=== PATIENT | female | born 1945 | race Caucasian/White ===

== ENCOUNTER 2022-07-09 16:43 | Outpatient (CLI) | payer MEDICARE, OTHER, SELFPAY ==
--- NOTE | ~2022-07-09 | MM_ITS ---
EXAMINATION: MM screening macarena BI w ernesto HISTORY: Screening mammogram TECHNIQUE: Craniocaudal and mediolateral oblique 3-D tomosynthesis images were obtained and synthetic 2-D images were generated. CAD analysis was submitted and interpreted. COMPARISON: No prior mammogram is available for comparison at this institution. BREAST PARENCHYMAL COMPOSITION: There are scattered areas of fibroglandular density. FINDINGS: RIGHT BREAST: There is a 2.8 cm mass in the posterior third of the upper outer quadrant of the breast 11 cm from the nipple with associated retraction of the overlying skin. LEFT BREAST: There is no suspicious mass, calcification, or architectural distortion to suggest malig jil. IMPRESSION: 1. Right breast mass. 2. Additional mammographic views and possible breast ultrasound are recommended. BI-RADS Category 0: Incomplete: Needs additional imaging evaluation. Reviewed, dictated and finalized at location A. IMPRESSION: 1. Right breast mass. 2. Additional mammographic views and possible breast ultrasound are recommended . BI-RADS Category 0: Incomplete: Needs additional imaging evaluation.
== END 2022-07-09 16:44 | disposition home or self-care (01) ==
PROVIDERS: PCP Emergency Medicine; Visit Provider Emergency Medicine
DX: Z12.31 Encounter for screening mammogram for malignant neoplasm of breast (principal); R92.8 Other abnormal and inconclusive findings on diagnostic imaging of breast
CPT/HCPCS: 77063; 77067

== ENCOUNTER 2022-07-31 13:12 | Outpatient (CLI) | payer MEDICARE, OTHER, SELFPAY ==
--- NOTE | ~2022-07-31 | MMUS_ITS ---
EXAMINATION: MM diagnostic macarena RT w ernesto, US breast RT limited HISTORY: Breast mass seen on prior examination. TECHNIQUE: Additional 3-D tomosynthesis images of the right breast were performed and synthetic 2-D i mages were generated. CAD analysis was submitted and interpreted. High resolution Limited right breas t ultrasound was performed. COMPARISON: 07/09/2022 BREAST PARENCHYMAL COMPOSITION: Breast composed of scattered areas of fibroglandular density FINDINGS: MAMMOGRAPHIC FINDINGS: There is a spiculated mass in the upper outer quadrant of the right breast with overlying skin thicke shin. This mass measures approximately 2.9 cm greatest dimension by mammography. ULTRASOUND: Limited right breast ultrasound: At 10:00, 7 cm from the nipple, there is an irregular shaped hypoech oic mass with antiparallel configuration and internal vascularity. This mass measures 2.5 x 2.2 x 2.2 cm. No significant posterior shadowing. IMPRESSION: 1. Complex right breast mass at 10:00, 7 cm from the nipple with spiculated margins. 2. Recommend ultrasound-guided right breast biopsy. BI-RADS category 5, highly suggestive of malignancy. Reviewed, dictated and finalized at location A. IMPRESSION: 1. Complex right breast mass at 10:00, 7 cm from the nipple with spiculated mar gins. 2. Recommend ultrasound-guided right breast biopsy. BI-RADS category 5, highly suggestive of malignancy.
== END 2022-07-31 13:13 | disposition home or self-care (01) ==
LOC: ANHIMG 13:13
PROVIDERS: PCP Emergency Medicine; Visit Provider Emergency Medicine
DX: R92.8 Other abnormal and inconclusive findings on diagnostic imaging of breast (principal)
CPT/HCPCS: 76642; 77061; 77065; G0279

== ENCOUNTER 2022-08-21 08:38 | Outpatient (CLI) | payer MEDICARE, OTHER, SELFPAY ==
--- NOTE | ~2022-08-21 | MMUS_ITS ---
US breast biopsy RT w image, MM post biopsy invasive RT EXAMINATION: US GUIDED NEEDLE BIOPSY WITH VACUUM ASSISTANCE DATE: 08/21/2022 10:06 CDT INDICATION: Palpable right breast mass. Recent ultrasound demonstrated a 14 mm hypoechoic solid lesi on. Ultrasound-guided core biopsy is requested to evaluate for malignancy. TECHNIQUE AND FINDINGS: The risks and potential benefits of the procedure were discussed with the patient, and written inform ed consent was obtained. After sterile preparation of the right breast, 1% lidocaine was utilized fo r local anesthesia. 1% lidocaine with epinephrine was used for deep anesthesia. A 10G vacuum-assisted biopsy gun needle was advanced through to the outer edge of the region of inter est from a lateral approach utilizing sonographic guidance. A total of 5 tissue core samples were ob tained through the lesion. An Inrad tissue marker clip was then placed at the biopsy site. Hemostasi s was achieved. The patient tolerated procedure well and there was no evidence of immediate complication. The patien t was given verbal instructions partly is from the department. Right breast mammograms to document t issue marker clip placement. The tissue samples were submitted to surgical pathology for histologic a nalysis. IMPRESSION: 1. Successful ultrasound-guided vacuum-assisted biopsy of right breast mass with tissue marker place ment. Please refer to pathology report for histologic analysis. Reviewed, dictated and finalized at location A. IMPRESSION: 1. Successful ultrasound-guided vacuum-assisted biopsy of right breast mass wi th tissue marker placement. Please refer to pathology report for histologic vito lysis.
== END 2022-08-21 08:39 | disposition home or self-care (01) ==
PROVIDERS: PCP Emergency Medicine; Visit Provider Surgery
DX: N63.11 Unspecified lump in the right breast, upper outer quadrant (principal); D05.11 Intraductal carcinoma in situ of right breast
CPT/HCPCS: 19083; 88305; 88342; 88365; A4648

== ENCOUNTER 2022-10-14 10:21 | Outpatient (CLI) | payer MEDICARE, OTHER, SELFPAY ==
--- NOTE | 2022-10-14 10:46 | ECG_ITS ---
Measurements Intervals [place] Rate: 62 P: -75 LA: 150 QRS: -25 QRSD: 117 T: 128 QT: 417 QTc: 426 Interpretive Statements SINUS RHYTHM BASELINE ARTIFACT NONSPECIFIC INTRAVENTRICULAR CONDUCTION DELAY BORDERLINE ECG NO PREVIOUS ECG AVAILABLE FOR COMPARISON Electronically Signed On 10-14-2022 17:56:11 BAND RIPSAW OPERATOR by Jeffery Muir M.D.
[2022-10-14 11:28] LABS: Anion Gap 6 mmol/L (8-16); Blood Urea Nitrogen 21 mg/dL (7-17); Carbon Dioxide 32 mmol/L (22-30); Chloride 94 mmol/L (98-107); Estimated Glomerular Filt Rate 54; Glucose 154 mg/dL (65-110); Potassium 3.4 mmol/L (3.4-5.0); Sodium 132 mmol/L (137-145)
== END 2022-10-14 10:22 | disposition home or self-care (01) ==
PROVIDERS: Anesthesiology; PCP Emergency Medicine; Visit Provider Surgery
DX: E11.9 Type 2 diabetes mellitus without complications (principal); I45.9 Conduction disorder, unspecified
CPT/HCPCS: 36415; 80048; 93005

== ENCOUNTER 2022-10-15 01:17 | Day surgery (SDC) | payer MEDICARE, OTHER, SELFPAY ==
[2022-10-02 10:21] VITALS: BMI 27.9
--- NOTE | 2022-10-02 10:37 | PC.NURSE ---
PRE-OP INSTRUCTIONS, PLEASE READ CAREFULLY Report to the Outpatient Waiting Room, entrance under the green pavilion located off [facility], at time _0830_ on date _10/15/22_. Planned Procedure Time: _1200_. NEEDLE LOCALIZATION SCHEDULED FOR 0930 Time changes happen often and if your time is changed the preop area will call you the afternoon before. - You and your visitor will be asked to self-screen and do not enter if you have any COVID symptoms. - Only one visitor is requested with a max of two and NO children visitors are allowed at this time. - The patient visitor may be requested to leave or wait in car when not with patient due to distancing restrictions. - A mask is required within the hospital. Patients may have clear liquids (water, carbonated beverages, clear teas, apple juice) until 3 hours prior to surgery (0900 AM) with a maximum of 20 ounces. - No food from midnight until time of surgery Take the following medications with a SIP of water the morning of surgery: _ASPIRIN PER DR. BEAUCHAMP, ISOSORBIDE, METOPROLOL_ Medications to discontinue _MELOXICAM PER DR. BEAUCHAMP_ Please no make-up, nail [place], hairspray, perfume, deodorant, or body powder the day of surgery. No jewelry (including any body piercings) or valuables the day of surgery, leave them at home. Please take a shower or bath the night before, or the morning of, surgery with an antibacterial soap. Wear comfortable, loose fitting clothing. - Jewelry must be removed prior to entering the operating room. Rings and piercings that are not removed may be cut off. - The hospital will not accept responsibility for valuables. - Please leave all valuables, including medications, at home the day of surgery. If you are going home after surgery, a licensed regional truck driver must drive you home. - NO public transportation without another adult if you receive anesthesia. - We recommend that an adult stay with you for 24 hours following discharge. - We also recommend that you do not drive, make important decision, drink alcoholic beverages, or take any drugs that were not prescribed by your health care provider for at least 24 hours after your discharge time. Follow any additional instructions given to you from your surgeon. HIBICLENS SHOWER DIRECTED If you or anyone in your household have experienced Covid symptoms in the past week, please notify your surgeon or the nurse liaison at the phone number below for possible testing. Telephone instructions given to _PATIENT_and asked if any additional questions and then verbalized understanding. Patient advised to call surgeon office or pre surgery nurse liaison [phone] if any additional questions.
[2022-10-15] VITALS (7 sets, daily range): BP systolic 101–129; BP diastolic 62–87; PULSE 52–63; RESP 16–22; TEMP 36.4–37.1; O2SAT 95–99
--- NOTE | ~2022-10-15 | NM_ITS ---
NM sentinel node inject only DATE: 10/15/2022 11:05 INDICATION: Preoperative radiopharmaceutical injection for sentinel node detection and axillary lymph node dissection for breast cancer TECHNIQUE: 4 equally divided doses totaling cumulative 1.311 mCi 99m technetium Lymphoseek were injec oralia subdermally at 12:00, 3:00, 6:00 and 9:00 periareolar locations. The patient was very cooperative and tolerated procedure without complaint. IMPRESSION: Preoperative periareolar subdermal 1.311 mCi 99m technetium Lymphoseek injections Reviewed, dictated and finalized at Location A. Reviewed, dictated and finalized at location A. HER OF THE HEARING IMPAIRED IMPRESSION: Preoperative periareolar subdermal 1.311 mCi 99m technetium Lympho seek injections
--- NOTE | ~2022-10-15 | MM_ITS ---
MM surgical specimen RT DATE: 10/15/2022 13:02 INDICATION: Surgical specimen TECHNIQUE: Single noncompression digital mammographic exposure of surgical soft tissue specimen COMPARISON: 10/15/2022 right renal localization mammographic images 08/21/2022 post biopsy mammogram 07/31/2022 diagnostic right mammogram FINDINGS: The approximately 3 cm mass with biopsy marker and guidewire are present within the surgica l specimen. IMPRESSION: Successful surgical excision of posterior upper outer quadrant right breast mass with mar ker Reviewed, dictated and finalized at Location A. Reviewed, dictated and finalized at location A. K AND CASE MAKER IMPRESSION: Successful surgical excision of posterior upper outer quadrant righ t breast mass with marker
--- NOTE | ~2022-10-15 | MM_ITS ---
MM needle loc RT DATE: 10/15/2022 11:33 INDICATION: Preoperative sonographically guided wire localization of right breast mass/mass marker TECHNIQUE: The purpose of the procedure, technique and potential locations were discussed with the geraldine cristobal. The patient indicated understanding and gave consent. The breast was placed in biopsy apparatus in lateral medial position with biopsy grid over the occupational therapist per diem ior upper outer right breast. The skin was prepared with sterile Betadine solution. 1% lidocaine loca l anesthetic was administered to the skin and underlying subcutaneous tissues. A 5 cm [place] Mammalok needle was introduced into the mass from a lateral approach. Mediolateral and craniocaudal mammograph ic exposures confirmed appropriate position of the needle within the mass. The wire was engaged throu gh the tip of the needle and the needle was withdrawn. Final lateral medial and craniocaudal views confirm the wire within the posterior upper outer quadran t approximately 3 cm mass. IMPRESSION: Successful preoperative mammographically guided wire localization of 3 cm posterior upper outer quadrant right breast mass Reviewed, dictated and finalized at Location A. Reviewed, dictated and finalized at location A. [employer] IMPRESSION: Successful preoperative mammographically guided wire localization o f 3 cm posterior upper outer quadrant right breast mass
[2022-10-15] MEDS: ACETAMINOPHEN 500 MG TABLET 1000 MG PO (08:38)
[2022-10-15] MEDS: KETOROLAC 15 MG/ML VIAL (*BKC) IV PUSH (10:26)
--- NOTE | 2022-10-15 11:03 | WPDANESEPPF ---
Anes - Initial Pre Proc Eval Procedure: Operation Date: 10/15/22 12:00 Proposed Procedures p Right Breast Lumpectomy with [place] Lymph Node Biopsy, - Tatianna Lala MD s Right Breast Ultrasound and/or Mammogram Guided Needle Localization with Lymphoscintography - Tatianna Lala MD Date/Time: 10/15/22 11:03 Surgeon: Tatianna Lala MD Pre Op Diagnosis: right breast CA Patient Data Age: 77 Gender: F Height: 1.64 m Weight: 72.3 kg Last Vital Signs Temp 98.7 F 10/15/22 08:46 Pulse 54 L 10/15/22 08:46 Resp 16 10/15/22 08:46 BP 120/70 10/15/22 08:46 Pulse Ox 98 10/15/22 08:46 O2 Del Method Room Air 10/15/22 08:46 Allergies Allergy/AdvReac Type Severity Reaction Status Date / Time No Known Allergies Allergy Verified 10/15/22 08:31 Home Medications Medication Instructions Recorded Confirmed Type atorvastatin 80 mg tablet 80 mg PO DAILY 11/19/20 10/15/22 History furosemide 40 mg tablet See Rx Instructions PO QAM 11/19/20 10/15/22 History isosorbide mononitrate 30 mg 30 mg PO DAILY 11/19/20 10/15/22 History tablet,extended release 24 hr losartan 25 mg tablet 25 mg PO DAILY 11/19/20 10/15/22 History metoprolol tartrate 100 mg tablet 100 mg PO DAILY 11/19/20 10/15/22 History potassium chloride 20 mEq 40 meq PO BID 11/19/20 10/15/22 History tablet,extended release(part/cryst) (Klor-Con M) spironolactone 25 mg tablet 25 mg PO DAILY 11/19/20 10/15/22 History glipizide 10 mg tablet See Rx Instructions .Route 10/14/21 10/15/22 Rx .COMPLEX #180 tabs aspirin 81 mg tablet,delayed 81 mg PO DAILY 12/30/21 10/15/22 History release (Adult Low Dose Aspirin) meloxicam 7.5 mg tablet 7.5 mg PO DAILY #90 tabs 07/07/22 10/15/22 Rx sitagliptin phosphate 50 mg tablet 50 mg PO DAILY #90 tabs 07/11/22 10/15/22 Rx (Januvia) chlorhexidine gluconate 4 % 1 applic topical .COMPLEX #118 mL 09/22/22 10/15/22 Rx topical liquid (Hibicletori) metolazone 2.5 mg tablet 2.5 mg QAM 10/02/22 10/15/22 History Patient hx anesthesia problems: none Family hx anesthesia problems: none Results Review: All pre-operative results and documents have been reviewed as part of the pre-operative evaluation. [facility] Past Medical History Medical History AAA (abdominal aortic aneurysm) (~2018) Arthritis Blurred vision Bronchitis CAD (coronary artery disease) Cataracts, both eyes CHF (congestive heart failure) Chicken pox Chronic pain Diabetes mellitus Flatulence High cholesterol HLD (hyperlipidemia) HTN (hypertension) Knee effusion, right Mumps Other screening mammogram Post-menopausal Right knee DJD Right knee DJD Surgical History Surgical History History of endovascular stent graft for abdominal aortic aneurysm (AAA) History of heart artery stent (~2017) S/P hysterectomy Family History Family History Father , 47 Heart attack due to cobalt treatment Heart attack Mother , 89 No problems noted. Social History Social History Social History: Patient drinks 3 cups of caffeine daily Smoking packs per day: 1 Smoking cigarettes per day: 20.0 Years smoked: 40 Smoking pack-years: 40.00 Smoking status: Former smoker Tobacco type: cigarettes Second hand tobacco smoke exposure: No Smoking end date: 10/19/16 Alcohol intake: current Drinks per week: 3 Alcohol use details: Patient drinks beer once weekly Substance use: never Substance use type: does not use Living arrangements: alone Gender identity (if verbalized by the patient): Female Sexual Orientation (if Verbalized by the Patient): Straight or Heterosexual Spiritual care concerns: No Anes - Eval Final PreProcedure Day of Procedure 10/15/22 11:03 Patient [place]
--- NOTE | 2022-10-15 11:16 | WPDHPUPDATE1 ---
History and Physical Update Update Date/Time: 10/15/22 11:16 History and Physical has been reviewed, including an updated exam of the patient. There are NO changes in the patient's condition. Risks, benefits, and alternatives have been discussed and questions answered. Patient agrees to proceed with procedure.
--- NOTE | 2022-10-15 11:44 | SUR.PREOP ---
Discussed delay with patient and family. Disappointed but understands.
[2022-10-15] MEDS: ceFAZolin 2 GM/D5W 50 ML 2 GM/50 ML BAG IVPB (12:21)
[2022-10-15] MEDS: ISOSULFAN BLUE 1% INJ 5 ML VIAL 2 ML SUB-Q (12:30)
--- NOTE | 2022-10-15 13:24 | W.PM.PROC2 ---
Procedure Note - Detailed Date of Procedure 10/15/22 Pre-op Diagnosis right breast CA Post-op Diagnosis Same Procedure Performed excisional biopsy/lumpectomy right breast invasive ductal carcinoma with preoperative needle localization, right axillary sentinel lymph node biopsy with preoperative lymphoscintigraphy Surgeon Tatianna Lala MD Anesthesia General and Local Indications 77-year-old female with biopsy-proven right invasive ductal carcinoma Findings palpable mass in RUO quadrant, at least 2 SLN Description of Procedure The patient was taken to the operating room and placed in the supine position. After adequate induction of general anesthesia, the patient was prepped and draped in the normal sterile fashion. A time-out was then done to verify the patient's identity, as well as the procedure being performed. I began by injecting 50% Lymphazurin blue mixed with saline in each of the 4 quadrants of the nipple-areolar complex. This was then massaged into the right axilla. I then localized the area around the previously placed wire. I then made a oval incision just around the guidewire. This was done because the overlying skin seemed to be slightly indurated and puckered. Once to the level of the breast tissue, I raised flaps around the incision to separate the breast tissue off the overlying dermis. I then carefully dissected around the wire making sure to get adequate tissue especially around the tip of the wire. Once I was circumferentially around the wire, I dissected posteriorly and excised the specimen. I then marked the specimen with a short stitch superiorly and a long stitch laterally. It was noted that there was not much margin near the inferior portion of the wire as I was already to the chest wall. The tissue was then sent to imaging, and the marker was confirmed within the specimen. Once achieved, it was again marked with a long stitch lateral and short stitch superior. I then gained hemostasis with the Bovie cautery. Using the yasmin counter, I was able to enter the axilla through the previous incision. A lymph node was immediately encountered, this was noted to be both hot and blue. I carefully excised this lymph node using both blunt and sharp dissection. The Yasmin counter was used to confirm this sentinel lymph node. After removal, I used the [place] counter again and another hot lymph node was encountered. This was excised as well. This will be sent as sentinel lymph node 2. I then used the Yasmin counter again and did not encounter any other hot areas. The right axilla was copiously irrigated. The subcutaneous tissue was closed with 3-0 Vicryl suture. Skin was closed with 4-0 Monocryl subcuticular suture. The patient tolerated the procedure well and was extubated in the operating room postoperatively. She will be sent to the recovery room in stable condition. Estimated Blood Loss 20 Drains No Packing No Pathology Yes Complications No immediate complications Condition Stable Disposition PACU [facility] Billing Surgery - Charge Forward: Surgery Billing
[2022-10-15] MEDS: BUPIVACAINE/EPINEPHRINE 0.5% 10 ML VIAL INFILTRATE (13:28)
[2022-10-15] MEDS: LACTATED RINGERS 1,000 ML 30 ML IV CONT (13:39)
--- NOTE | 2022-10-17 09:44 | PM.IMHP ---
H&P: HPI History of Present Illness Date/Time: 10/17/22 09:44 Chief Complaint: R breast cancer Narrative: The pt is a 77 y/o F seen in the office c R breast mass. Pt had U/S guided bx that came back c invasive ductal cancer. The pt was brought back to the office and all treatment options were discussed in full detail. The pt wants to proceed c lumpectomy and SLNB. Review of Systems Review of Systems: All systems reviewed & are unremarkable except as noted in HPI and below PMFSH Past Medical History Medical History AAA (abdominal aortic aneurysm) (~2018) Arthritis Blurred vision Bronchitis CAD (coronary artery disease) Cataracts, both eyes CHF (congestive heart failure) Chicken pox Chronic pain Diabetes mellitus Flatulence High cholesterol HLD (hyperlipidemia) HTN (hypertension) Knee effusion, right Mumps Other screening mammogram Post-menopausal Right knee DJD Right knee DJD Surgical History Surgical History History of endovascular stent graft for abdominal aortic aneurysm (AAA) History of heart artery stent (~2018) S/P hysterectomy Family History Family History Father , 47 Heart attack due to cobalt treatment Heart attack Mother , 89 No problems noted. Social History Social History Social History: Patient drinks 3 cups of caffeine daily Smoking packs per day: 1 Smoking cigarettes per day: 20.0 Years smoked: 40 Smoking pack-years: 40.00 Smoking status: Former smoker Tobacco type: cigarettes Second hand tobacco smoke exposure: No Smoking end date: 10/19/16 Alcohol intake: current Drinks per week: 3 Alcohol use details: Patient drinks beer once weekly Substance use: never Substance use type: does not use Gender identity (if verbalized by the patient): Female Sexual Orientation (if Verbalized by the Patient): Straight or Heterosexual Spiritual care concerns: No Meds Home Medications and Allergies Home Medications Medication Instructions Recorded Confirmed Type atorvastatin 80 mg tablet 80 mg PO DAILY 11/19/20 10/15/22 History furosemide 40 mg tablet See Rx Instructions PO QAM 11/19/20 10/15/22 History isosorbide mononitrate 30 mg 30 mg PO DAILY 11/19/20 10/15/22 History tablet,extended release 24 hr losartan 25 mg tablet 25 mg PO DAILY 11/19/20 10/15/22 History metoprolol tartrate 100 mg tablet 100 mg PO DAILY 11/19/20 10/15/22 History potassium chloride 20 mEq 40 meq PO BID 11/19/20 10/15/22 History tablet,extended release(part/cryst) (Klor-Con M) spironolactone 25 mg tablet 25 mg PO DAILY 11/19/20 10/15/22 History glipizide 10 mg tablet See Rx Instructions .Route 10/14/21 10/15/22 Rx .COMPLEX #180 tabs aspirin 81 mg tablet,delayed 81 mg PO DAILY 12/30/21 10/15/22 History release (Adult Low Dose Aspirin) meloxicam 7.5 mg tablet 7.5 mg PO DAILY #90 tabs 07/07/22 10/15/22 Rx sitagliptin phosphate 50 mg tablet 50 mg PO DAILY #90 tabs 07/11/22 10/15/22 Rx (Januvia) chlorhexidine gluconate 4 % 1 applic topical .COMPLEX #118 mL 09/22/22 10/15/22 Rx topical liquid (Hibiclens) metolazone 2.5 mg tablet 2.5 mg QAM 10/02/22 10/15/22 History docusate sodium 100 mg capsule 100 mg PO BID #30 caps 10/15/22 Rx (Colace) hydrocodone 5 mg-acetaminophen 325 1 tablet PO Q6H PRN pain #30 tabs 10/15/22 Rx mg tablet Allergies Allergy/AdvReac Type Severity Reaction Status Date / Time No Known Allergies Allergy Verified 10/15/22 08:31 Exam Const: General: cooperative, comfortable, no acute distress and ill appearing Chest: Other: R breast - wire present for need loc in RUO breast Resp: Auscultation: diminished lung sounds Cardio: Rate: regular rate Rhythm: regular rhythm GI: Inspection
== END 2022-10-15 15:10 | disposition home or self-care (01) ==
PROVIDERS: PCP Emergency Medicine; Visit Provider Surgery
PROC: (CPT 19301; principal; 2022-10-15 12:00)
PROC: (CPT 19301; 2022-10-15 12:00)
DX: C50.911 Malignant neoplasm of unspecified site of right female breast (principal); C77.3 Secondary and unspecified malignant neoplasm of axilla and upper limb lymph nodes; I25.10 Atherosclerotic heart disease of native coronary artery without angina pectoris; I11.0 Hypertensive heart disease with heart failure; I50.9 Heart failure, unspecified; E78.5 Hyperlipidemia, unspecified; E11.9 Type 2 diabetes mellitus without complications; Z79.84 Long term (current) use of oral hypoglycemic drugs; Z79.82 Long term (current) use of aspirin; Z95.5 Presence of coronary angioplasty implant and graft; Z87.891 Personal history of nicotine dependence
CPT/HCPCS: 19301; 38525; 19281; 38792; 76098; 88307; A9270; A9520; C1769; J0690; J1100; J1885; J2370; J2405; J2704; J3010; J7120

== ENCOUNTER 2023-03-10 12:46 | Outpatient (CLI) | payer MEDICARE, OTHER, SELFPAY ==
--- NOTE | ~2023-03-10 | DEXA_ITS ---
Bone Density Report Name: LOLIS THOMPSON Age: 77 Sex: Female Ethnicity: White Date of : 1945 Indication: postmenopausal; screening for osteoporosis; height loss; cancer; hysterectomy; Referring Provider: PITO MART Study: Bone densitometry was performed. Exam Date: March 10, 2023 Accession number: [id number] Bone Density: Region BMD T-score Z-score Classification AP Spine(L1-L4) 1.255 1.9 4.3 Normal Femoral Neck (Left) 0.647 -1.8 0.3 Osteopenia Total Hip (Left) 0.826 -1.0 0.9 Normal Femoral Neck (Right) 0.656 -1.7 0.4 Osteopenia Total Hip (Right) 0.802 -1.1 0.7 Osteopenia Total Hip Mean 0.814 -1.1 0.8 Osteopenia World Health Organization criteria for BMD impression classify patients as: Normal (T-score at or above -1.0), Osteopenia (T-score between -1.0 and -2.5), or Osteoporosis (T-score at or below -2.5). 10-year Fracture Risk(1): Major Osteoporotic Fracture 13% Hip Fracture 4.9% Reported Risk Factors: [place] (), Neck BMD=0.647, BMI=28.9, smoking (1) FRAX(R) Version 3.08. Fracture probability calculated for an untreated patient. Fracture probability may be lower if the patient has received treatment. Clinical Information Provided by Patient: Smokes Has the following medical conditions: Cancer, Hysterectomy Patient maximum height was 64 Menopause Age: 44 No regular weight bearing exercise Drinks caffeinated beverages Onset of menses at age 14 Number of children 0 Impression: The patient has low bone mass, based on the Left Femoral Neck T-score. The patient has an estimated ten-year risk of hip fracture of 4.9% and an estimated ten-year risk of major fracture of 13%, based on the WHO FRAX algorithm. The patient has risk factors, including: smoking. Discussion: BONE DENSITY IS LOW AT ONE OR MORE SKELETAL SITES. THE PATIENT'S BMD AND CLINICAL RISK FACTORS CONTRIBUTE TO THIS PATIENT'S INCREASED RISK OF FRACTURE. This patient's lowest T-score is low at one or more skeletal sites. It meets the World Health Organization's (WHO) criteria for ?low bone mass? (T-score between -1.0 and -2.5). The patient's 10-year risk of hip fracture as calculated by FRAX exceeds the threshold where pharmacological therapy is recommended by the National Osteoporosis Foundation (NOF). However, all treatment decisions require clinical judgment and consideration of individual patient factors, including patient preferences, comorbidities, previous drug use, risk factors not captured in the FRAX model (e.g., frailty, falls, vitamin D deficiency, increased bone turnover, interval significant decline in bone density) and possible under or overestimation of fracture risk by FRAX. The patient should follow a healthful lifestyle (good nutrition with adequate calcium and vitamin D, a
== END 2023-03-10 12:47 | disposition home or self-care (01) ==
PROVIDERS: PCP Emergency Medicine; Visit Provider Internal Medicine Hematology & Oncology
DX: M85.852 Other specified disorders of bone density and structure, left thigh (principal); M85.851 Other specified disorders of bone density and structure, right thigh
CPT/HCPCS: 36415; 77080; 80053; 85025; 86300

== ENCOUNTER 2023-03-10 13:15 | Outpatient (CLI) | payer MEDICARE, OTHER, SELFPAY ==
[2023-03-10 13:34] LABS: Basophils Absolute Auto 0.1 K/mm3 (0.0-0.1); Basophils Percent Auto 0.5 % (0.2-1.2); Eosinophils Absolute Auto 0.2 K/mm3 (0-0.3); Eosinophils Percent Auto 2.1 % (0-4.4); Hematocrit 43.8 % (37.0-47.0); Hemoglobin 15.4 g/dL (12.0-15.0); Immature Granulocyte Absolute 0.06 K/mm3 (0.00-0.031); Immature Granulocyte Percent A 0.6 % (0-0.5); Lymphocytes Absolute Auto 1.77 K/mm3 (0.9-3.2); Lymphocytes Percent Auto 18.4 % (18.3-44.2); Mean Corpuscular HGB Conc 35.2 g/dl (32-36); Mean Corpuscular Hemoglobin 32.1 pg (26-34); Mean Corpuscular Volume 91.3 fl (80-100); Mean Platelet Volume 9.8 fl (7.4-10.4); Monocytes Absolute Auto 0.9 K/mm3 (0.1-0.6); Monocytes Percent Auto 9.1 % (2.6-8.5); Neutrophils Absolute Auto 6.7 K/mm3 (1.3-6.7); Neutrophils Percent Auto 69.3 % (45.5-73.1); Platelet Count Result 190 k/mm3 (150-375); White Blood Count 9.6 K/mm3 (4.5-10.0)
[2023-03-10 16:44] LABS: Alanine Aminotransferase 27 U/L (6-35); Albumin Level 4.6 g/dL (3.5-5.1); Alkaline Phosphatase 88 U/L (38-126); Anion Gap 7 mmol/L (8-16); Aspartate Amino Transferase 28 U/L (14-36); Bilirubin,Total 0.9 mg/dL (0.2-1.3); Blood Urea Nitrogen 24 mg/dL (7-17); Calcium 9.1 mg/dL (8.4-10.2); Carbon Dioxide 33 mmol/L (22-30); Chloride 90 mmol/L (98-107); Estimated Glomerular Filt Rate > 60; Glucose 127 mg/dL (65-110); Potassium 3.8 mmol/L (3.4-5.0); Sodium 130 mmol/L (137-145)
[2023-03-15 21:34] LABS: CA 15-3 19 U/mL (<32)
== END 2023-03-10 13:16 | disposition home or self-care (01) ==
LOC: ANHLAB 13:17
PROVIDERS: PCP Emergency Medicine; Visit Provider Internal Medicine Hematology & Oncology
DX: C50.911 Malignant neoplasm of unspecified site of right female breast (principal); Z17.0 Estrogen receptor positive status [ER+]
CPT/HCPCS: 36415; 80053; 85025; 86300

== ENCOUNTER 2023-06-15 09:39 | Outpatient (CLI) | payer MEDICARE, OTHER, SELFPAY ==
[2023-06-15 09:54] LABS: Basophils Absolute Auto 0.1 K/mm3 (0.0-0.1); Basophils Percent Auto 0.7 % (0.2-1.2); Eosinophils Absolute Auto 0.2 K/mm3 (0-0.3); Eosinophils Percent Auto 2.1 % (0-4.4); Hematocrit 43.6 % (37.0-47.0); Immature Granulocyte Absolute 0.04 K/mm3 (0.00-0.031); Immature Granulocyte Percent A 0.5 % (0-0.5); Lymphocytes Absolute Auto 1.12 K/mm3 (0.9-3.2); Lymphocytes Percent Auto 13.8 % (18.3-44.2); Mean Corpuscular HGB Conc 34.4 g/dl (32-36); Mean Corpuscular Hemoglobin 32.3 pg (26-34); Mean Platelet Volume 10.1 fl (7.4-10.4); Monocytes Absolute Auto 0.6 K/mm3 (0.1-0.6); Monocytes Percent Auto 7.7 % (2.6-8.5); Neutrophils Absolute Auto 6.1 K/mm3 (1.3-6.7); Neutrophils Percent Auto 75.2 % (45.5-73.1); Platelet Count Result 187 k/mm3 (150-375); Red Blood Count 4.64 M/mm3 (4.2-5.4); Red Cell Distribution Width 12.7 % (11.5-14.5); White Blood Count 8.1 K/mm3 (4.5-10.0)
[2023-06-15 11:19] LABS: Alanine Aminotransferase 17 U/L (6-35); Albumin Level 4.3 g/dL (3.5-5.1); Alkaline Phosphatase 68 U/L (38-126); Anion Gap 5 mmol/L (8-16); Aspartate Amino Transferase 22 U/L (14-36); Blood Urea Nitrogen 18 mg/dL (7-17); Calcium 8.9 mg/dL (8.4-10.2); Carbon Dioxide 32 mmol/L (22-30); Chloride 94 mmol/L (98-107); Estimated Glomerular Filt Rate 54; Glucose 142 mg/dL (65-110); Potassium 3.6 mmol/L (3.4-5.0); Sodium 131 mmol/L (137-145)
[2023-06-18 13:05] LABS: CA 15-3 17 U/mL (<32)
== END 2023-06-15 09:40 | disposition home or self-care (01) ==
LOC: ANHLAB 09:42
PROVIDERS: PCP Emergency Medicine; Visit Provider Internal Medicine Hematology & Oncology
DX: C50.911 Malignant neoplasm of unspecified site of right female breast (principal); Z17.0 Estrogen receptor positive status [ER+]
CPT/HCPCS: 36415; 80053; 85025; 86300

== ENCOUNTER 2023-06-25 09:49 | Outpatient (CLI) | payer MEDICARE, OTHER, SELFPAY ==
--- NOTE | ~2023-06-25 | MM_ITS ---
EXAMINATION: MM diagnostic macarena BI w ernesto HISTORY: Status post right partial mastectomy and radiotherapy for breast malignancy TECHNIQUE: ML, MLO and CC 3-D tomosynthesis images of both breasts were performed and synthetic 2-D i mages were generated. CAD analysis was submitted and interpreted. COMPARISON: 07/31/2022iagnosticright mammogram and limited right breast ultrasound 07/09/2022 bilateral screening mammogram BREAST PARENCHYMAL COMPOSITION: The breasts are heterogeneously dense, which may obscure small masses . FINDINGS: There is diffuse skin thickening of the right breast and diffuse accentuation of the fibrog landular stroma of the right breast since 07/31/2022. There is interval resolution of the 2.5 cm irre gular high density mass in the posterior upper outer right breast near the axillary tail. Scattered bilateral benign calcifications are noted. No suspicious mass either breast is evident. No significant new or developing density or architectura l distortion or other significant finding or significant change is noted on the left. IMPRESSION: 1. Diffuse skin thickening and accentuated fibroglandular stroma of the right breast; interval resolu tion of previously reported 2.5 cm mass in the right axillary tail since 07/31/2022 2. Differential diagnosis for the right skin thickening and diffusely accentuated stroma would includ e postradiation change, inflammatory carcinoma, malignant obstruction of lymphatic channels. 3. MR breast examination is recommended BI-RADS Category 0: Incomplete: Needs additional imaging evaluation. Reviewed, dictated and finalized at location A. IMPRESSION: 1. Diffuse skin thickening and accentuated fibroglandular stroma of the right b reast; interval resolution of previously reported 2.5 cm mass in the right axil quiana tail since 07/31/2022 2. Differential diagnosis for the right skin thickening and diffusely accentuat ed stroma would include postradiation change, inflammatory carcinoma, malignant obstruction of lymphatic channels. 3. MR breast examination is recommended BI-RADS Category 0: Incomplete: Needs additional imaging evaluation.
== END 2023-06-25 09:50 | disposition home or self-care (01) ==
PROVIDERS: PCP Emergency Medicine; Visit Provider Internal Medicine Hematology & Oncology
DX: C50.911 Malignant neoplasm of unspecified site of right female breast (principal); Z17.0 Estrogen receptor positive status [ER+]; R92.8 Other abnormal and inconclusive findings on diagnostic imaging of breast
CPT/HCPCS: 77062; 77066; G0279

== ENCOUNTER 2023-10-14 12:31 | Outpatient (CLI) | payer MEDICARE, OTHER, SELFPAY ==
--- NOTE | ~2023-10-14 | MR_ITS ---
MR breast BI wo/w con 10/16/2023 10:52 PERFORATOR LOADER INDICATION: Abnormal skin thickening and fibroglandular stroma of the right breast. MRI recommended. History of right breast cancer status post treatment. TECHNIQUE: MRI of the breasts perform using standard protocol pre-and post IV contrast with the follo wing sequences: Axial T2 STIR, axial T1, axial vibrant T1 with fat suppression precontrast and multip hasic postcontrast. COMPARISON: Diagnostic mammogram dated 06/25/2023 and ultrasound dated 08/21/2022 FINDINGS: There is diffuse skin thickening of the right breast with increased breast parenchymal stro ma, likely sequela of previous radiation therapy following treatment for breast cancer. There is mild background parenchymal enhancement. No enhancing lesions following contrast administration. No are as of enhancement meeting threshold criteria on CAD analysis. No evidence of signal abnormalities in the axillary or internal mammary node distributions. LEFT BREAST: No signal abnormalities on precontrast sequences. There is mild background parenchymal enhancement. There is segmental nonmass-like enhancement of the upper inner quadrant of the left lauren st with the area measuring 3.6 x 1.4 x 1.4 cm with rapid washout kinetics. No discrete associated mas s identified. No evidence of signal abnormalities in the axillary or internal mammary node distributi ons.] IMPRESSION: 1: Right breast: Negative. No evidence of malignancy. BI-RADS category 2. Recommend annual mammo graphy follow-up. 2: Left breast: Segmental nonmass-like enhancement upper inner quadrant of the left breast posterior ly at 9:00 measuring 3.6 x 1.4 x 1.4 cm. Findings are nonspecific. Follow-up diagnostic left mammogra m and left breast ultrasound recommended. BI-RADS Category 0. Reviewed, dictated and finalized at location A. ORATOR LOADER IMPRESSION: 1: Right breast: Negative. No evidence of malignancy. BI-RADS category 2. Recommend annual mammography follow-up. 2: Left breast: Segmental nonmass-like enhancement upper inner quadrant of the left breast posteriorly at 9:00 measuring 3.6 x 1.4 x 1.4 cm. Findings are non specific. Follow-up diagnostic left mammogram and left breast ultrasound recomm ended. BI-RADS Category 0.
== END 2023-10-14 12:32 | disposition home or self-care (01) ==
PROVIDERS: PCP Emergency Medicine; Visit Provider Internal Medicine Hematology & Oncology
DX: R92.8 Other abnormal and inconclusive findings on diagnostic imaging of breast (principal)
CPT/HCPCS: 77049; A9577; C8908

== ENCOUNTER 2023-10-21 14:20 | Outpatient (CLI) | payer MEDICARE, OTHER, SELFPAY ==
[2023-10-21 14:36] LABS: Basophils Absolute Auto 0.1 K/mm3 (0.0-0.1); Basophils Percent Auto 0.6 % (0.2-1.2); Eosinophils Absolute Auto 0.2 K/mm3 (0-0.3); Eosinophils Percent Auto 2.3 % (0-4.4); Hematocrit 39.9 % (37.0-47.0); Immature Granulocyte Absolute 0.06 K/mm3 (0.00-0.031); Immature Granulocyte Percent A 0.6 % (0-0.5); Lymphocytes Absolute Auto 2.12 K/mm3 (0.9-3.2); Lymphocytes Percent Auto 21.1 % (18.3-44.2); Mean Corpuscular HGB Conc 35.1 g/dl (32-36); Mean Corpuscular Hemoglobin 32.6 pg (26-34); Mean Corpuscular Volume 92.8 fl (80-100); Mean Platelet Volume 9.3 fl (7.4-10.4); Monocytes Absolute Auto 0.9 K/mm3 (0.1-0.6); Neutrophils Absolute Auto 6.7 K/mm3 (1.3-6.7); Neutrophils Percent Auto 66.4 % (45.5-73.1); Platelet Count Result 178 k/mm3 (150-375); Red Cell Distribution Width 13.2 % (11.5-14.5)
[2023-10-21 14:41] LABS: Blood Urea Nitrogen 29 mg/dL (8-26); Carbon Dioxide 28 mmol/L (22-30); Chloride 93 mmol/L (98-109); Estimated Glomerular Filt Rate 40; Glucose 135 mg/dL (70-105); Ionized Calcium (POC) 1.11 mmol/L (1.11-1.31); Potassium 4.1 mmol/L (3.5-4.9); Sodium 132 mmol/L (138-146)
[2023-10-21 15:20] LABS: Alanine Aminotransferase 15 U/L (6-35); Albumin Level 4.2 g/dL (3.5-5.1); Alkaline Phosphatase 55 U/L (38-126); Anion Gap 10 mmol/L (8-16); Aspartate Amino Transferase 20 U/L (14-36); Bilirubin,Total 0.8 mg/dL (0.2-1.3); Blood Urea Nitrogen 29 mg/dL (7-17); Calcium 9.1 mg/dL (8.4-10.2); Carbon Dioxide 27 mmol/L (22-30); Chloride 93 mmol/L (98-107); Estimated Glomerular Filt Rate 44; Glucose 139 mg/dL (65-110); Potassium 4.2 mmol/L (3.4-5.0); Sodium 130 mmol/L (137-145)
[2023-10-24 04:34] LABS: CA 15-3 22 U/mL (<32)
== END 2023-10-21 14:21 | disposition home or self-care (01) ==
LOC: ANHLAB 14:22
PROVIDERS: PCP Emergency Medicine; Visit Provider Internal Medicine Hematology & Oncology
DX: C50.911 Malignant neoplasm of unspecified site of right female breast (principal); Z17.0 Estrogen receptor positive status [ER+]
CPT/HCPCS: 36415; 80047; 80053; 85025; 86300

== ENCOUNTER 2023-12-03 11:14 | Outpatient (CLI) | payer MEDICARE, OTHER, SELFPAY ==
--- NOTE | ~2023-12-03 | MM_ITS ---
EXAMINATION: MM diagnostic macarena LT w ernesto HISTORY: Nonmass enhancement on MRI. TECHNIQUE: Craniocaudal, mediolateral, and mediolateral oblique 3-D tomosynthesis images of the left breast were performed and synthetic 2-D images were generated. CAD analysis was submitted and interpr eted. COMPARISON: 10/14/2023, 06/25/2023, 07/09/2022 BREAST PARENCHYMAL COMPOSITION: There are scattered areas of fibroglandular density. FINDINGS: No suspicious mass, calcification, or architectural distortion are identified to suggest ma lignancy. There has been no suspicious interval change. No mammographic correlate is identified for the area of nonmass enhancement described on the comparison MRI. MRI finding is most consistent with artifact related to failed fat suppression. IMPRESSION: 1. No mammographic evidence of malignancy. 2. Recommend routine screening mammography. BI-RADS Category 1: Negative Reviewed, dictated and finalized at location A. RIVETING MACHINE OPERATOR
== END 2023-12-03 11:15 | disposition home or self-care (01) ==
PROVIDERS: PCP Emergency Medicine; Visit Provider Internal Medicine Hematology & Oncology
DX: C50.911 Malignant neoplasm of unspecified site of right female breast (principal); Z17.0 Estrogen receptor positive status [ER+]; R92.8 Other abnormal and inconclusive findings on diagnostic imaging of breast
CPT/HCPCS: 77061; 77065; G0279

== ENCOUNTER 2024-01-13 10:01 | Outpatient (CLI) | payer MEDICARE, OTHER, SELFPAY ==
[2024-01-13 10:21] LABS: Basophils Absolute Auto 0.1 K/mm3 (0.0-0.1); Eosinophils Absolute Auto 0.2 K/mm3 (0-0.3); Eosinophils Percent Auto 2.6 % (0-4.4); Hematocrit 40.5 % (37.0-47.0); Hemoglobin 13.8 g/dL (12.0-15.0); Immature Granulocyte Absolute 0.05 K/mm3 (0.00-0.031); Immature Granulocyte Percent A 0.7 % (0-0.5); Lymphocytes Percent Auto 20.6 % (18.3-44.2); Mean Corpuscular HGB Conc 34.1 g/dl (32-36); Mean Corpuscular Hemoglobin 32.9 pg (26-34); Mean Corpuscular Volume 96.4 fl (80-100); Mean Platelet Volume 9.9 fl (7.4-10.4); Monocytes Absolute Auto 0.5 K/mm3 (0.1-0.6); Neutrophils Percent Auto 68.1 % (45.5-73.1); Platelet Count Result 149 k/mm3 (150-375); Red Cell Distribution Width 13.1 % (11.5-14.5); White Blood Count 7.3 K/mm3 (4.5-10.0)
[2024-01-13 13:56] LABS: Alanine Aminotransferase 18 U/L (6-35); Albumin Level 3.9 g/dL (3.5-5.1); Alkaline Phosphatase 56 U/L (38-126); Anion Gap 4 mmol/L (4-12); Aspartate Amino Transferase 33 U/L (14-36); Bilirubin,Total 0.7 mg/dL (0.2-1.3); Blood Urea Nitrogen 31 mg/dL (7-17); Calcium 8.9 mg/dL (8.4-10.2); Carbon Dioxide 29 mmol/L (22-30); Chloride 102 mmol/L (98-107); Estimated Glomerular Filt Rate 54; Glucose 245 mg/dL (65-110); Potassium 4.4 mmol/L (3.4-5.0); Sodium 135 mmol/L (137-145)
[2024-01-16 10:10] LABS: CA 15-3 18 U/mL (<32)
== END 2024-01-13 10:02 | disposition home or self-care (01) ==
PROVIDERS: PCP Emergency Medicine; Visit Provider Internal Medicine Hematology & Oncology
DX: C50.911 Malignant neoplasm of unspecified site of right female breast (principal); Z17.0 Estrogen receptor positive status [ER+]
CPT/HCPCS: 36415; 80053; 85025; 86300

== ENCOUNTER 2024-05-05 09:34 | Outpatient (CLI) | payer MEDICARE, OTHER, SELFPAY ==
[2024-05-05 09:53] LABS: Basophils Absolute Auto 0.1 K/mm3 (0.0-0.1); Basophils Percent Auto 0.7 % (0.2-1.2); Eosinophils Absolute Auto 0.3 K/mm3 (0-0.3); Eosinophils Percent Auto 2.7 % (0-4.4); Hemoglobin 15.1 g/dL (12.0-15.0); Immature Granulocyte Absolute 0.05 K/mm3 (0.00-0.031); Immature Granulocyte Percent A 0.5 % (0-0.5); Lymphocytes Absolute Auto 1.78 K/mm3 (0.9-3.2); Lymphocytes Percent Auto 17.8 % (18.3-44.2); Mean Corpuscular HGB Conc 35.1 g/dl (32-36); Mean Corpuscular Volume 94.1 fl (80-100); Mean Platelet Volume 10.2 fl (7.4-10.4); Monocytes Absolute Auto 0.8 K/mm3 (0.1-0.6); Monocytes Percent Auto 8.4 % (2.6-8.5); Neutrophils Percent Auto 69.9 % (45.5-73.1); Platelet Count Result 176 k/mm3 (150-375); Red Blood Count 4.57 M/mm3 (4.2-5.4); Red Cell Distribution Width 12.6 % (11.5-14.5)
[2024-05-05 10:25] LABS: Alanine Aminotransferase 14 U/L (6-35); Albumin Level 4.3 g/dL (3.5-5.1); Alkaline Phosphatase 61 U/L (38-126); Anion Gap 11 mmol/L (4-12); Aspartate Amino Transferase 21 U/L (14-36); Bilirubin,Total 0.8 mg/dL (0.2-1.3); Blood Urea Nitrogen 27 mg/dL (7-17); Calcium 9.1 mg/dL (8.4-10.2); Carbon Dioxide 29 mmol/L (22-30); Chloride 94 mmol/L (98-107); Estimated Glomerular Filt Rate 44; Glucose 158 mg/dL (65-110); Potassium 3.7 mmol/L (3.4-5.0); Sodium 134 mmol/L (137-145)
[2024-05-10 04:05] LABS: CA 15-3 20 U/mL (<32); CA 19-9 25 U/mL (<34)
== END 2024-05-05 09:35 | disposition home or self-care (01) ==
PROVIDERS: PCP Emergency Medicine; Visit Provider Internal Medicine Hematology & Oncology
DX: C50.911 Malignant neoplasm of unspecified site of right female breast (principal); Z17.0 Estrogen receptor positive status [ER+]
CPT/HCPCS: 36415; 80053; 85025; 86300; 86301

== ENCOUNTER 2024-08-29 09:50 | Outpatient (CLI) | payer MEDICARE, OTHER, SELFPAY ==
[2024-08-29 10:04] LABS: Basophils Absolute Auto 0.1 K/mm3 (0.0-0.1); Basophils Percent Auto 0.9 % (0.2-1.2); Eosinophils Absolute Auto 0.1 K/mm3 (0-0.3); Eosinophils Percent Auto 1.8 % (0-4.4); Hematocrit 38.3 % (37.0-47.0); Hemoglobin 13.3 g/dL (12.0-15.0); Immature Granulocyte Absolute 0.07 K/mm3 (0.00-0.031); Lymphocytes Absolute Auto 1.42 K/mm3 (0.9-3.2); Lymphocytes Percent Auto 20.2 % (18.3-44.2); Mean Corpuscular HGB Conc 34.7 g/dl (32-36); Mean Platelet Volume 9.9 fl (7.4-10.4); Monocytes Absolute Auto 0.5 K/mm3 (0.1-0.6); Monocytes Percent Auto 7.1 % (2.6-8.5); Neutrophils Absolute Auto 4.9 K/mm3 (1.3-6.7); Platelet Count Result 156 k/mm3 (150-375); Red Blood Count 4.03 M/mm3 (4.2-5.4)
[2024-08-29 11:54] LABS: Alanine Aminotransferase 13 U/L (6-35); Albumin Level 3.8 g/dL (3.5-5.1); Alkaline Phosphatase 43 U/L (38-126); Anion Gap 10 mmol/L (4-12); Aspartate Amino Transferase 19 U/L (14-36); Bilirubin,Total 0.7 mg/dL (0.2-1.3); Blood Urea Nitrogen 28 mg/dL (7-17); Calcium 8.6 mg/dL (8.4-10.2); Carbon Dioxide 29 mmol/L (22-30); Chloride 95 mmol/L (98-107); Estimated Glomerular Filt Rate 44; Glucose 273 mg/dL (65-110); Potassium 3.6 mmol/L (3.4-5.0); Sodium 134 mmol/L (137-145)
[2024-08-31 04:04] LABS: CA 15-3 17 U/mL (<32)
== END 2024-08-29 09:51 | disposition home or self-care (01) ==
LOC: ANHLAB 09:51
PROVIDERS: PCP Emergency Medicine; Visit Provider Internal Medicine Hematology & Oncology
DX: C50.911 Malignant neoplasm of unspecified site of right female breast (principal); Z17.0 Estrogen receptor positive status [ER+]
CPT/HCPCS: 36415; 80053; 85025; 86300

== ENCOUNTER 2024-12-28 09:56 | Outpatient (CLI) | payer MEDICARE, OTHER, SELFPAY ==
[2024-12-28 10:13] LABS: Basophils Absolute Auto 0.1 K/mm3 (0.0-0.1); Basophils Percent Auto 0.8 % (0.2-1.2); Eosinophils Absolute Auto 0.2 K/mm3 (0-0.3); Eosinophils Percent Auto 1.6 % (0-4.4); Hematocrit 39.4 % (37.0-47.0); Hemoglobin 13.5 g/dL (12.0-15.0); Immature Granulocyte Absolute 0.06 K/mm3 (0.00-0.031); Immature Granulocyte Percent A 0.6 % (0-0.5); Lymphocytes Absolute Auto 1.45 K/mm3 (0.9-3.2); Lymphocytes Percent Auto 15.6 % (18.3-44.2); Mean Corpuscular HGB Conc 34.3 g/dl (32-36); Mean Corpuscular Volume 96.3 fl (80-100); Mean Platelet Volume 9.5 fl (7.4-10.4); Monocytes Absolute Auto 0.6 K/mm3 (0.1-0.6); Monocytes Percent Auto 6.3 % (2.6-8.5); Neutrophils Percent Auto 75.1 % (45.5-73.1); Platelet Count Result 151 k/mm3 (150-375); Red Blood Count 4.09 M/mm3 (4.2-5.4); Red Cell Distribution Width 13.1 % (11.5-14.5); White Blood Count 9.3 K/mm3 (4.5-10.0)
--- OUTSIDE RECORDS SUMMARY | 2024-12-28 10:57 | XMS_ITS | Encounter Summary ---
Author Organization [facility] Facility Care Team Providers Care Armature Straightener Name Role Phone Solomon Ortiz MD Primary Care Provider [phone] Migue Arevalo MD Unavailable [phone] Tristan Crawford MD Primary Care Provide r Encounter Details Date Type Department Care Team (Latest Contact Info) Description 11/10/2017 Orders Only [facility] CLINCONV ProviderTiburcio MD [address] [place] [id number] Social History Tobacco Use Types Packs/Day Years Used Date Smoking Tobacco: Never Assessed Comments Unknown Sex and Gender Information Value Date Recorded Sex Assigned at Not on file Legal Sex Female 8:21 PM NIKE ATHLETE Gender Identity Not on file Sexual Orientation Not on file documented as of this encounter Plan of Treatment Not on file documented as of this encounter Procedures Procedure Name Priority Date/Time Associated Diagnosis Comments SCAN - LABS 11/12/2017 12:00 AM NIKE ATHLETE documented in this encounter Results * SCAN - LABS (11/12/2017 12:00 AM NIKE ATHLETE) Narrative 11/12/2017 12:00 AM NIKE ATHLETE Ordered by an unspecified provider. Historical Provider Final Res ult documented in this encounter Visit Diagnoses Not on filedocumented in this encounter Care Teams Armature Straightener Relationship Specialty Start Date End Date Solomon Ortiz MD [address] [place] [id number] PCP - General Family Medicine 05/23/19 02/06/21 Tristan Crawford MD [address] [place] [address] PCP - General Emergency Medicine 02/07/21 Migue Arevalo MD [address] [place] [address] Consulting Physician Cardiology 05/26/19 documented as of this encounter
--- OUTSIDE RECORDS SUMMARY | 2024-12-28 10:57 | XMS_ITS | Clinical Summary ---
Author Organization [facility] Address [address] [place] [address] Care Team Providers Care Juice Mixer Name Role Phone Tristan Crawford MD Primary Care Provider [phone] Allergies No known active allergies Medications atorvastatin (LIPITOR) 80 mg tablet 3 Active docusate sodium (COLACE) 100 mg capsule Take 100 mg by mouth 2 times daily. 2 Active furosemide (LASIX) 40 mg tablet 2 Active glipiZIDE (GLUCOTROL) 10 mg tablet TAKE 1 TABLET BY MOUTH TWICE DAILY BEFORE BREAKFAST AND SUPPER 3 Active HYDROcodone-acet aminophen (NORCO) 5-325 mg tablet Take 1 Tablet by mouth every 6 hours as needed. 2 Active isosorbide mononitrate (IMDUR) 30 mg Extended Release 24 hour tablet 2 Active losartan (COZAAR) 25 mg tablet 2 Active metOLazone (ZAROXOLYN) 2.5 mg tablet 2 Active metoprolol tartrate (LOPRESSOR) 100 mg tablet 3 Active potassium chloride (KLOR-CON) 20 mEq Extended Release tablet Take 40 mEq by mouth 2 times daily. 3 Active spironolactone (ALDACTONE) 25 mg tablet Take 25 mg by mouth daily. 2 Active Januvia 50 mg Tablet Take 50 mg by mouth daily. 3 Active aspirin (ECOTRIN EC) 81 mg Tablet, Delayed Release (E.C.) Take 81 mg by mouth daily. 1 Active meloxicam (MOBIC) 7.5 mg tablet Take 7.5 mg by mouth daily. Active chlorhexidine gluconate (HIBICLENS) 4 % Liquid Apply to affected area. Active tamoxifen (NOLVADEX) 20 mg tablet TAKE 1 TABLET(20 MG) BY MOUTH DAILY 90 Tablet 3 Active Active Problems No known active problems Encounters Date Type Department Care Team Description 12/07/2024 External Device Data ST[facility] ABSTRACTION Provider, Abstract 11/16/2024 External Device Data STL ABSTRACTION Provider, Abstract 11/10/2024 External Device Data STL ABSTRACTION Provider, Abstract from Last 3 Months Family History Medical History Relation Name Comments No Known Problems Father No Known Problems Mother Diabetes Sister Relation Name Status Comments Father Mother Sister Alive Social History Tobacco Use Types Packs/Day Years Used Date Smoking Tobacco: Some Days Cigarettes 0.5 20 Started: 10/19/1996; Last attempted to quit: 10/19/2016 Smokeless Tobacco: Never Tobacco Cessation:Ready to Q uit: Not Asked; Counseling Given: Not Answered Alcohol Use Standard Drinks/Week Comments Yes 0 (1 standard drink = 0.6 oz pur e alcohol) socially, beer onlly Comments Unknown Sex and Gender Information Value Date Recorded Sex Assigned at Not on file Legal Sex Female 9:20 AM NATIONAL OPELINT ANALYST Gender Identity Not on file Sexual Orientation Not on file Last Filed Vital Signs Vital Sign Reading Time Taken Comments Blood Pressure 135/63 09/05/2024 11:09 AM NATIONAL OPELINT ANALYST Pulse 55 09/05/2024 11:09 AM NATIONAL OPELINT ANALYST Temperature 36.4 C (97.5 F) 09/05/2024 11:09 AM NATIONAL OPELINT ANALYST Respiratory Rate 18 09/05/2024 11:09 AM NATIONAL OPELINT ANALYST Oxygen Saturation 95% 09/05/2024 11:09 AM NATIONAL OPELINT ANALYST Inhaled Oxygen Concentration - - Weight 72.1 kg (159 lb) 09/05/2024 11:09 AM NATIONAL OPELINT ANALYST Height 162.6 cm (5' 4 ) 11/04/2022 3:02 PM NATIONAL OPELINT ANALYST Body Mass Index 27.29 11/04/2022 3:02 PM NATIONAL OPELINT ANALYST Plan of Treatment Upcoming Encounters Date Type Department Care Team (Late st Contact Info) Description 01/04/2025 11:30 AM CDT Office Visit [facility] Oncology and Hematology - [place] [address] [place] [id number] Panda Busby MD [address] [address] [place] [address] Health Maintenance Due Date Last Done Comments DTAP/TDAP/TD VACCINES (1 - Tdap) 1964 PNEUMOCOCCAL VACCINE 50+ YEARS (1 of 2 - PCV) 04/25/19 68 Traditional Medicare (ACO) Annual Wellness Visit 04/25 ZOSTER VACCINE (1 of 2) 1997 RSV VACCINE (60+ or ) (1 - 1-dose 75+ series) 2022 INFLUENZA VACCINE (#1) 2024 OSTEOPOROSIS SCREENING Completed 03/10/2023 Insurance MEDICARE [employer] [facility] Care Teams Juice Mixer Relationship Specialty Start Date End Date Tristan Crawford MD [address] [facility] [address] [place] [address] PCP - General Internal Medicine 10/31/22
--- OUTSIDE RECORDS SUMMARY | 2024-12-28 10:57 | XMS_ITS | Encounter Summary ---
Author Organization [facility] Facility Care Team Providers Care Presales Consultant Name Role Phone Solomon Ortiz MD Primary Care Provider [phone] Migue Arevalo MD Unavailable [phone] Tristan Crawford MD Primary Care Provide r Encounter Details Date Type Department Care Team (Latest Contact Info) Description 11/22/2018 Orders Only [facility] CLINCONV ProviderTiburcio MD [address] [place] [address] Social History Tobacco Use Types Packs/Day Years Used Date Smoking Tobacco: Never Assessed Comments Unknown Sex and Gender Information Value Date Recorded Sex Assigned at Not on file Legal Sex Female 8:[address]INTER HELPER Gender Identity Not on file Sexual Orientation Not on file documented as of this encounter Plan of Treatment Not on file documented as of this encounter Procedures Procedure Name Priority Date/Time Associated Diagnosis Comments SCAN - LABS 11/23/2018 12:[address] HELPER documented in this encounter Results * SCAN - LABS (11/23/2018 12:[address] HELPER) Narrative 11/23/2018 12:[address] HELPER Ordered by an unspecified provider. Historical Provider Final Res ult documented in this encounter Visit Diagnoses Not on filedocumented in this encounter Care Teams Presales Consultant Relationship Specialty Start Date End Date Solomon Ortiz MD [address] [place] [phone] PCP - General Family Medicine 05/23/19 02/06/21 Tristan Crawford MD [address] [place] [address] PCP - General Emergency Medicine 02/07/21 Migue Arevalo MD [address] [facility] [address] Consulting Physician Cardiology 05/26/19 documented as of this encounter
--- OUTSIDE RECORDS SUMMARY | 2024-12-28 10:57 | XMS_ITS | Encounter Summary ---
Author Organization [facility] Facility Care Team Providers Care Drill Foreman Name Role Phone Solomon Ortiz MD Primary Care Provider [phone] Migue Arevalo MD Unavailable [phone] Tristan Crawford MD Primary Care Provide r Encounter Details Date Type Department Care Team (Latest Contact Info) Description 11/11/2017 Orders Only [facility] CLINCONV ProviderTiburcio MD [address] [place] [address] Social History Tobacco Use Types Packs/Day Years Used Date Smoking Tobacco: Never Assessed Comments Unknown Sex and Gender Information Value Date Recorded Sex Assigned at Not on file Legal Sex Female 8:21 PM REGISTERED PRIVATE DUTY NURSE Gender Identity Not on file Sexual Orientation Not on file documented as of this encounter Plan of Treatment Not on file documented as of this encounter Procedures Procedure Name Priority Date/Time Associated Diagnosis Comments SCAN - LABS 11/12/2017 12:00 AM REGISTERED PRIVATE DUTY NURSE documented in this encounter Results * SCAN - LABS (11/12/2017 12:00 AM REGISTERED PRIVATE DUTY NURSE) Narrative 11/12/2017 12:00 AM REGISTERED PRIVATE DUTY NURSE Ordered by an unspecified provider. Historical Provider Final Res ult documented in this encounter Visit Diagnoses Not on filedocumented in this encounter Care Teams Drill Foreman Relationship Specialty Start Date End Date Solomon Ortiz MD [address] [place] [address] PCP - General Family Medicine 05/23/19 02/06/21 Tristan Crawford MD [address] [place] [address] PCP - General Emergency Medicine 02/07/21 Migue Arevalo MD [address] [address] Consulting Physician Cardiology 05/26/19 documented as of this encounter
--- OUTSIDE RECORDS SUMMARY | 2024-12-28 10:57 | XMS_ITS | Referral Summary ---
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 (Primary Dx); Mixed hyperlipidemia; Primary hypertension; Paroxysmal atrial fibrillation (HCC) from Last 3 Months Allergies No known active allergies Medications glipiZIDE (GLUCOTROL) 10 mg tablet Take 1 tablet (10 mg total) by mouth 2 (two) times a day Active Januvia 50 mg tablet Take 1 tablet (50 mg total) by mouth daily 1 Active aspirin 81 mg enteric coated tablet Take 1 tablet (81 mg total) by mouth daily 30 tablet 1 Active meloxicam (MOBIC) 7.5 mg tablet Take 1 tablet (7.5 mg total) by mouth daily 2 Active anastrozole (ARIMIDEX) 1 mg tablet Take 1 tablet (1 mg total) by mouth daily 3 Active metOLazone (ZAROXOLYN) 2.5 mg tablet Take 1 tablet (2.5 mg total) by mouth 2 (two) times a day 180 tablet 1 4 Active losartan (COZAAR) 25 mg tablet TAKE 1 TABLET(25 MG) BY MOUTH DAILY 90 tablet 1 5 Active metoprolol (LOPRESSOR) 100 mg tablet TAKE 1 TABLET(100 MG) BY MOUTH DAILY 90 tablet 1 5 Active atorvastatin (LIPITOR) 80 mg tablet TAKE 1 TABLET(80 MG) BY MOUTH DAILY 90 tablet 1 5 Active isosorbide mononitrate ER (IMDUR) 30 mg 24 hr tablet TAKE 1 TABLET BY MOUTH DAILY 90 tablet 1 5 Active potassium chloride ER 20 mEq CR tablet TAKE 2 TABLETS BY MOUTH TWICE DAILY 360 tablet 1 5 Active spironolactone (ALDACTONE) 25 mg tablet TAKE 1 TABLET(25 MG) BY MOUTH DAILY 90 tablet 1 5 Active tamoxifen (NOLVADEX) 20 mg tablet Take 1 tablet (20 mg total) by mouth daily 4 Active furosemide (LASIX) 40 mg tablet Take 1 tablet (40 mg total) by mouth daily 90 tablet 3 5 12/23/19 26 Active furosemide (LASIX) 40 mg tablet TAKE 1 AND 1/2 TABLETS(60 MG) BY MOUTH DAILY 135 tablet 1 5 12/23/19 25 Discontinu ed(Other) Active Problems Problem Noted Date Diagnosed Date Preoperative clearance 09/17/2022 Mixed hyperlipidemia 09/17/2021 Hypokalemia 06/08/2020 HTN (hypertension) 10/15/2018 Assessment & Plan (11/23/2019 1:13 PM MOTION STUDY TECHNICIAN): Impression: Stable hypertension. Plan: Continue current antihypertensive regimen as directed by PCP. 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 IFR is abnormal. She had a 4.5 x 12 mm bare metal stent. Cardiac cath also showed a 10-15% irregularity involving the distal LAD. S/P right coronary artery (RCA) stent placement 02/26/2018 Abdominal aortic aneurysm without rupture 2017 Overview (05/27/2019): Followed by Dr. Johnson and underwent repair percutaneously in the mail of 2017 Assessment & Plan (11/23/2019 1:12 PM MOTION STUDY TECHNICIAN): Impression: Patient continues do well status post endovascular repair of her infrarenal AAA. Previous type 2 endoleak has since spontaneously resolved. CTA surveillance revealed interval decrease in wainwright aneurysm sac with no evidence of endoleaks. Plan: Continue ongoing risk factor modifications. Patient follow-up in 1 year for re-evaluation and aortic duplex surveillance of her endovascular AAA repair. Atrial fibrillation 10/30/2017 Overview (05/27/2019): Paroxysmal and maintaining sinus rhythm Diastolic dysfunction 10/30/2017 Resolved Problems Problem Noted Date Diagnosed Date Resolved Date Dyslipidemia 11/26/2018 09/17/2021 Social History Tobacco Use Types Packs/Day Years Used Date Smoking Tobacco: Former Smokeless Tobacco: Never Comments Unknown Sex and Gender Information Value Date Recorded Sex Assigned at Not on file Legal Sex Female 8:21 PM MOTION STUDY TECHNICIAN Gender Identity Not on file Sexual Orientation Not on file Last Filed Vital Signs Vital Sign Reading Time Taken Comments Blood Pressure 102/54 12/22/2024 10:51 AM MOTION STUDY TECHNICIAN Pulse 62 12/22/2024 10:51 AM MOTION STUDY TECHNICIAN Temperature 36.3 C (97.3 F) 03/18/2022 9:38 AM CDT Respiratory Rate - - Oxygen Saturation 94% 12/22/2024 10: 51 AM MOTION STUDY TECHNICIAN Inhaled Oxygen Concentration - - Weight 71.2 kg (156 lb 14.4 oz) 025 10:51 AM MOTION STUDY TECHNICIAN Height 162.6 cm (5' 4 ) 12/22/2024 10:5 1 AM MOTION STUDY TECHNICIAN Body Mass Index 26.93 12/22/2024 10:51 AM MOTION STUDY TECHNICIAN Plan of Treatment Not on file Procedures Procedure Name Priority Date/Time Associated Diagnosis Comments COMPREHENSIVE METABOLIC PANEL Routine 12/15/2024 10:31 AM MOTION STUDY TECHNICIAN Mixed hyperlipidemia LIPID PANEL Routine 12/15/2024 10:31 AM MOTION STUDY TECHNICIAN Mixed hyperlipidemia SCREENING MAMMOGRAM BILATERAL W DARRIN Routine 01/14/2016 9:36 AM CDT from Last 3 Months or Most Recently Relevant to Health Maintenance Results * (ABNORMAL) Lipid panel (12/15/2024 10:31 AM MOTION STUDY TECHNICIAN) Cholesterol 111 <200 mg/dL [facility] HDL 42(L) > OR = 50 mg/dL [facility] Triglycerides 155(H) <150 mg/dL [facility] LDL 46 mg/dL (calc) [facility] Comment: Reference range: <100 Desirable range <100 mg/dL for primary prevention; <70 mg/dL for patients with CHD or diabetic patients with > or = 2 CHD risk factors. LDL-C is now calculated using the Polo calculation, which is a validated novel method providing better accuracy than the Friedewald equation in the estimation of LDL-C. Emeterio SS et al. LAITH. 2013;310(19): 8558-3144 (http://education.sim4tec/faq/TKD190) Chol/HDL ratio 2.6 <5.0 (calc) [facility] Non-HDL, (LDL+VLDL) 69 <130 mg/dL (calc) [facility] Comment: For patients with diabetes plus 1 major ASCVD risk factor, treating to a non-HDL-C goal of <100 mg/dL (LDL-C of <70 mg/dL) is considered a therapeutic option. Blood 12/15/2024 10:3 1 AM MOTION STUDY TECHNICIAN 12/15/2024 10:31 AM MOTION STUDY TECHNICIAN Narrative [facility] - 12/16/2024 5:39 AM MOTION STUDY TECHNICIAN FASTING:YES FASTING: YES us Migue Arevalo MD LAB BLOOD ORDERABLES Final Result [facility] [address] [place] [address] * (ABNORMAL) Comprehensive metabolic panel (12/15/2024 10:31 AM MOTION STUDY TECHNICIAN) Glucose 156(H) 65 - 99 mg/dL Marie [facility] Whitney Comment: Fasting reference interval For someone without known diabetes, a glucose value >125 mg/dL indicates that they may have diabetes and this should be confirmed with a follow-up test. BUN 39(H) 7 - 25 mg/dL Marie FrancoisAlbino Whitney Creatinine 1.36(H) 0.60 - 1.00 mg/dL Marie Francois-Albino Whitney eGFR 40(L) > OR = 60 mL/min/1.7 3m2 Marie Whitney BUN/creat ratio 29(H) 6 - 22 (calc) Marie Whitney Sodium 135 135 - 146 mmol/L Marie FrancoisAlbino Whitney Potassium, pl 3.3(L) 3.5 - 5.3 mmol/L Marie FrancoisAlbino Whitney Chloride 94(L) 98 - 110 mmol/L Marie Whitney CO2 31 20 - 32 mmol/L Marie Francois-Albino Whitney Calcium 9.0 8.6 - 10.4 mg/dL Marie FrancoisAlbino Whitney Protein, sr 6.4 6.1 - 8.1 g/dL Marie FrancoisAlbino Whitney Albumin 4.2 3.6 - 5.1 g/dL Marie FrancoisAlbino Whitney GLOBULIN 2.2 1.9 - 3.7 g/dL (calc) Marie Whitney Alb/glob ratio 1.9 1.0 - 2.5 (calc) Marie FrancoisAlbino Whitney Bilirubin, total 0.9 0.2 - 1.2 mg/dL Marie FrancoisAlbino Wihtney Alk phos 37 37 - 153 U/L Marie FrancoisAlbino Whitney AST 15 10 - 35 U/L Marie FrancoisAlbino Whitney ALT (SGPT) 9 6 - 29 U/L Marie Whitney Blood 12/15/2024 10:3 1 AM MOTION STUDY TECHNICIAN 12/15/2024 10:31 AM MOTION STUDY TECHNICIAN Narrative [facility] - 12/16/2024 5:39 AM MOTION STUDY TECHNICIAN FASTING:YES FASTING: YES us Migue Arevaol MD LAB BLOOD ORDERABLES Final Result [facility] [address] [place] [address] * Screening Mammogram Bilateral W Darrin (01/14/2016 9:36 AM CDT) Anatomical Region Laterality Modality Breast Bilateral Mammography 01/14/2016 9:36 AM CDT Impressions 01/14/2016 11:05 AM CDT BI-RAD 1 NEGATIVE There is no mammographic evidence of malignancy. A 1 year screening mammogram is recommended. The patient has been or will be contacted. The patient will be entered into a reminder system with a target due date of 1 year for her next screening exam. Electronically signed by: Tashi Felix M.D. ab/penrad:01/14/2016 11:04:24 Polls Or Surveys Interviewer: Karly Hernández [facility] letter sent: Normal Exam Reading location: BI-RADS: 1 Negative [EOD] Narrative 01/14/2016 11:05 AM CDT - MG BILATERAL DIGITAL SCREENING MAMMOGRAM 3D/2D WITH CAD WITH MEDIOLATERAL OBLIQUE CRANIOCAUDAL: 01/14/2016 The study was acquired using full field digital technology and interpreted from soft copy. Current study was also evaluated with R2 CAD. 2D digital mammographic views, as well as 3D digital tomosynthesis were performed in the CC and MLO projections. CLINICAL: Routine mammogram. Patient denies any problems. Mother with breast cancer. No personal history of breast cancer. COMPARISONS: Comparison is made to exams dated: 07/20/2013 mammogram - [facility] and 07/02/2011 [facility]. BREAST TISSUE: There are scattered areas of fibroglandular density. FINDINGS: No significant masses, calcifications, or other findings are seen in either breast. There has been no significant interval change. Procedure Note Provider, MD Tiburcio - 03/06/2021 - MG BILATERAL DIGITAL SCREENING MAMMOGRAM 3D/2D WITH CAD WITH MEDIOLATERALOBLIQUE CRANIOCAUDAL: 01/14/2016 The study was acquired using full field digital technology and interpretedfrom soft copy. Current study was also evaluated with R2 CAD. 2D digital mammographic views, as well as 3D digital tomosynthesis were performed in the CC and MLO projections. CLINICAL: Routine mammogram. Patient denies any problems. Mother withbreast cancer. No personal history of breast cancer. COMPARISONS: Comparison is made to exams dated: 07/20/2013 mammogram -[facility] and 07/02/2011 [facility]. BREAST TISSUE: There are scattered areas of fibroglandular density. FINDINGS: No significant masses, calcifications, or other findings areseen in either breast. There has been no significant interval change. IMPRESSION: BI-RAD 1 NEGATIVE There is no mammographic evidence of malignancy. A 1 year screeningmammogram is recommended. The patient has been or will be contacted. The patient will be entered into a reminder system with a target due dateof 1 year for her next screening exam. Electronically signed by: Tashi Felix M.D. ab/penrad:01/14/2016 11:04:24 Polls Or Surveys Interviewer: [facility] letter sent: Normal Exam Reading location: BI-RADS: 1 Negative [EOD] Solomon Ortiz MD IMG MAMMO PROCEDURES Alisa l Result from Last 3 Months or Most Recently Relevant to Health Maintenance Insurance MEDICARE [employer] [facility] MEDICARE [employer] Care Teams Pastry Sous Chef Relationship Specialty Start Date End Date Tristan Crawford MD [address] [place] [address] PCP - General Emergency Medicine 02/07/21 Migue Arevalo MD [address] [place] [address] Consulting Physician Cardiology 05/26/19
--- OUTSIDE RECORDS SUMMARY | 2024-12-28 10:57 | XMS_ITS | Encounter Summary ---
Author Organization [facility] Care Team Providers Care Assistant Operations Manager Name Role Phone Solomon Ortiz MD Primary Care Provider [phone] Migue Arevalo MD Unavailable [phone] Tristan Crawford MD Primary Care Provide r Encounter Details Date Type Department Care Team (Latest Contact Info) Description 11/03/2017 Orders Only [facility] CLINCONV ProviderTiburcio MD [address] [place] [address] Social History Tobacco Use Types Packs/Day Years Used Date Smoking Tobacco: Never Assessed Comments Unknown Sex and Gender Information Value Date Recorded Sex Assigned at Not on file Legal Sex Female 8:21 PM GALLERY ASSISTANT Gender Identity Not on file Sexual Orientation Not on file documented as of this encounter Plan of Treatment Not on file documented as of this encounter Procedures Procedure Name Priority Date/Time Associated Diagnosis Comments SCAN - LABS 11/05/2017 12:00 AM GALLERY ASSISTANT documented in this encounter Results * SCAN - LABS (11/05/2017 12:00 AM GALLERY ASSISTANT) Narrative 11/05/2017 12:00 AM GALLERY ASSISTANT Ordered by an unspecified provider. Historical Provider Final Res ult documented in this encounter Visit Diagnoses Not on filedocumented in this encounter Care Teams Assistant Operations Manager Relationship Specialty Start Date End Date Solomon Ortiz MD [address] [place] [address] PCP - General Family Medicine 05/23/19 02/06/21 Tristan Crawford MD [address] [place] [address] PCP - General Emergency Medicine 02/07/21 Migue Arevalo MD [address] [place] [address] Consulting Physician Cardiology 05/26/19 documented as of this encounter
--- OUTSIDE RECORDS SUMMARY | 2024-12-28 10:57 | XMS_ITS | Encounter Summary ---
Author Organization [facility] Facility Care Team Providers Care Canvas Repairer Name Role Phone Solomon Ortiz MD Primary Care Provider [phone] Migue Arevalo MD Unavailable [phone] Tristan Crawford MD Primary Care Provide r Encounter Details Date Type Department Care Team (Latest Contact Info) Description 09/28/2017 Orders Only MMG CLINCONV ProviderTiburcio MD [address] [place] [address] Social History Tobacco Use Types Packs/Day Years Used Date Smoking Tobacco: Never Assessed Comments Unknown Sex and Gender Information Value Date Recorded Sex Assigned at Not on file Legal Sex Female 8:21 PM DENTURE PROCESSOR Gender Identity Not on file Sexual Orientation Not on file documented as of this encounter Plan of Treatment Not on file documented as of this encounter Procedures Procedure Name Priority Date/Time Associated Diagnosis Comments CARDIOLOGY REPORT 01/28/2018 12: 00 AM CDT documented in this encounter Results * CARDIOLOGY REPORT (01/28/2018 12:00 AM CDT) Anatomical Region Laterality Modality Other Narrative 01/28/2018 12:00 AM CDT Ordered by an unspecified provider. Historical Provider [facility] JD ESPINAL Final Result documented in this encounter Visit Diagnoses Not on filedocumented in this encounter Care Teams Canvas Repairer Relationship Specialty Start Date End Date Solomon Ortiz MD [address] [place] [phone] PCP - General Family Medicine 05/23/19 02/06/21 Tristan Crawford MD [address] [place] [address] PCP - General Emergency Medicine 02/07/21 Migue Arevalo MD [address] [place] [address] Consulting Physician Cardiology 05/26/19 documented as of this encounter
--- OUTSIDE RECORDS SUMMARY | 2024-12-28 10:57 | XMS_ITS | Encounter Summary ---
Author Organization [facility] Facility Care Team Providers Care Under Sheriff Name Role Phone Solomon Ortiz MD Primary Care Provider [phone] Migue Arevalo MD Unavailable [phone] Tristan Crawford MD Primary Care Provide r Encounter Details Date Type Department Care Team (Latest Contact Info) Description 10/07/2018 Orders Only MMG CLINCONV ProviderTiburcio MD [address] [place] [address] Social History Tobacco Use Types Packs/Day Years Used Date Smoking Tobacco: Never Assessed Comments Unknown Sex and Gender Information Value Date Recorded Sex Assigned at Not on file Legal Sex Female 8:21 PM CORING MACHINE OPERATOR Gender Identity Not on file Sexual Orientation Not on file documented as of this encounter Plan of Treatment Not on file documented as of this encounter Procedures Procedure Name Priority Date/Time Associated Diagnosis Comments SCAN - LABS 10/08/2018 12:00 AM CORING MACHINE OPERATOR documented in this encounter Results * SCAN - LABS (10/08/2018 12:00 AM CORING MACHINE OPERATOR) Narrative 10/08/2018 12:00 AM CORING MACHINE OPERATOR Ordered by an unspecified provider. Historical Provider Final Res ult documented in this encounter Visit Diagnoses Not on filedocumented in this encounter Care Teams Under Sheriff Relationship Specialty Start Date End Date Solomon Ortiz MD [address] [place] [phone] PCP - General Family Medicine 05/23/19 02/06/21 Tristan Crawford MD [address] [place] [address] PCP - General Emergency Medicine 02/07/21 Migue Arevalo MD [address] [place] [address] Consulting Physician Cardiology 05/26/19 documented as of this encounter
--- OUTSIDE RECORDS SUMMARY | 2024-12-28 10:57 | XMS_ITS | Encounter Summary ---
Author Organization [facility] Facility Care Team Providers Care Nurse Staff Name Role Phone Solomon Ortiz MD Primary Care Provider [phone] Migue Arevalo MD Unavailable [phone] Tristan Crawford MD Primary Care Provide r Encounter Details Date Type Department Care Team (Latest Contact Info) Description 11/19/2017 Orders Only MMG CLINCONV ProviderTiburcio MD [address] [place] [address] Social History Tobacco Use Types Packs/Day Years Used Date Smoking Tobacco: Never Assessed Comments Unknown Sex and Gender Information Value Date Recorded Sex Assigned at Not on file Legal Sex Female 8:21 PM CABLE WEAVER Gender Identity Not on file Sexual Orientation Not on file documented as of this encounter Plan of Treatment Not on file documented as of this encounter Procedures Procedure Name Priority Date/Time Associated Diagnosis Comments SCAN - LABS 11/27/2017 12:00 AM CABLE WEAVER documented in this encounter Results * SCAN - LABS (11/27/2017 12:00 AM CABLE WEAVER) Narrative 11/27/2017 12:00 AM CABLE WEAVER Ordered by an unspecified provider. Historical Provider Final Res ult documented in this encounter Visit Diagnoses Not on filedocumented in this encounter Care Teams Nurse Staff Relationship Specialty Start Date End Date Solomon Ortiz MD [address] [place] [phone] PCP - General Family Medicine 05/23/19 02/06/21 Tristan Crawford MD [address] [place] [address] PCP - General Emergency Medicine 02/07/21 Migue Arevalo MD [address] [place] [address] Consulting Physician Cardiology 05/26/19 documented as of this encounter
--- OUTSIDE RECORDS SUMMARY | 2024-12-28 10:58 | XMS_ITS | Encounter Summary ---
Author Organization [facility] Care Team Providers Care Customer Service Trainer Name Role Phone Solomon Ortiz MD Primary Care Provider [phone] Migue Arevalo MD Unavailable [phone] Tristan Crawford MD Primary Care Provide r Encounter Details Date Type Department Care Team (Latest Contact Info) Description 03/01/2018 Orders Only [facility]G CLINCONV ProviderTiburcio MD [address] [place] [address] Social History Tobacco Use Types Packs/Day Years Used Date Smoking Tobacco: Never Assessed Comments Unknown Sex and Gender Information Value Date Recorded Sex Assigned at Not on file Legal Sex Female 8:21 PM CYBER SECURITY ANALYST Gender Identity Not on file Sexual Orientation Not on file documented as of this encounter Plan of Treatment Not on file documented as of this encounter Procedures Procedure Name Priority Date/Time Associated Diagnosis Comments PROCEDURE - RESULT 02/22/2018 12 :00 AM CDT documented in this encounter Results * PROCEDURE - RESULT (02/22/2018 12:00 AM CDT) Narrative 02/22/2018 12:00 AM CDT Ordered by an unspecified provider. Historical Provider Final Res ult documented in this encounter Visit Diagnoses Not on filedocumented in this encounter Care Teams Customer Service Trainer Relationship Specialty Start Date End Date Solomon Ortiz MD [address] [place] [address] PCP - General Family Medicine 05/23/19 02/06/21 Tristan Crawford MD [address] [place] [address] PCP - General Emergency Medicine 02/07/21 Migue Arevalo MD [address] [place] [address] Consulting Physician Cardiology 05/26/19 documented as of this encounter
--- OUTSIDE RECORDS SUMMARY | 2024-12-28 10:58 | XMS_ITS | Clinical Summary ---
Author Organization [facility] Address [address] [place] [address] Care Team Providers Care Work Order Sorting Clerk Name Role Phone Migue Arevalo MD Unavailable [phone] Trisatn Crawford MD Primary Care Provide r Allergies No known active allergies Medications glipiZIDE [...] 10/15/2018 Assessment & Plan (11/23/2019 1:13 PM HOME SERVICE DEMONSTRATOR): Impression: Stable hypertension. Plan: Continue current antihypertensive regimen as directed by PCP. 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 Previous type 2 endoleak has since spontaneously resolved. CTA surveillance revealed interval decrease in kaibab aneurysm sac with no evidence of endoleaks. Plan: Continue ongoing risk factor modifications. Patient follow-up in 1 year for re-evaluation and aortic duplex surveillance of her endovascular AAA repair. Atrial fibrillation 10/30/2017 Overview (05/27/2019): Paroxysmal and maintaining sinus rhythm Diastolic dysfunction 10/30/2017 Resolved Problems Problem Noted Date Diagnosed Date Resolved Date Dyslipidemia 11/26/2018 09/17/2021 Encounters Date Type Department Care Team Description 12/22/2024 10:30 AM HOME SERVICE DEMONSTRATOR Office Visit [facility] Card[facility] [address] [facility] [address] [address] Migue Arevalo MD Atherosclerosis of kaibab coronary artery of kaibab heart without angina pectoris (Primary Dx); Mixed hyperlipidemia; Primary hypertension; Paroxysmal atrial fibrillation (HCC) from Last 3 Months Medical History Medical History Date Comments CHF (congestive heart failure) (HCC) CAD (coronary artery disease) A-fib (HCC) Edema Hyperlipidemia Hypertension Family History Relation Name Status Comments Father Mother Social History Tobacco Use Types Packs/Day Years Used Date Smoking Tobacco: Former Smokeless Tobacco: Never Comments Unknown Sex and Gender Information Value Date Recorded Sex Assigned at Not on file Legal Sex Female 8:21 PM HOME SERVICE DEMONSTRATOR Gender Identity Not on file Sexual Orientation Not on file Obstetrics History Last Filed Vital Signs Vital Sign Reading Time Taken Comments Blood Pressure 102/54 12/22/2024 10:51 AM HOME SERVICE DEMONSTRATOR Pulse 62 12/22/2024 10:51 AM HOME SERVICE DEMONSTRATOR Temperature 36.3 C (97.3 F) 03/18/2022 9:38 AM CDT Respiratory Rate - - Oxygen Saturation 94% 12/22/2024 10: 51 AM HOME SERVICE DEMONSTRATOR Inhaled Oxygen Concentration - - Weight 71.2 kg (156 lb 14.4 oz) 025 10:51 AM HOME SERVICE DEMONSTRATOR Height 162.6 cm (5' 4 ) 12/22/2024 10:5 1 AM HOME SERVICE DEMONSTRATOR Body Mass Index 26.93 12/22/2024 10:51 AM HOME SERVICE DEMONSTRATOR Plan of Treatment Health Maintenance Due Date Last Done Comments Depression Screening 1945 Fall Risk Assessment 1945 Hepatitis C Screening 1945 Osteoporosis Screening-Bone Density Scan 1945 DTaP/Tdap/Td Vaccine (1 - Tdap) 1958 Hepatitis B Screening 1965 Pneumococcal vaccine 65+ (1 of 2 - PCV) 1966 Zoster Vaccine (1 of 2) 1966 Well Visit 65+ 2012 Influenza Vaccine (#1) 2024 07/11/2020, 2016 Breast Cancer Screening-Mammogram Discontinued 016, 07/20/2013 Procedures Procedure Name Priority Date/Time Associated Diagnosis Comments COMPREHENSIVE METABOLIC PANEL Routine 12/15/2024 10:31 AM HOME SERVICE DEMONSTRATOR Mixed hyperlipidemia LIPID PANEL Routine 12/15/2024 10:31 AM HOME SERVICE DEMONSTRATOR Mixed hyperlipidemia SCREENING MAMMOGRAM BILATERAL W DARRIN Routine 01/14/2016 9:36 AM CDT from Last 3 Months or Most Recently Relevant to Health Maintenance Results * (ABNORMAL) Lipid panel (12/15/2024 10:31 AM HOME SERVICE DEMONSTRATOR) Cholesterol 111 <200 mg/dL [facility] HDL 42(L) > OR = 50 mg/dL [facility] Triglycerides 155(H) <150 mg/dL [facility] LDL 46 mg/dL (calc) [facility] Comment: Reference range: <100 Desirable range <100 mg/dL for primary prevention; <70 mg/dL for patients with CHD or diabetic patients with > or = 2 CHD risk factors. LDL-C is now calculated using the Emeterio-Devon calculation, which is a validated novel method providing better accuracy than the Friedewald equation in the estimation of LDL-C. Emeterio MCFARLANE et al. LAITH. 2013;310(19): 8722-0007 (http://education.Carnet de Mode.Same Day Serves/faq/WNR372) Chol/HDL ratio 2.6 <5.0 (calc) [facility] Non-HDL, (LDL+VLDL) 69 <130 mg/dL (calc) Marie [facility] Comment: For patients with diabetes plus 1 major ASCVD risk factor, treating to a non-HDL-C goal of <100 mg/dL (LDL-C of <70 mg/dL) is considered a therapeutic option. Blood 12/15/2024 10:3 1 AM HOME SERVICE DEMONSTRATOR 12/15/2024 10:31 AM HOME SERVICE DEMONSTRATOR Narrative [facility] - 12/16/2024 5:39 AM HOME SERVICE DEMONSTRATOR FASTING:YES FASTING: YES Migue Arevalo MD LAB BLOOD ORDERABLES Final Result [facility] [address] [place] [address] * (ABNORMAL) Comprehensive metabolic panel (12/15/2024 10:31 AM HOME SERVICE DEMONSTRATOR) Glucose 156(H) 65 - 99 mg/dL [facility] Comment: Fasting reference interval For someone without known diabetes, a glucose value >125 mg/dL indicates that they may have diabetes and this should be confirmed with a follow-up test. BUN 39(H) 7 - 25 mg/dL [facility] Creatinine 1.36(H) 0.60 - 1.00 mg/dL [facility] eGFR 40(L) > OR = 60 mL/min/1.7 3m2 [facility] BUN/creat ratio 29(H) 6 - 22 (calc) [facility] Sodium 135 135 - 146 mmol/L [facility] Potassium, pl 3.3(L) 3.5 - 5.3 mmol/L [facility] Chloride 94(L) 98 - 110 mmol/L [facility] CO2 31 20 - 32 mmol/L [facility] Calcium 9.0 8.6 - 10.4 mg/dL [facility] Protein, sr 6.4 6.1 - 8.1 g/dL [facility] Albumin 4.2 3.6 - 5.1 g/dL [facility] GLOBULIN 2.2 1.9 - 3.7 g/dL (calc) [facility] Alb/glob ratio 1.9 1.0 - 2.5 (calc) [facility] Bilirubin, total 0.9 0.2 - 1.2 mg/dL [facility] Alk phos 37 37 - 153 U/L [facility] AST 15 10 - 35 U/L [facility] ALT (SGPT) 9 6 - 29 U/L [facility] Blood 12/15/2024 10:3 1 AM HOME SERVICE DEMONSTRATOR 12/15/2024 10:31 AM HOME SERVICE DEMONSTRATOR Narrative [facility] - 12/16/2024 5:39 AM HOME SERVICE DEMONSTRATOR FASTING:YES FASTING: YES us Migue Arevalo MD LAB BLOOD ORDERABLES Final Result [facility] [address] [place] [address] * Screening Mammogram Bilateral W Darrin (01/14/2016 [...] next screening exam. Electronically signed by: Tashi aguirre/jeet:01/14/2016 11:04:24 Freezer Operator: Saturnino Celment Mammography letter sent: Normal Exam Reading location: [...] made to exams dated: 07/20/2013 mammogram - [facility] and 07/02/2011 [facility]. BREAST TISSUE: There are scattered areas of [...] is made to exams dated: 07/20/2013 mammogram -[facility] and 07/02/2011 [facility]. BREAST TISSUE: There are scattered areas of [...] next screening exam. Electronically signed by: Tashi aguirre/jeet:01/14/2016 11:04:24 Freezer Operator: Saturnino Clement Mammography letter sent: Normal Exam Reading location: BI-RADS: 1 Negative [EOD] Solomon Ortiz MD IM MAMMO PROCEDURES Alisa l Result from Last 3 Months or Most Recently Relevant to Health Maintenance Insurance MEDICARE [employer] Member Subscriber Plan / Payer (Ef fective 2012-Present) Name:Amarilys Garvin Relation to Subscriber:Self Name:Amarilys Garvin Payer ID:[id number] Group ID:Not on file Type:COMMERCIAL Address: [address] [place], [place] MEDICARE RAILROAD Member Subscriber Plan / Payer (Ef fective 2012-Present) Name:Amarilys Garvin Member ID:[id number] Relation to Subscriber:Self Name:Amarilys Garvin Subscriber ID:[id number] Payer ID:[id number] Group ID:Not on file Type:MEDICARE TRADITIONAL Address: [place] [id number] [employer] Member Subscriber Plan / Payer (Ef fective 2012-Present) Name:Amarilys Garvin Relation to Subscriber:Self Name:Amarilys Garvin Payer ID:[id number] Group ID:Not on file Type:COMMERCIAL Address: [address] [place], [place] Care Teams Work Order Sorting Clerk Relationship Specialty Start Date End Date Tristan Crawford MD [address] [place] [address] PCP - General Emergency Medicine 02/07/21 Migue Arevalo MD [address] [place] [address] Consulting Physician Cardiology 05/26/19
--- OUTSIDE RECORDS SUMMARY | 2024-12-28 10:58 | XMS_ITS | Encounter Summary ---
Author Organization [facility] Facility Care Team Providers Care Limb Driver Name Role Phone Solomon Ortiz MD Primary Care Provider [phone] Migue Arevalo MD Unavailable [phone] Tristan Crawford MD Primary Care Provide r Encounter Details Date Type Department Care Team (Latest Contact Info) Description 02/09/2018 Orders Only [facility] CLINCONV ProviderTiburcio MD [address] [place] [address] Social History Tobacco Use Types Packs/Day Years Used Date Smoking Tobacco: Never Assessed Comments Unknown Sex and Gender Information Value Date Recorded Sex Assigned at Not on file Legal Sex Female 8:21 PM QUALITY CONTROL MICROBIOLOGIST Gender Identity Not on file Sexual Orientation Not on file documented as of this encounter Plan of Treatment Not on file documented as of this encounter Procedures Procedure Name Priority Date/Time Associated Diagnosis Comments CARDIOLOGY REPORT 02/25/2018 12: 00 AM CDT CARDIOLOGY REPORT 02/25/2018 12: 00 AM CDT CARDIOLOGY REPORT 02/25/2018 12: 00 AM CDT documented in this encounter Results * CARDIOLOGY REPORT (02/25/2018 12:00 AM CDT) Anatomical Region Laterality Modality Other Narrative 02/25/2018 12:00 AM CDT Ordered by an unspecified provider. Historical Provider [facility] JD ESPINAL Final Result * CARDIOLOGY REPORT (02/25/2018 12:00 AM CDT) Anatomical Region Laterality Modality Other Narrative 02/25/2018 12:00 AM CDT Ordered by an unspecified provider. us Historical Provider [facility] CARDIAC SERVICES PROCE DURES Final Result * CARDIOLOGY REPORT (02/25/2018 12:00 AM CDT) Anatomical Region Laterality Modality Other Narrative 02/25/2018 12:00 AM CDT Ordered by an unspecified provider. Historical Provider [facility] CARDIAC SERVICES PROCE DURES Final Result documented in this encounter Visit Diagnoses Not on filedocumented in this encounter Care Teams Limb Driver Relationship Specialty Start Date End Date Solomon Ortiz MD [address] [place] [address] PCP - General Family Medicine 05/23/19 02/06/21 Tristan Crawford MD [address] [facility] [place] [address] PCP - General Emergency Medicine 02/07/21 Migue Arevalo MD [address] [facility] [place] [address] Consulting Physician Cardiology 05/26/19 documented as of this encounter
--- OUTSIDE RECORDS SUMMARY | 2024-12-28 10:58 | XMS_ITS | Encounter Summary ---
Author Organization [facility] Facility Care Team Providers Care Clin Tech Name Role Phone Solomon Ortiz MD Primary Care Provider [phone] Migue Arevalo MD Unavailable [phone] Tristan Crawford MD Primary Care Provide r Encounter Details Date Type Department Care Team (Latest Contact Info) Description 02/11/2018 Orders Only [facility] CLINCONV ProviderTiburcio MD [address] [place] [address] Social History Tobacco Use Types Packs/Day Years Used Date Smoking Tobacco: Never Assessed Comments Unknown Sex and Gender Information Value Date Recorded Sex Assigned at Not on file Legal Sex Female 8:21 PM LOTTERY OFFICE MANAGER Gender Identity Not on file Sexual Orientation Not on file documented as of this encounter Plan of Treatment Not on file documented as of this encounter Procedures Procedure Name Priority Date/Time Associated Diagnosis Comments PROCEDURE - RESULT 02/12/2018 12 :00 AM CDT documented in this encounter Results * PROCEDURE - RESULT (02/12/2018 12:00 AM CDT) Narrative 02/12/2018 12:00 AM CDT Ordered by an unspecified provider. Historical Provider Final Res ult documented in this encounter Visit Diagnoses Not on filedocumented in this encounter Care Teams Clin Tech Relationship Specialty Start Date End Date Solomon Ortiz MD [address] [place] [address] PCP - General Family Medicine 05/23/19 02/06/21 Tristan Crawford MD [address] [place] [address] PCP - General Emergency Medicine 02/07/21 Migue Arevalo MD [address] [facility] [place] [address] Consulting Physician Cardiology 05/26/19 documented as of this encounter
--- OUTSIDE RECORDS SUMMARY | 2024-12-28 10:58 | XMS_ITS | Encounter Summary ---
Author Organization [facility] Care Team Providers Care Hot Dip Galvanizer Name Role Phone Solomon Ortiz MD Primary Care Provider [phone] Migue Arevalo MD Unavailable [phone] Tristan Crawford MD Primary Care Provide r Encounter Details Date Type Department Care Team (Latest Contact Info) Description 09/16/2018 Orders Only [facility] CLINCONV ProviderTiburcio MD [address] [place] [address] Social History Tobacco Use Types Packs/Day Years Used Date Smoking Tobacco: Never Assessed Comments Unknown Sex and Gender Information Value Date Recorded Sex Assigned at Not on file Legal Sex Female 8:21 PM DOBBY LOOMS PEGGER Gender Identity Not on file Sexual Orientation Not on file documented as of this encounter Plan of Treatment Not on file documented as of this encounter Procedures Procedure Name Priority Date/Time Associated Diagnosis Comments SCAN - LABS 09/20/2018 12:00 AM DOBBY LOOMS PEGGER SCAN - LABS 09/17/2018 12:00 AM DOBBY LOOMS PEGGER documented in this encounter Results * SCAN - LABS (09/20/2018 12:00 AM DOBBY LOOMS PEGGER) Narrative 09/20/2018 12:00 AM DOBBY LOOMS PEGGER Ordered by an unspecified provider. Historical Provider Final Res ult * SCAN - LABS (09/17/2018 12:00 AM DOBBY LOOMS PEGGER) Narrative 09/17/2018 12:00 AM DOBBY LOOMS PEGGER Ordered by an unspecified provider. Historical Provider Final Res ult documented in this encounter Visit Diagnoses Not on filedocumented in this encounter Care Teams Hot Dip Galvanizer Relationship Specialty Start Date End Date Solomon Ortiz MD [address] [place] [address] PCP - General Family Medicine 05/23/19 02/06/21 Tristan Crawford MD [address] [facility] [place] [address] PCP - General Emergency Medicine 02/07/21 Migue Arevalo MD [address] [facility] [place] [address] Consulting Physician Cardiology 05/26/19 documented as of this encounter
[2024-12-28 11:11] LABS: Alanine Aminotransferase 15 U/L (6-35); Alkaline Phosphatase 44 U/L (38-126); Anion Gap 12 mmol/L (4-12); Aspartate Amino Transferase 18 U/L (14-36); Bilirubin,Total 0.8 mg/dL (0.2-1.3); Blood Urea Nitrogen 36 mg/dL (7-17); Calcium 8.6 mg/dL (8.4-10.2); Carbon Dioxide 26 mmol/L (22-30); Chloride 95 mmol/L (98-107); Estimated Glomerular Filt Rate 43; Glucose 234 mg/dL (65-110); Potassium 3.7 mmol/L (3.4-5.0); Sodium 133 mmol/L (137-145)
[2024-12-30 01:29] LABS: CA 15-3 17 U/mL (<32)
== END 2024-12-28 09:57 | disposition home or self-care (01) ==
LOC: ANHLAB 09:57
PROVIDERS: PCP Emergency Medicine; Visit Provider Internal Medicine Hematology & Oncology
DX: C50.911 Malignant neoplasm of unspecified site of right female breast (principal); Z17.0 Estrogen receptor positive status [ER+]
CPT/HCPCS: 36415; 80053; 85025; 86300

== ENCOUNTER 2025-02-15 14:22 | Outpatient (CLI) | payer MEDICARE, OTHER, SELFPAY ==
--- NOTE | ~2025-02-15 | MM_ITS ---
EXAMINATION: MM screening [facility] BI w ernesto HISTORY: Screening TECHNIQUE: Craniocaudal and mediolateral oblique 3-D tomosynthesis images were obtained and synthetic 2-D images were generated. CAD analysis was submitted and interpreted. COMPARISON: Comparison to multiple prior studies sequentially, with oldest reviewed study dated 07/19. BREAST PARENCHYMAL COMPOSITION: Not dense: There are scattered areas of fibroglandular density. FINDINGS: There is postsurgical distortion in the upper outer quadrant of the right breast. No new ma sses, calcifications or architectural distortion are identified in the right breast to suggest malign leonid. There is new focal asymmetry posterior to the nipple, middle third, on CC view. IMPRESSION: 1. New left breast asymmetry. 2. Additional mammographic views and possible breast ultrasound are recommended. BI-RADS Category 0: Incomplete: Needs additional imaging evaluation. Reviewed, dictated and finalized at location A. IMPRESSION: 1. New left breast asymmetry. 2. Additional mammographic views and possible breast ultrasound are recommended . BI-RADS Category 0: Incomplete: Needs additional imaging evaluation.
--- OUTSIDE RECORDS SUMMARY | 2025-02-15 15:29 | XMS_ITS | Encounter Summary ---
Author Organization [facility] Care Team Providers Care Computer Science Intern Name Role Phone Solomon Ortiz MD Primary Care Provider [phone] Migue Arevalo MD Unavailable [phone] Tristan Crawford MD Primary Care Provide r Encounter Details Date Type Department Care Team (Latest Contact Info) Description 10/07/2018 Orders Only [facility] CLINCONV ProviderTiburcio MD [address] [place] [address] Social History Tobacco Use Types Packs/Day Years Used Date Smoking Tobacco: Never Assessed Comments Unknown Sex and Gender Information Value Date Recorded Sex Assigned at Not on file Legal Sex Female 8:21 PM CHILD SPECIALIST Gender Identity Not on file Sexual Orientation Not on file documented as of this encounter Plan of Treatment Not on file documented as of this encounter Procedures Procedure Name Priority Date/Time Associated Diagnosis Comments SCAN - LABS 10/08/2018 12:00 AM CHILD SPECIALIST documented in this encounter Results * SCAN - LABS (10/08/2018 12:00 AM CHILD SPECIALIST) Narrative 10/08/2018 12:00 AM CHILD SPECIALIST Ordered by an unspecified provider. Historical Provider Final Res ult documented in this encounter Visit Diagnoses Not on filedocumented in this encounter Care Teams Computer Science Intern Relationship Specialty Start Date End Date Solomon Ortiz MD [address] [place] [address] PCP - General Family Medicine 05/23/19 02/06/21 Tristan Crawford MD [address] [place] [address] PCP - General Emergency Medicine 02/07/21 Migue Arevalo MD [address] [facility] [place] [address] Consulting Physician Cardiology 05/26/19 documented as of this encounter
--- OUTSIDE RECORDS SUMMARY | 2025-02-15 15:29 | XMS_ITS | Encounter Summary ---
Author Organization [facility] Facility Care Team Providers Care Pharmacist In Charge Owner Name Role Phone Solomon Ortiz MD Primary Care Provider [phone] Migue Arevalo MD Unavailable [phone] Tristan Crawford MD Primary Care Provide r Encounter Details Date Type Department Care Team (Latest Contact Info) Description 11/22/2018 Orders Only [facility] CLINCONV ProviderTiburcio MD [address] [place] [address] Social History Tobacco Use Types Packs/Day Years Used Date Smoking Tobacco: Never Assessed Comments Unknown Sex and Gender Information Value Date Recorded Sex Assigned at Not on file Legal Sex Female 8:21 PM BAKED AND GRAPHITE INSPECTOR Gender Identity Not on file Sexual Orientation Not on file documented as of this encounter Plan of Treatment Not on file documented as of this encounter Procedures Procedure Name Priority Date/Time Associated Diagnosis Comments SCAN - LABS 11/23/2018 12:00 AM BAKED AND GRAPHITE INSPECTOR documented in this encounter Results * SCAN - LABS (11/23/2018 12:00 AM BAKED AND GRAPHITE INSPECTOR) Narrative 11/23/2018 12:00 AM BAKED AND GRAPHITE INSPECTOR Ordered by an unspecified provider. Historical Provider Final Res ult documented in this encounter Visit Diagnoses Not on filedocumented in this encounter Care Teams Pharmacist In Charge Owner Relationship Specialty Start Date End Date Solomon Ortiz MD [address] [place] [id number] PCP - General Family Medicine 05/23/19 02/06/21 Tristan Crawford MD [address] [place] [address] PCP - General Emergency Medicine 02/07/21 Migue Arevalo MD [address] [facility] [place] [address] Consulting Physician Cardiology 05/26/19 documented as of this encounter
--- OUTSIDE RECORDS SUMMARY | 2025-02-15 15:29 | XMS_ITS | Encounter Summary ---
Author Organization [facility] Facility Care Team Providers Care Consultant Teacher Name Role Phone Solomon Ortiz MD Primary Care Provider [phone] Migue Arevalo MD Unavailable [phone] Tristan Crawford MD Primary Care Provide r Encounter Details Date Type Department Care Team (Latest Contact Info) Description 11/03/2017 Orders Only [facility] CLINCONV ProviderTiburcio MD [address] [place] [address] Social History Tobacco Use Types Packs/Day Years Used Date Smoking Tobacco: Never Assessed Comments Unknown Sex and Gender Information Value Date Recorded Sex Assigned at Not on file Legal Sex Female 8:21 PM PORT CRANE OPERATOR Gender Identity Not on file Sexual Orientation Not on file documented as of this encounter Plan of Treatment Not on file documented as of this encounter Procedures Procedure Name Priority Date/Time Associated Diagnosis Comments SCAN - LABS 11/05/2017 12:00 AM PORT CRANE OPERATOR documented in this encounter Results * SCAN - LABS (11/05/2017 12:00 AM PORT CRANE OPERATOR) Narrative 11/05/2017 12:00 AM PORT CRANE OPERATOR Ordered by an unspecified provider. Historical Provider Final Res ult documented in this encounter Visit Diagnoses Not on filedocumented in this encounter Care Teams Consultant Teacher Relationship Specialty Start Date End Date Solomon Ortiz MD [address] [place] [address] PCP - General Family Medicine 05/23/19 02/06/21 Tristan Crawford MD [address] [place] [address] PCP - General Emergency Medicine 02/07/21 Migue Arevalo MD [address] [facility] [place] [address] Consulting Physician Cardiology 05/26/19 documented as of this encounter
--- OUTSIDE RECORDS SUMMARY | 2025-02-15 15:29 | XMS_ITS | Clinical Summary ---
Author Organization [facility] Hermes mitchell Formerly [facility] Address [address] [place] [address] Care Team Providers Care Powder Mill Operator Name Role Phone Tristan Crawford MD Primary Care Provider [phone] Allergies No known active allergies Medications atorvastatin [...] MG) BY MOUTH DAILY 90 Tablet 3 4 Active Active Problems No known active problems Encounters Date Type Department Care Team Description 01/04/2025 11:30 AM CDT Office Visit [facility] [address] [place] [address] Panda Busby MD Malignant neoplasm of right breast in female, estrogen receptor positive, unspecified site of breast (CMS/HCC) (Primary Dx) 12/29/2024 Orders Only [facility] [address] [place] [address] Panda Busby MD 12/28/2024 Orders Only [facility] [address] [place] [address] Panda Busby MD 12/07/2024 External Device Data STL ABSTRACTION Provider, [...] on file Legal Sex Female 9:20 AM MACHINIST 2ND SHIFT Gender Identity Not on file Sexual Orientation Not on file Last Filed Vital Signs Vital Sign Reading Time Taken Comments Blood Pressure 125/69 01/04/2025 11:28 AM CDT Pulse 51 01/04/2025 11:28 AM CDT Temperature 36.8 C (98.2 F) 01/04/2025 11:28 AM CDT Respiratory Rate 15 01/04/2025 11:28 AM CDT Oxygen Saturation 94% 01/04/2025 11:28 AM CDT Inhaled Oxygen Concentration - - Weight 70.1 kg (154 lb 9.6 oz) 01/04/2025 11:28 AM CDT Height 162.6 cm (5' 4 ) 11/04/2022 3:02 PM MACHINIST 2ND SHIFT Body Mass Index 26.54 11/04/2022 3:02 PM MACHINIST 2ND SHIFT Plan of Treatment Upcoming Encounters Date Type Department Care Team (Late st Contact Info) Description 05/12/2025 11:00 AM CDT Office Visit [facility] - [facility] [address] [facility] [address] [place] [address] Panda Busby MD [address] [facility] [address] [place] [address] Health Maintenance Due Date Last Done Comments DTAP/TDAP/TD VACCINES (1 - Tdap) 1966 PNEUMOCOCCAL VACCINE 50+ YEARS (1 of 2 - PCV) 04/25/19 66 ZOSTER VACCINE (1 of 2) 1997 RSV VACCINE (60+ or ) (1 - 1-dose 75+ series) 2022 INFLUENZA VACCINE (#1) 2024 OSTEOPOROSIS SCREENING 03/10/2028 03/10/2023 Procedures Procedure Name Priority Date/Time Associated Diagnosis Comments CBC WITH DIFFERENTIAL Routine 12/28/2024 3:58 PM CDT COMPREHENSIVE METABOLIC PANEL Routine 12/28/2024 2:14 PM CDT from Last 3 Months Results * CBC WITH DIFFERENTIAL (12/28/2024 3:58 PM CDT) Blood us Panda Busby MD HEMATOLOGY ORDERABLES Final Res ult * COMPREHENSIVE METABOLIC PANEL (12/28/2024 2:14 PM CDT) Blood us Panda Busby MD CHEMISTRY ORDERABLES Final Resu lt from Last 3 Months Insurance MEDICARE [facility] [facility] Care Teams Powder Mill Operator Relationship Specialty Start Date End Date Tristan Crawford MD [address] [place] [id number] PCP - General Internal Medicine 10/31/22
--- OUTSIDE RECORDS SUMMARY | 2025-02-15 15:29 | XMS_ITS | Encounter Summary ---
Author Organization [facility] Facility Care Team Providers Care Prawn Trawler Hand Name Role Phone Solomon Ortiz MD Primary Care Provider [phone] Migue Arevalo MD Unavailable [phone] Tristan Crawford MD Primary Care Provide r Encounter Details Date Type Department Care Team (Latest Contact Info) Description 03/01/2018 Orders Only [facility] CLINCONV ProviderTiburcio MD [address] [place] [address] Social History Tobacco Use Types Packs/Day Years Used Date Smoking Tobacco: Never Assessed Comments Unknown Sex and Gender Information Value Date Recorded Sex Assigned at Not on file Legal Sex Female 8:21 PM SOCIAL WORK THERAPIST Gender Identity Not on file Sexual Orientation [...] on filedocumented in this encounter Care Teams Prawn Trawler Hand Relationship Specialty Start Date End Date Solomon Ortiz MD [address] [place] [address] PCP - General Family Medicine 05/23/19 02/06/21 Tristan Crawford MD [address] [place] [address] PCP - General Emergency Medicine 02/07/21 Migue Arevalo MD [address] [place] [address] Consulting Physician Cardiology 05/26/19 documented as of this encounter
--- OUTSIDE RECORDS SUMMARY | 2025-02-15 15:29 | XMS_ITS | Clinical Summary ---
Author Organization [facility] Address [address] [place] [address] Care Team Providers Care Head Of Drama Name Role Phone Migue Arevalo MD Unavailable [phone] Tristan Crawford MD Primary Care Provide r Allergies No known active allergies Medications glipiZIDE (GLUCOTROL) 10 mg tablet Take 1 tablet (10 mg total) by mouth 2 (two) times a day Active Januvia 50 mg tablet Take 1 tablet (50 mg total) by mouth daily 07/16/2021 Active aspirin 81 mg enteric coated tablet Take 1 tablet (81 mg total) by mouth daily 30 tablet 09/17/2021 Active meloxicam (MOBIC) 7.5 mg tablet Take 1 tablet (7.5 mg total) by mouth daily 07/07/2022 Active anastrozole (ARIMIDEX) 1 mg tablet Take 1 tablet (1 mg total) by mouth daily 01/14/2023 Active metOLazone (ZAROXOLYN) 2.5 mg tablet Take 1 tablet (2.5 mg total) by mouth 2 (two) times a day 180 tablet 1 06/23/2024 Active losartan (COZAAR) 25 mg tablet TAKE 1 TABLET(25 MG) BY MOUTH DAILY 90 tablet 1 10/26/2024 Active metoprolol (LOPRESSOR) 100 mg tablet TAKE 1 TABLET(100 MG) BY MOUTH DAILY 90 tablet 1 10/27/2024 Active atorvastatin (LIPITOR) 80 mg tablet TAKE 1 TABLET(80 MG) BY MOUTH DAILY 90 tablet 1 10/27/2024 Active isosorbide mononitrate ER (IMDUR) 30 mg 24 hr tablet TAKE 1 TABLET BY MOUTH DAILY 90 tablet 1 10/28/2024 Active potassium chloride ER 20 mEq CR tablet TAKE 2 TABLETS BY MOUTH TWICE DAILY 360 tablet 1 11/17/2024 Active spironolactone (ALDACTONE) 25 mg tablet TAKE 1 TABLET(25 MG) BY MOUTH DAILY 90 tablet 1 11/17/2024 Active tamoxifen (NOLVADEX) 20 mg tablet Take 1 tablet (20 mg total) by mouth daily 10/09/2024 Active furosemide (LASIX) 40 mg tablet Take 1 tablet (40 mg total) by mouth daily 90 tablet 3 12/22/2024 12/23/19 26 Active Active Problems Problem Noted Date Diagnosed Date Preoperative clearance 09/17/2022 Mixed hyperlipidemia 09/17/2021 Hypokalemia 06/08/2020 HTN (hypertension) 10/15/2018 Assessment & Plan (11/23/2019 1:13 PM INSTRUMENT CHECKER): Impression: Stable hypertension. Plan: Continue current antihypertensive regimen as directed by PCP. 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 Previous type 2 endoleak has since spontaneously resolved. CTA surveillance revealed interval decrease in [place] aneurysm sac with no evidence of endoleaks. Plan: Continue ongoing risk factor modifications. Patient follow-up in 1 year for re-evaluation and aortic duplex surveillance of her endovascular AAA repair. Atrial fibrillation 10/30/2017 Overview (05/27/2019): Paroxysmal and maintaining sinus rhythm Diastolic dysfunction 10/30/2017 Resolved Problems Problem Noted Date Diagnosed Date Resolved Date Dyslipidemia 11/26/2018 09/17/2021 Encounters Date Type Department Care Team Description 01/16/2025 Results Follow-Up [facility] [address] [place] [address] [address] Vivian Gilman RN 12/22/2024 10:30 AM INSTRUMENT CHECKER Office Visit [facility] [address] [place] [address] [address] Migue Arevalo MD Atherosclerosis of [place] coronary artery of [place] heart without angina pectoris (Primary Dx); Mixed [...] on file Legal Sex Female 8:21 PM INSTRUMENT CHECKER Gender Identity Not on file Sexual Orientation Not on file Obstetrics History Last Filed Vital Signs Vital Sign Reading Time Taken Comments Blood Pressure 102/54 12/22/2024 10:51 AM INSTRUMENT CHECKER Pulse 62 12/22/2024 10:51 AM INSTRUMENT CHECKER Temperature 36.3 C (97.3 F) 03/18/2022 9:38 AM CDT Respiratory Rate - - Oxygen Saturation 94% 12/22/2024 10: 51 AM INSTRUMENT CHECKER Inhaled Oxygen Concentration - - Weight 71.2 kg (156 lb 14.4 oz) 025 10:51 AM INSTRUMENT CHECKER Height 162.6 cm (5' 4 ) 12/22/2024 10:5 1 AM INSTRUMENT CHECKER Body Mass Index 26.93 12/22/2024 10:51 AM INSTRUMENT CHECKER Plan of Treatment Health Maintenance Due Date Last Done Comments Depression Screening 1945 Fall Risk Assessment 1945 Hepatitis C Screening 1945 Osteoporosis Screening-Bone Density Scan 1945 DTaP/Tdap/Td Vaccine (1 - Tdap) 1958 Hepatitis B Screening 1965 Pneumococcal vaccine 65+ (1 of 2 - PCV) 1966 Zoster Vaccine (1 of 2) 1966 Well Visit 65+ 2012 Influenza Vaccine (Season Ended) 2025 07/11/20 20, 09/29/2017 Breast Cancer Screening-Mammogram Discontinued 016, 07/20/2013 Procedures Procedure Name Priority Date/Time Associated Diagnosis Comments BASIC METABOLIC PANEL Routine 01/13/2025 10:57 AM CDT Atherosclerosis of [place] coronary artery of [place] heart without angina pectoris Mixed hyperlipidemia Primary hypertension Paroxysmal atrial fibrillation (HCC) COMPREHENSIVE METABOLIC PANEL Routine 12/15/2024 10:31 AM INSTRUMENT CHECKER Mixed hyperlipidemia LIPID PANEL Routine 12/15/2024 10:31 AM INSTRUMENT CHECKER Mixed hyperlipidemia SCREENING MAMMOGRAM BILATERAL W DARRIN Routine 01/14/2016 9:36 AM CDT from Last 3 Months or Most Recently Relevant to Health Maintenance Results * (ABNORMAL) Basic metabolic panel (01/13/2025 10:57 AM CDT) Glucose 180(H) 65 - 99 mg/dL [facility] Comment: Fasting reference interval For someone without known diabetes, a glucose value >125 mg/dL indicates that they may have diabetes and this should be confirmed with a follow-up test. BUN 35(H) 7 - 25 mg/dL [facility] Creatinine 1.39(H) 0.60 - 1.00 mg/dL [facility] eGFR 39(L) > OR = 60 mL/min/1.7 3m2 [facility] BUN/creat ratio 25(H) 6 - 22 (calc) [facility] Sodium 130(L) 135 - 146 mmol/L [facility] Potassium, pl 4.4 3.5 - 5.3 mmol/L [facility] Chloride 95(L) 98 - 110 mmol/L [facility] CO2 27 20 - 32 mmol/L [facility] Calcium 8.7 8.6 - 10.4 mg/dL [facility] Blood 01/13/2025 10:5 7 AM CDT 01/13/2025 10:57 AM CDT Narrative [facility] - 01/13/2025 6:14 PM CDT FASTING:YES FASTING: YES Migue Arevalo MD LAB BLOOD ORDERABLES Final Result [facility] [address] [place] [address] * (ABNORMAL) Lipid panel (12/15/2024 10:31 AM INSTRUMENT CHECKER) [facility] Cholesterol 111 <200 mg/dL Marie Whitney HDL 42(L) > OR = 50 mg/dL Marie [facility] Triglycerides 155(H) <150 mg/dL Marie Whitney LDL 46 mg/dL (calc) Marie [facility] Comment: Reference range: <100 Desirable range <100 mg/dL for primary prevention; <70 mg/dL for patients with CHD or diabetic patients with > or = 2 CHD risk factors. LDL-C is now calculated using the Emeterio-Osorio calculation, which is a validated novel method providing better accuracy than the Friedewald equation in the estimation of LDL-C. Emeterio SS et al. LAITH. 2013;310(19): 3944-5371 (http://education.Shopseen/faq/BFN352) Chol/HDL ratio 2.6 <5.0 (calc) Marie Francois[facility]ogn[facility] wheatley [facility]onte Non-HDL, (LDL+VLDL) 69 <130 mg/dL (calc) Marie MashON[facility] wheatley Devonte Comment: For patients with diabetes plus 1 major ASCVD risk factor, treating to a non-HDL-C goal of <100 mg/dL (LDL-C of <70 mg/dL) is considered a therapeutic option. Blood 12/15/2024 10:3 1 AM INSTRUMENT CHECKER 12/15/2024 10:31 AM INSTRUMENT CHECKER Narrative [facility] - 12/16/2024 5:39 AM INSTRUMENT CHECKER FASTING:YES FASTING: YES Migue Arevalo MD LAB BLOOD ORDERABLES Final Result [facility] [address] [place] [address] * (ABNORMAL) Comprehensive metabolic panel (12/15/2024 10:31 AM INSTRUMENT CHECKER) Glucose 156(H) 65 - 99 mg/dL [facility] Whitney Comment: Fasting reference interval For someone without known diabetes, a glucose value >125 mg/dL indicates that they may have diabetes and this should be confirmed with a follow-up test. BUN 39(H) 7 - 25 mg/dL [facility] Creatinine 1.36(H) 0.60 - 1.00 mg/dL [facility] eGFR 40(L) > OR = 60 mL/min/1.7 3m2 [facility] BUN/creat ratio 29(H) 6 - 22 (calc) [facility] Sodium 135 135 - 146 mmol/L [facility] Potassium, pl 3.3(L) 3.5 - 5.3 mmol/L [facility] Chloride 94(L) 98 - 110 mmol/L [facility] CO2 31 20 - 32 mmol/L [facility] Calcium 9.0 8.6 - 10.4 mg/dL [facility] Protein, sr 6.4 6.1 - 8.1 g/dL [facility] Albumin 4.2 3.6 - 5.1 g/dL [facility] GLOBULIN 2.2 1.9 - 3.7 g/dL (calc) [facility] Alb/glob ratio 1.9 1.0 - 2.5 (calc) [facility] Bilirubin, total 0.9 0.2 - 1.2 mg/dL [facility] Alk phos 37 37 - 153 U/L [facility] AST 15 10 - 35 U/L [facility] ALT (SGPT) 9 6 - 29 U/L [facility] Blood 12/15/2024 10:3 1 AM INSTRUMENT CHECKER 12/15/2024 10:31 AM INSTRUMENT CHECKER Narrative [facility] - 12/16/2024 5:39 AM INSTRUMENT CHECKER FASTING:YES FASTING: YES us Migue Arevalo MD LAB BLOOD ORDERABLES Final Result [facility] [address] [place] [address] * Screening Mammogram Bilateral W Darrin (01/14/2016 [...] signed by: Tashi Felix M.D. ab/penrad:01/14/2016 11:04:24 Customer Complaint Clerk: Saturnino Clement Mammography letter sent: Normal Exam [...] made to exams dated: 07/20/2013 mammogram - [facility] and 07/02/2011 [facility]. BREAST TISSUE: There are scattered areas of [...] is made to exams dated: 07/20/2013 mammogram -[facility] and 07/02/2011 [facility]. BREAST TISSUE: There are scattered areas of [...] signed by: Tashi Felix M.D. ab/penrad:01/14/2016 11:04:24 Customer Complaint Clerk: Karly Hernández [facility] letter sent: Normal Exam Reading location: BI-RADS: 1 Negative [EOD] us Solomon Ortiz MD IMG MAMMO PROCEDURES Alisa l Result from Last 3 Months or Most Recently Relevant to Health [place] [address] [place] [address] [facility] [place] Member Subscriber Plan / Payer (Ef fective 2012-Present) Name:Amarilys Garvin Relation to Subscriber:Self Name:Amarilys Garvin Payer ID:[id number] Group ID:Not on file Type:COMMERCIAL Address: [facility] [address] [place], [place] MEDICARE RAILROAD [facility] [place] Member Subscriber Plan / Payer (Ef fective 2012-Present) Name:Amarilys Garvin Relation to Subscriber:Self Name:Amarilys Garvin Payer ID:[id number] Group ID:Not on file Type:COMMERCIAL Address: [facility] [address] [place], [place] Care Teams Head Of Drama Relationship Specialty Start Date End Date Tristan Crawford MD [address] [place] [address] PCP - General Emergency Medicine 02/07/21 Migue Arevalo MD [address] [facility] [place] [address] Consulting Physician Cardiology 05/26/19
--- OUTSIDE RECORDS SUMMARY | 2025-02-15 15:29 | XMS_ITS | Encounter Summary ---
Author Organization [facility] Facility Care Team Providers Care Manufacturing Industrial Engineer Name Role Phone Solomon Ortiz MD Primary Care Provider [phone] Migue Arevalo MD Unavailable Tristan Crawford MD Primary Care Provide r Encounter Details Date Type Department Care Team (Latest Contact Info) Description 11/11/2017 Orders Only [facility] CLINCONV ProviderTiburcio MD [address] [place] [address] Social History Tobacco Use Types Packs/Day Years Used Date Smoking Tobacco: Never Assessed Comments Unknown Sex and Gender Information Value Date Recorded Sex Assigned at Not on file Legal Sex Female 8:21 PM RAT BREEDER Gender Identity Not on file Sexual Orientation Not on file documented as of this encounter Plan of Treatment Not on file documented as of this encounter Procedures Procedure Name Priority Date/Time Associated Diagnosis Comments SCAN - LABS 11/12/2017 12:00 AM RAT BREEDER documented in this encounter Results * SCAN - LABS (11/12/2017 12:00 AM RAT BREEDER) Narrative 11/12/2017 12:00 AM RAT BREEDER Ordered by an unspecified provider. Historical Provider Final Res ult documented in this encounter Visit Diagnoses Not on filedocumented in this encounter Care Teams Manufacturing Industrial Engineer Relationship Specialty Start Date End Date Solomon Ortiz MD [address] [place] [address] PCP - General Family Medicine 05/23/19 02/06/21 Tristan Crawford MD [address] [place] [address] PCP - General Emergency Medicine 02/07/21 Migue Arevalo MD [address] [facility] [place] [address] Consulting Physician Cardiology 05/26/19 documented as of this encounter
--- OUTSIDE RECORDS SUMMARY | 2025-02-15 15:29 | XMS_ITS | Encounter Summary ---
Author Organization [facility] Facility Care Team Providers Care General Production Laborer Name Role Phone Solomon Ortiz MD Primary Care Provider [phone] Migue Arevalo MD Unavailable [phone] Tristan Crawford MD Primary Care Provide r Encounter Details Date Type Department Care Team (Latest Contact Info) Description 11/19/2017 Orders Only [facility] CLINCONV ProviderTiburcio MD [address] [place] [address] Social History Tobacco Use Types Packs/Day Years Used Date Smoking Tobacco: Never Assessed Comments Unknown Sex and Gender Information Value Date Recorded Sex Assigned at Not on file Legal Sex Female 8:21 PM SENIOR ADMINISTRATIVE SUPPORT Gender Identity Not on file Sexual Orientation Not on file documented as of this encounter Plan of Treatment Not on file documented as of this encounter Procedures Procedure Name Priority Date/Time Associated Diagnosis Comments SCAN - LABS 11/27/2017 12:00 AM SENIOR ADMINISTRATIVE SUPPORT documented in this encounter Results * SCAN - LABS (11/27/2017 12:00 AM SENIOR ADMINISTRATIVE SUPPORT) Narrative 11/27/2017 12:00 AM SENIOR ADMINISTRATIVE SUPPORT Ordered by an unspecified provider. Historical Provider Final Res ult documented in this encounter Visit Diagnoses Not on filedocumented in this encounter Care Teams General Production Laborer Relationship Specialty Start Date End Date Solomon Ortiz MD [address] [place] [id number] PCP - General Family Medicine 05/23/19 02/06/21 Tristan Crawford MD [address] [place] [address] PCP - General Emergency Medicine 02/07/21 Migue Arevalo MD [address] [facility] [place] [address] Consulting Physician Cardiology 05/26/19 documented as of this encounter
--- OUTSIDE RECORDS SUMMARY | 2025-02-15 15:29 | XMS_ITS | Encounter Summary ---
Author Organization [facility] Facility Care Team Providers Care Vehicle Painter Name Role Phone Solomon Ortiz MD Primary Care Provider [phone] Migue Arevalo MD Unavailable [phone] Tristan Crawford MD Primary Care Provide r Encounter Details Date Type Department Care Team (Latest Contact Info) Description 02/09/2018 Orders Only [facility] CLINCONV ProviderTiburcio MD [address] [place] [address] Social History Tobacco Use Types Packs/Day Years Used Date Smoking Tobacco: Never Assessed Comments Unknown Sex and Gender Information Value Date Recorded Sex Assigned at Not on file Legal Sex Female 8:21 PM STOCK PREPARER Gender Identity Not on file Sexual Orientation [...] on filedocumented in this encounter Care Teams Vehicle Painter Relationship Specialty Start Date End Date Solomon Ortiz MD [address] [place] [address] PCP - General Family Medicine 05/23/19 02/06/21 Tristan Crawford MD [address] [facility] [address] PCP - General Emergency Medicine 02/07/21 Migue Arevalo MD [address] [place] [address] Consulting Physician Cardiology 05/26/19 documented as of this encounter
--- OUTSIDE RECORDS SUMMARY | 2025-02-15 15:29 | XMS_ITS | Referral Summary ---
Author Organization [facility] Address [address] [place] [address] Care Team Providers Care Service Line Bus Cleaner Name Role Phone Migue Arevalo MD Unavailable [phone] Tristan Crawford MD Primary Care Provide r Encounters Date Type Department Care Team Description 01/16/2025 Results Follow-Up [facility] Cardiology [address] [place] [address] [address] Vivian Gilman RN 12/22/2024 10:30 AM PICKER [employer] SORTER LOAD AND UNLOAD Office Visit [facility] Cardiology [address] [place] [address] [address] Migue Arevalo MD Atherosclerosis of [place] coronary artery of [place] heart without angina pectoris (Primary Dx); Mixed [...] 10/15/2018 Assessment & Plan (11/23/2019 1:13 PM PICKER AND SORTER LOAD AND UNLOAD): Impression: Stable hypertension. Plan: Continue current antihypertensive regimen as directed by PCP. 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 Previous type 2 endoleak has since spontaneously resolved. CTA surveillance revealed interval decrease in [place] aneurysm sac with no evidence of endoleaks. [...] on file Legal Sex Female 8:21 PM PICKER [employer] SORTER LOAD AND UNLOAD Gender Identity Not on file Sexual Orientation Not on file Last Filed Vital Signs Vital Sign Reading Time Taken Comments Blood Pressure 102/54 12/22/2024 10:51 AM PICKER [employer] SORTER LOAD AND UNLOAD Pulse 62 12/22/2024 10:51 AM PICKER [employer] SORTER LOAD AND UNLOAD Temperature 36.3 C (97.3 F) 03/18/2022 9:38 AM CDT Respiratory Rate - - Oxygen Saturation 94% 12/22/2024 10: 51 AM PICKER [employer] SORTER LOAD AND UNLOAD Inhaled Oxygen Concentration - - Weight 71.2 kg (156 lb 14.4 oz) 025 10:51 AM PICKER AND SORTER LOAD AND UNLOAD Height 162.6 cm (5' 4 ) 12/22/2024 10:5 1 AM PICKER AND SORTER LOAD AND UNLOAD Body Mass Index 26.93 12/22/2024 10:51 AM PICKER AND SORTER LOAD AND UNLOAD Plan of Treatment Not on file Procedures Procedure Name Priority Date/Time Associated Diagnosis Comments BASIC METABOLIC PANEL Routine 01/13/2025 10:57 AM CDT Atherosclerosis of [place] coronary artery of [place] heart without angina pectoris Mixed hyperlipidemia Primary hypertension Paroxysmal atrial fibrillation (HCC) COMPREHENSIVE METABOLIC PANEL Routine 12/15/2024 10:31 AM PICKER AND SORTER LOAD AND UNLOAD Mixed hyperlipidemia LIPID PANEL Routine 12/15/2024 10:31 AM PICKER AND SORTER LOAD AND UNLOAD Mixed hyperlipidemia SCREENING MAMMOGRAM BILATERAL W DARRIN Routine 01/14/2016 9:36 AM CDT from Last 3 Months or Most Recently Relevant to Health Maintenance Results * (ABNORMAL) Basic metabolic panel (01/13/2025 10:57 AM CDT) Glucose 180(H) 65 - 99 mg/dL [facility] Comment: Fasting reference interval For someone without known diabetes, a glucose value >125 mg/dL indicates that they may have diabetes and this should be confirmed with a follow-up test. BUN 35(H) 7 - 25 mg/dL [facility] Creatinine 1.39(H) 0.60 - 1.00 mg/dL [facility] eGFR 39(L) > OR = 60 mL/min/1.7 3m2 [facility] BUN/creat ratio 25(H) 6 - 22 (calc) [facility] Sodium 130(L) 135 - 146 mmol/L [facility] Potassium, pl 4.4 3.5 - 5.3 mmol/L [facility] Chloride 95(L) 98 - 110 mmol/L [facility] CO2 27 20 - 32 mmol/L [facility] Calcium 8.7 8.6 - 10.4 mg/dL [facility] Blood 01/13/2025 10:5 7 AM CDT 01/13/2025 10:57 AM CDT Narrative [facility] - 01/13/2025 6:14 PM CDT FASTING:YES FASTING: YES us Migue Arevalo MD LAB BLOOD ORDERABLES Final Result [facility] [address] [place] [address] * (ABNORMAL) Lipid panel (12/15/2024 10:31 AM PICKER AND SORTER LOAD AND UNLOAD) Cholesterol 111 <200 mg/dL [facility] HDL 42(L) > OR = 50 mg/dL [facility] Triglycerides 155(H) <150 mg/dL [facility] LDL 46 mg/dL (calc) [facility] Comment: Reference range: <100 Desirable range <100 mg/dL for primary prevention; <70 mg/dL for patients with CHD or diabetic patients with > or = 2 CHD risk factors. LDL-C is now calculated using the Polo calculation, which is a validated novel method providing better accuracy than the Friedewald equation in the estimation of LDL-C. Emeterio SS et al. LAITH. 2013;310(19): 8106-3876 (http://education.youcalc/faq/EAH395) Chol/HDL ratio 2.6 <5.0 (calc) [facility] Non-HDL, (LDL+VLDL) 69 <130 mg/dL (calc) [facility] Comment: For patients with diabetes plus 1 major ASCVD risk factor, treating to a non-HDL-C goal of <100 mg/dL (LDL-C of <70 mg/dL) is considered a therapeutic option. Blood 12/15/2024 10:3 1 AM PICKER AND SORTER LOAD AND UNLOAD 12/15/2024 10:31 AM PICKER AND SORTER LOAD AND UNLOAD Narrative [facility] - 12/16/2024 5:39 AM PICKER AND SORTER LOAD AND UNLOAD FASTING:YES FASTING: YES us Migue Arevalo MD LAB BLOOD ORDERABLES Final Result [facility] [address] [place] [address] * (ABNORMAL) Comprehensive metabolic panel (12/15/2024 10:31 AM PICKER AND SORTER LOAD AND UNLOAD) Pathologist [facility] Glucose 156(H) 65 - 99 mg/dL [facility] Comment: Fasting reference interval For someone without known diabetes, a glucose value >125 mg/dL indicates that they may have diabetes and this should be confirmed with a follow-up test. BUN 39(H) 7 - 25 mg/dL [facility] Creatinine 1.36(H) 0.60 - 1.00 mg/dL [facility] eGFR 40(L) > OR = 60 mL/min/1.7 3m2 [facility] BUN/creat ratio 29(H) 6 - 22 (calc) [facility] Sodium 135 135 - 146 mmol/L [facility] Potassium, pl 3.3(L) 3.5 - 5.3 mmol/L [facility] Chloride 94(L) 98 - 110 mmol/L [facility] CO2 31 20 - 32 mmol/L [facility] Calcium 9.0 8.6 - 10.4 mg/dL [facility] Protein, sr 6.4 6.1 - 8.1 g/dL [facility] Albumin 4.2 3.6 - 5.1 g/dL [facility] GLOBULIN 2.2 1.9 - 3.7 g/dL (calc) [facility] Alb/glob ratio 1.9 1.0 - 2.5 (calc) [facility] Bilirubin, total 0.9 0.2 - 1.2 mg/dL [facility] Alk phos 37 37 - 153 U/L [facility] AST 15 10 - 35 U/L [facility] ALT (SGPT) 9 6 - 29 U/L [facility]oisGu[facility] Youboy NetworkAlb[facility] Blood 12/15/2024 10:3 1 AM PICKER AND SORTER LOAD AND UNLOAD 12/15/2024 10:31 AM PICKER AND SORTER LOAD AND UNLOAD [facility] - 12/16/2024 5:39 AM PICKER AND SORTER LOAD AND UNLOAD FASTING:YES FASTING: YES us Migue Arevalo MD LAB BLOOD ORDERABLES Final Result Performing Organization Address City/State/[facility] Co de Phone Number [facility] [address] [place] [address] * Screening Mammogram Bilateral W Darrin (01/14/2016 [...] signed by: Tashi Felix M.D. ab/penrad:01/14/2016 11:04:24 Scalemaker: Karly Hernández [facility] letter sent: Normal Exam Reading location: [...] made to exams dated: 07/20/2013 mammogram - [facility] and 07/02/2011 [facility]. BREAST TISSUE: There are scattered areas of [...] is made to exams dated: 07/20/2013 mammogram -[facility] and 07/02/2011 [facility]. BREAST TISSUE: There are scattered areas of [...] exam. Electronically signed by: Tashi aguirre/jeet:01/14/2016 11:04:24 Scalemaker: Saturnino [facility] letter sent: Normal Exam Reading location: BI-RADS: 1 Negative [EOD] Solomon Ortiz MD IMG MAMMO PROCEDURES Alisa l Result from Last 3 Months or Most Recently Relevant to Health Maintenance Insurance MEDICARE [place]RO[place] MEDICARE RAILROAD [facility] [place] Care Teams Service Line Bus Cleaner Relationship Specialty Start Date End Date Tristan Crawford MD [address] [place] [address] PCP - General Emergency Medicine 02/07/21 Migue Arevalo MD [address] [place] [address] Consulting Physician Cardiology 05/26/19
--- OUTSIDE RECORDS SUMMARY | 2025-02-15 15:29 | XMS_ITS | Encounter Summary ---
Author Organization [facility] Facility Care Team Providers Care Bundle Clerk Name Role Phone Solomon Ortiz MD Primary Care Provider [phone] Migue Arevalo MD Unavailable [phone] Tristan Crawford MD Primary Care Provide r Encounter Details Date Type Department Care Team (Latest Contact Info) Description 09/28/2017 Orders Only MMG CLINCONV ProviderTiburcio MD [address] [place] [address] Social History Tobacco Use Types Packs/Day Years Used Date Smoking Tobacco: Never Assessed Comments Unknown Sex and Gender Information Value Date Recorded Sex Assigned at Not on file Legal Sex Female 8:21 PM DIRECTOR OF MARKETING OPERATIONS Gender Identity Not on file Sexual Orientation [...] on filedocumented in this encounter Care Teams Bundle Clerk Relationship Specialty Start Date End Date Solomon Ortiz MD [address] [place] [id number] PCP - General Family Medicine 05/23/19 02/06/21 Tristan Crawford MD [address] [place] [address] PCP - General Emergency Medicine 02/07/21 Migue Arevalo MD [address] [facility] [place] [address] Consulting Physician Cardiology 05/26/19 documented as of this encounter
--- OUTSIDE RECORDS SUMMARY | 2025-02-15 15:29 | XMS_ITS | Encounter Summary ---
Author Organization [facility] Facility Care Team Providers Care Vine Fruit Farming Supervisor Name Role Phone Solomon Ortiz MD Primary Care Provider [phone] Migue Arevalo MD Unavailable [phone] Tristan Crawford MD Primary Care Provide r Encounter Details Date Type Department Care Team (Latest Contact Info) Description 11/10/2017 Orders Only MMG CLINCONV ProviderTiburcio MD [address] [place] [address] Social History Tobacco Use Types Packs/Day Years Used Date Smoking Tobacco: Never Assessed Comments Unknown Sex and Gender Information Value Date Recorded Sex Assigned at Not on file Legal Sex Female 8:21 PM INDUSTRIAL RELATIONS REPRESENTATIVE Gender Identity Not on file Sexual Orientation Not on file documented as of this encounter Plan of Treatment Not on file documented as of this encounter Procedures Procedure Name Priority Date/Time Associated Diagnosis Comments SCAN - LABS 11/12/2017 12:00 AM INDUSTRIAL RELATIONS REPRESENTATIVE documented in this encounter Results * SCAN - LABS (11/12/2017 12:00 AM INDUSTRIAL RELATIONS REPRESENTATIVE) Narrative 11/12/2017 12:00 AM INDUSTRIAL RELATIONS REPRESENTATIVE Ordered by an unspecified provider. Historical Provider Final Res ult documented in this encounter Visit Diagnoses Not on filedocumented in this encounter Care Teams Vine Fruit Farming Supervisor Relationship Specialty Start Date End Date Solomon Ortiz MD [address] [place] [address] PCP - General Family Medicine 05/23/19 02/06/21 Tristan Crawford MD [address] [place] [address] PCP - General Emergency Medicine 02/07/21 Migue Arevalo MD [address] [facility] [place] [address] Consulting Physician Cardiology 05/26/19 documented as of this encounter
--- OUTSIDE RECORDS SUMMARY | 2025-02-15 15:29 | XMS_ITS | Encounter Summary ---
Author Organization [facility] Facility Care Team Providers Care Stroke Program Coordinator Name Role Phone Solomon Ortiz MD Primary Care Provider [phone] Migue Arevalo MD Unavailable [phone] Tristan Crawford MD Primary Care Provide r Encounter Details Date Type Department Care Team (Latest Contact Info) Description 09/16/2018 Orders Only MMG CLINCONV ProviderTiburcio MD [address] [place] [address] Social History Tobacco Use Types Packs/Day Years Used Date Smoking Tobacco: Never Assessed Comments Unknown Sex and Gender Information Value Date Recorded Sex Assigned at Not on file Legal Sex Female 8:21 PM RECOOPERER Gender Identity Not on file Sexual Orientation Not on file documented as of this encounter Plan of Treatment Not on file documented as of this encounter Procedures Procedure Name Priority Date/Time Associated Diagnosis Comments SCAN - LABS 09/20/2018 12:00 AM RECOOPERER SCAN - LABS 09/17/2018 12:00 AM RECOOPERER documented in this encounter Results * SCAN - LABS (09/20/2018 12:00 AM RECOOPERER) Narrative 09/20/2018 12:00 AM RECOOPERER Ordered by an unspecified provider. Historical Provider Final Res ult * SCAN - LABS (09/17/2018 12:00 AM RECOOPERER) Narrative 09/17/2018 12:00 AM RECOOPERER Ordered by an unspecified provider. Historical Provider Final Res ult documented in this encounter Visit Diagnoses Not on filedocumented in this encounter Care Teams Stroke Program Coordinator Relationship Specialty Start Date End Date Solomon Ortiz MD [address] [place] [address] PCP - General Family Medicine 05/23/19 02/06/21 Tristan Crawford MD [address] [facility] [place] [address] PCP - General Emergency Medicine 02/07/21 Migue Arevalo MD [address] [facility] [place] [address] Consulting Physician Cardiology 05/26/19 documented as of this encounter
--- OUTSIDE RECORDS SUMMARY | 2025-02-15 15:29 | XMS_ITS | Encounter Summary ---
Author Organization [facility] Healthcare Address [address] [place] [address] Care Team Providers Care Acoustical Installer Name Role Phone Migue Arevalo MD Unavailable [phone] Tristan Crawford MD Primary Care Provide r Encounter Details Date Type Department Care Team (Late st Contact Info) Description 01/16/2025 Results Follow-Up [facility] Cardiology [address] [address] Vivian Gilman RN Social History Tobacco Use Types Packs/Day Years Used Date Smoking Tobacco: Former Smokeless Tobacco: Never Comments Unknown Sex and Gender Information Value Date Recorded Sex Assigned at Not on file Legal Sex Female 8:21 PM FEDERAL DISTRICT LAW CLERK Gender Identity Not on file Sexual Orientation Not on file documented as of this encounter Plan of Treatment Not on file documented as of this encounter Visit Diagnoses Not on filedocumented in this encounter Care Teams Acoustical Installer Relationship Specialty Start Date End Date Tirstan Crawford MD [address] [place] [address] PCP - General Emergency Medicine 02/07/21 Migue Arevalo MD [address] [place] [address] Consulting Physician Cardiology 05/26/19 documented as of this encounter
--- OUTSIDE RECORDS SUMMARY | 2025-02-15 15:29 | XMS_ITS | Encounter Summary ---
Author Organization [facility] Facility Care Team Providers Care Box Toe Stitcher Name Role Phone Solomon Ortiz MD Primary Care Provider [phone] Migue Arevalo MD Unavailable [phone] Tristan Crawford MD Primary Care Provide r Encounter Details Date Type Department Care Team (Latest Contact Info) Description 02/11/2018 Orders Only MMG CLINCONV ProviderTiburcio MD [address] [place] [address] Social History Tobacco Use Types Packs/Day Years Used Date Smoking Tobacco: Never Assessed Comments Unknown Sex and Gender Information Value Date Recorded Sex Assigned at Not on file Legal Sex Female 8:21 PM PROTEIN PURIFICATION SCIENTIST Gender Identity Not on file Sexual Orientation [...] on filedocumented in this encounter Care Teams Box Toe Stitcher Relationship Specialty Start Date End Date Solomon Ortiz MD [address] [place] [address] PCP - General Family Medicine 05/23/19 02/06/21 Tristan Crawford MD [address] [place] [address] PCP - General Emergency Medicine 02/07/21 Migue Arevalo MD [address] [facility] [place] [address] Consulting Physician Cardiology 05/26/19 documented as of this encounter
== END 2025-02-15 14:23 | disposition home or self-care (01) ==
LOC: ANHIMG 14:24
PROVIDERS: Visit Provider Internal Medicine Hematology & Oncology
DX: Z12.31 Encounter for screening mammogram for malignant neoplasm of breast (principal); R92.8 Other abnormal and inconclusive findings on diagnostic imaging of breast
CPT/HCPCS: 77063; 77067

== ENCOUNTER 2025-04-03 12:14 | Outpatient (CLI) | payer MEDICARE, OTHER, SELFPAY ==
--- NOTE | ~2025-04-03 | MMUS_ITS ---
EXAMINATION: US breast LT limited, MM diagnostic macarena LT w ernesto HISTORY: Follow-up left breast asymmetry TECHNIQUE: Additional 3-D tomosynthesis images of the left breast were performed and synthetic 2-D im ages were generated. CAD analysis was submitted and interpreted. High resolution Limited left breast ultrasound was performed. COMPARISON: Comparison to multiple prior studies sequentially, with oldest reviewed study dated 07/09. BREAST PARENCHYMAL COMPOSITION: Not dense: There are scattered areas of fibroglandular density. FINDINGS: MAMMOGRAPHIC FINDINGS: There are no suspicious masses, calcifications or architectural distortion in the left breast to sugg est malignancy. ULTRASOUND: Limited left breast ultrasound: At 3:00, 2 cm from the nipple there is a 2 mm cyst. No suspicious mas ses to suggest malignancy. IMPRESSION: 1. No evidence for malignancy in the left breast. 2. Routine yearly screening mammogram and regular clinical breast examination are recommended. BI-RADS Category 2: Benign finding(s). Reviewed, dictated and finalized at location A. IMPRESSION: 1. No evidence for malignancy in the left breast. 2. Routine yearly screening mammogram and regular clinical breast examination a re recommended. BI-RADS Category 2: Benign finding(s).
--- OUTSIDE RECORDS SUMMARY | 2025-04-03 13:12 | XMS_ITS | Encounter Summary ---
Author Organization [facility] Facility Care Team Providers Care Teaching Manager Name Role Phone Solomon Ortiz MD Primary Care Provider [phone] Migue Arevalo MD Unavailable [phone] Tristan Crawford MD Primary Care Provide r Encounter Details Date Type Department Care Team (Latest Contact Info) Description 09/16/2018 Orders Only MMG CLINCONV ProviderTiburcio MD [address] [place] [address] Social History Tobacco Use Types Packs/Day Years Used Date Smoking Tobacco: Never Assessed Comments Unknown Sex and Gender Information Value Date Recorded Sex Assigned at Not on file Legal Sex Female 8:21 PM RN IMCU Gender Identity Not on file Sexual Orientation Not on file documented as of this encounter Plan of Treatment Not on file documented as of this encounter Procedures Procedure Name Priority Date/Time Associated Diagnosis Comments SCAN - LABS 09/20/2018 12:00 AM RN IMCU SCAN - LABS 09/17/2018 12:00 AM RN IMCU documented in this encounter Results * SCAN - LABS (09/20/2018 12:00 AM RN IMCU) Narrative 09/20/2018 12:00 AM RN IMCU Ordered by an unspecified provider. Historical Provider Final Res ult * SCAN - LABS (09/17/2018 12:00 AM RN IMCU) Narrative 09/17/2018 12:00 AM RN IMCU Ordered by an unspecified provider. Historical Provider Final Res ult documented in this encounter Visit Diagnoses Not on filedocumented in this encounter Care Teams Teaching Manager Relationship Specialty Start Date End Date Solomon Ortiz MD [address] [place] [address] PCP - General Family Medicine 05/23/19 02/06/21 Tristan Crawford MD [address] [facility] [place] [address] PCP - General Emergency Medicine 02/07/21 Migue Arevalo MD [address] [place] [address] Consulting Physician Cardiology 05/26/19 documented as of this encounter
--- OUTSIDE RECORDS SUMMARY | 2025-04-03 13:12 | XMS_ITS | Encounter Summary ---
Author Organization [facility] Facility Care Team Providers Care Road Inspector Name Role Phone Solomon Ortiz MD Primary Care Provider [phone] Migue Arevalo MD Unavailable [phone] Tristan Crawford MD Primary Care Provide r Encounter Details Date Type Department Care Team (Latest Contact Info) Description 11/03/2017 Orders Only MMG CLINCONV ProviderTiburcio MD [address] [place] [address] Social History Tobacco Use Types Packs/Day Years Used Date Smoking Tobacco: Never Assessed Comments Unknown Sex and Gender Information Value Date Recorded Sex Assigned at Not on file Legal Sex Female 8:21 PM PLATFORM INSPECTOR Gender Identity Not on file Sexual Orientation Not on file documented as of this encounter Plan of Treatment Not on file documented as of this encounter Procedures Procedure Name Priority Date/Time Associated Diagnosis Comments SCAN - LABS 11/05/2017 12:00 AM PLATFORM INSPECTOR documented in this encounter Results * SCAN - LABS (11/05/2017 12:00 AM PLATFORM INSPECTOR) Narrative 11/05/2017 12:00 AM PLATFORM INSPECTOR Ordered by an unspecified provider. Historical Provider Final Res ult documented in this encounter Visit Diagnoses Not on filedocumented in this encounter Care Teams Road Inspector Relationship Specialty Start Date End Date Solomon Ortiz MD [address] [place] [address] PCP - General Family Medicine 05/23/19 02/06/21 Tristan Crawford MD [address] [place] [address] PCP - General Emergency Medicine 02/07/21 Migue Arevalo MD [address] [facility] [address] Consulting Physician Cardiology 05/26/19 documented as of this encounter
--- OUTSIDE RECORDS SUMMARY | 2025-04-03 13:12 | XMS_ITS | Encounter Summary ---
Author Organization [facility] Facility Care Team Providers Care Psychiatry Instructor Name Role Phone Solomon Ortiz MD Primary Care Provider [phone] Migue Arevalo MD Unavailable [phone] Tristan Crawford MD Primary Care Provide r Encounter Details Date Type Department Care Team (Latest Contact Info) Description 02/11/2018 Orders Only MMG CLINCONV ProviderTiburcio MD [address] [place] [address] Social History Tobacco Use Types Packs/Day Years Used Date Smoking Tobacco: Never Assessed Comments Unknown Sex and Gender Information Value Date Recorded Sex Assigned at Not on file Legal Sex Female 8:21 PM SLOT OPERATIONS MANAGER Gender Identity Not on file Sexual [...] on filedocumented in this encounter Care Teams Psychiatry Instructor Relationship Specialty Start Date End Date Solomon Ortiz MD [address] [place] [address] PCP - General Family Medicine 05/23/19 02/06/21 Tristan Crawford MD [address] [place] [address] PCP - General Emergency Medicine 02/07/21 Migue Arevalo MD [address] [facility] [place] [address] Consulting Physician Cardiology 05/26/19 documented as of this encounter
--- OUTSIDE RECORDS SUMMARY | 2025-04-03 13:12 | XMS_ITS | Clinical Summary ---
Author Organization [facility] Hermes mitchell [facility] Address [address] [place] [address] Care Team Providers Care Marketing Associate Name Role Phone Tristan Crawford MD Primary Care Provider [phone] Allergies No known active allergies Medications atorvastatin [...] Encounters Date Type Department Care Team Description 03/14/2025 External Device Data STL ABSTRACTION Provider, Abstract 03/08/2025 External Device Data STL ABSTRACTION Provider, Abstract 03/07/2025 External Device Data STL ABSTRACTION Provider, Abstract 02/17/2025 Abstract [facility] Oncology and Hematology [facility] [address] [place] [address] Panda Busby MD 02/16/2025 Orders Only [facility] Oncology [facility] [address] [place] [address] Panda Busby MD Abnormal mammogram of left breast (Primary Dx) 01/04/2025 11:30 AM CDT Office Visit [facility] Oncology and [facility] [address] [place] [address] Panda Busby MD Malignant neoplasm of right breast in female, estrogen receptor positive, unspecified site of breast (CMS/HCC) (Primary Dx) from Last 3 Months Family History Medical [...] on file Legal Sex Female 9:20 AM ENROLLMENT COORDINATOR Gender Identity Not on file Sexual Orientation [...] 11:28 AM CDT Height 162.6 cm (5' 4) 11/04/2022 3:02 PM ENROLLMENT COORDINATOR Body Mass Index 26.54 11/04/2022 3:02 PM ENROLLMENT COORDINATOR Plan of Treatment Upcoming Encounters Date Type Department Care Team (Late st Contact Info) Description 05/12/2025 11:00 AM CDT Office Visit [facility] Oncology and Hematology - [place] [address] [facility] [address] [place] [address] Panda Busby MD [address] [facility] [address] [place] [address] Health Maintenance Due Date Last Done Comments DTAP/TDAP/TD VACCINES (1 - Tdap) 1966 PNEUMOCOCCAL VACCINE 50+ YEARS (1 of 2 - PCV) 04/25/19 66 ZOSTER VACCINE (1 of 2) 1997 RSV VACCINE (60+ or ) (1 - 1-dose 75+ series) 2022 INFLUENZA VACCINE (#1) 2024 OSTEOPOROSIS SCREENING 03/10/2028 03/10/2023 Procedures Procedure Name Priority Date/Time Associated Diagnosis Comments MAMMO SCREENING BILAT Routine 02/15/2025 9:28 AM CDT from Last 3 Months Results * MAMMO SCREENING BILAT (02/15/2025 9:28 AM CDT) Anatomical Region Laterality Modality Breast Bilateral Mammography Panda Busby MD MAMMO ORDERABLES Final Result from Last 3 Months Insurance MEDICARE [employer] [facility] Care Teams Marketing Associate Relationship Specialty Start Date End Date Tristan Crawford MD [address] [place] [address] PCP - General Internal Medicine 10/31/22
--- OUTSIDE RECORDS SUMMARY | 2025-04-03 13:12 | XMS_ITS | Referral Summary ---
Author Organization [facility] Address [address] [place] [address] Care Team Providers Care Trade Clerk Name Role Phone Migue Arevalo MD Unavailable [phone] Tristan Crawford MD Primary Care Provide r Encounters Date Type Department Care Team Description 01/16/2025 Results Follow-Up [facility] Cardiology [address] [facility] [address] [place] [address] Vivian Gilman RN Basic metabolic panel from Last 3 Months Allergies No known [...] mg total) by mouth daily 3 Active losartan (COZAAR) 25 mg tablet TAKE [...] by mouth daily 90 tablet 3 5 026 Active metOLazone (ZAROXOLYN) 2.5 mg tablet TAKE 1 TABLET(2.5 MG) BY MOUTH TWICE DAILY 180 tablet 1 5 Active metOLazone (ZAROXOLYN) 2.5 mg tablet Take 1 tablet (2.5 mg total) by mouth 2 (two) times a day 180 tablet 1 4 025 Discontinued Active Problems Problem Noted Date Diagnosed Date Preoperative clearance 09/17/2022 Mixed hyperlipidemia 09/17/2021 Hypokalemia 06/08/2020 HTN (hypertension) 10/15/2018 Assessment & Plan (11/23/2019 1:13 PM REAL ESTATE SPECIALIST): Impression: Stable hypertension. Plan: Continue current antihypertensive regimen as directed by PCP. 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 Previous type 2 endoleak has since spontaneously resolved. CTA surveillance revealed interval decrease in [place] aneurysm sac with no evidence of endoleaks. [...] on file Legal Sex Female 8:21 PM REAL ESTATE SPECIALIST Gender Identity Not on file Sexual Orientation Not on file Last Filed Vital Signs Vital Sign Reading Time Taken Comments Blood Pressure 102/54 12/22/2024 10:51 AM REAL ESTATE SPECIALIST Pulse 62 12/22/2024 10:51 AM REAL ESTATE SPECIALIST Temperature 36.3 C (97.3 F) 03/18/2022 9:38 AM CDT Respiratory Rate - - Oxygen Saturation 94% 12/22/2024 10: 51 AM REAL ESTATE SPECIALIST Inhaled Oxygen Concentration - - Weight 71.2 kg (156 lb 14.4 oz) 025 10:51 AM REAL ESTATE SPECIALIST Height 162.6 cm (5' 4) 12/22/2024 10:5 1 AM REAL ESTATE SPECIALIST Body Mass Index 26.93 12/22/2024 10:51 AM REAL ESTATE SPECIALIST Plan of Treatment Not on file Procedures Procedure Name Priority Date/Time Associated Diagnosis Comments BASIC METABOLIC PANEL Routine 01/13/2025 10:57 AM CDT Atherosclerosis of [place] coronary artery of [place] heart without angina pectoris Mixed hyperlipidemia Primary hypertension Paroxysmal atrial fibrillation (HCC) SCREENING MAMMOGRAM BILATERAL W DARRIN Routine 01/14/2016 9:36 AM CDT from Last 3 Months or Most Recently Relevant to Health Maintenance Results * (ABNORMAL) Basic metabolic panel (01/13/2025 10:57 AM CDT) Glucose 180(H) 65 - 99 mg/dL [facility] Comment: Fasting reference interval For someone without known diabetes, a glucose value >125 mg/dL indicates that they may have diabetes and this should be confirmed with a follow-up test. BUN 35(H) 7 - 25 mg/dL [facility] Creatinine 1.39(H) 0.60 - 1.00 mg/dL [facility] eGFR 39(L) > OR = 60 mL/min/1.7 3m2 [facility] BUN/creat ratio 25(H) 6 - 22 (calc) [facility] Sodium 130(L) 135 - 146 mmol/L [facility] Potassium, pl 4.4 3.5 - 5.3 mmol/L [facility] Chloride 95(L) 98 - 110 mmol/L [facility] CO2 27 20 - 32 mmol/L [facility] Calcium 8.7 8.6 - 10.4 mg/dL [facility] Blood 01/13/2025 10:5 7 AM CDT 01/13/2025 10:57 AM CDT Narrative [facility] - 01/13/2025 6:14 PM CDT FASTING:YES FASTING: YES Migue Arevalo MD LAB BLOOD ORDERABLES Final Result Performing Organization Address City/State/[facility] Co de Phone Number [facility] [address] [place] [address] * Screening Mammogram Bilateral W Darrin (01/14/2016 [...] exam. Electronically signed by: Tashi aguirre/jeet:01/14/2016 11:04:24 Bander: Karly Hernández, [facility] letter sent: Normal Exam Reading location: [...] made to exams dated: 07/20/2013 mammogram - [facility] and 07/02/[address] [facility]. BREAST TISSUE: There are scattered areas of [...] is made to exams dated: 07/20/2013 mammogram -[facility] and 07/02/[address] [facility]. BREAST TISSUE: There are scattered areas of [...] exam. Electronically signed by: Tashi aguirre/jeet:01/14/2016 11:04:24 Bander: [facility] letter sent: Normal Exam Reading location: BI-RADS: 1 Negative [EOD] Solomon Ortiz MD IMG MAMMO PROCEDURES Alisa l Result from Last 3 Months or Most Recently Relevant to Health Maintenance Insurance [place]ICARE [employer] [place] [employer] [place] [employer] Care Teams Trade Clerk Relationship Specialty Start Date End Date Tristan Crawford MD [address] [place] [address] PCP - General Emergency Medicine 02/07/21 Migue Arevalo MD [address] [facility] [address] [place] [place] [address] Consulting Physician Cardiology 05/26/19
--- OUTSIDE RECORDS SUMMARY | 2025-04-03 13:12 | XMS_ITS | Encounter Summary ---
Author Organization [facility] Facility Care Team Providers Care Sound Tester Name Role Phone Solomon Ortiz MD Primary Care Provider [phone] Migue Arevalo MD Unavailable [phone] Tristan Crawford MD Primary Care Provide r Encounter Details Date Type Department Care Team (Latest Contact Info) Description 11/19/2017 Orders Only [facility] ProviderTiburcio MD [address] [place] [address] Social History Tobacco Use Types Packs/Day Years Used Date Smoking Tobacco: Never Assessed Comments Unknown Sex and Gender Information Value Date Recorded Sex Assigned at Not on file Legal Sex Female 8:21 PM SHEET ROCK TAPER HELPER Gender Identity Not on file Sexual Orientation Not on file documented as of this encounter Plan of Treatment Not on file documented as of this encounter Procedures Procedure Name Priority Date/Time Associated Diagnosis Comments SCAN - LABS 11/27/2017 12:00 AM SHEET ROCK TAPER HELPER documented in this encounter Results * SCAN - LABS (11/27/2017 12:00 AM SHEET ROCK TAPER HELPER) Narrative 11/27/2017 12:00 AM SHEET ROCK TAPER HELPER Ordered by an unspecified provider. Historical Provider Final Res ult documented in this encounter Visit Diagnoses Not on filedocumented in this encounter Care Teams Sound Tester Relationship Specialty Start Date End Date Solomon Ortiz MD [address] [place] [address] PCP - General Family Medicine 05/23/19 02/06/21 Tristan Crawford MD [address] [place] [address] PCP - General Emergency Medicine 02/07/21 Migue Arevalo MD [address] [place] [address] Consulting Physician Cardiology 05/26/19 documented as of this encounter
--- OUTSIDE RECORDS SUMMARY | 2025-04-03 13:12 | XMS_ITS | Encounter Summary ---
Author Organization [facility] Facility Care Team Providers Care Business Librarian Name Role Phone Solomon Ortiz MD Primary Care Provider [phone] Migue Arevalo MD Unavailable [phone] Tristan Crawford MD Primary Care Provide r Encounter Details Date Type Department Care Team (Latest Contact Info) Description 11/22/2018 Orders Only [facility]IN[facility] ProviderTiburcio MD [address] [place] [address] Social History Tobacco Use Types Packs/Day Years Used Date Smoking Tobacco: Never Assessed Comments Unknown Sex and Gender Information Value Date Recorded Sex Assigned at Not on file Legal Sex Female 8:21 PM PROGRAM EVALUATION CONSULTANT Gender Identity Not on file Sexual Orientation Not on file documented as of this encounter Plan of Treatment Not on file documented as of this encounter Procedures Procedure Name Priority Date/Time Associated Diagnosis Comments SCAN - LABS 11/23/2018 12:00 AM PROGRAM EVALUATION CONSULTANT documented in this encounter Results * SCAN - LABS (11/23/2018 12:00 AM PROGRAM EVALUATION CONSULTANT) Narrative 11/23/2018 12:00 AM PROGRAM EVALUATION CONSULTANT Ordered by an unspecified provider. Historical Provider Final Res ult documented in this encounter Visit Diagnoses Not on filedocumented in this encounter Care Teams Business Librarian Relationship Specialty Start Date End Date Solomon Ortiz MD [address] [place] [address] PCP - General Family Medicine 05/23/19 02/06/21 Tristan Crawford MD [address] [place] [address] PCP - General Emergency Medicine 02/07/21 Migue Arevalo MD [address] [facility] [place] [address] Consulting Physician Cardiology 05/26/19 documented as of this encounter
--- OUTSIDE RECORDS SUMMARY | 2025-04-03 13:12 | XMS_ITS | Encounter Summary ---
Author Organization [facility] Facility Care Team Providers Care Remediation Project Engineer Name Role Phone Solomon Ortiz MD Primary Care Provider [phone] Migue Arevalo MD Unavailable [phone] Tristan Crawford MD Primary Care Provide r Encounter Details Date Type Department Care Team (Latest Contact Info) Description 10/07/2018 Orders Only [facility] CLINCONV ProviderTiburcio MD [address] [place] [address] Social History Tobacco Use Types Packs/Day Years Used Date Smoking Tobacco: Never Assessed Comments Unknown Sex and Gender Information Value Date Recorded Sex Assigned at Not on file Legal Sex Female 8:21 PM INSTRUMENTATION DESIGNER Gender Identity Not on file Sexual Orientation Not on file documented as of this encounter Plan of Treatment Not on file documented as of this encounter Procedures Procedure Name Priority Date/Time Associated Diagnosis Comments SCAN - LABS 10/08/2018 12:00 AM INSTRUMENTATION DESIGNER documented in this encounter Results * SCAN - LABS (10/08/2018 12:00 AM INSTRUMENTATION DESIGNER) Narrative 10/08/2018 12:00 AM INSTRUMENTATION DESIGNER Ordered by an unspecified provider. Historical Provider Final Res ult documented in this encounter Visit Diagnoses Not on filedocumented in this encounter Care Teams Remediation Project Engineer Relationship Specialty Start Date End Date Solomon Ortiz MD [address] [place] [address] PCP - General Family Medicine 05/23/19 02/06/21 Tristan Crawford MD [address] [place] [address] PCP - General Emergency Medicine 02/07/21 Migue Arevalo MD [address] [place] [address] Consulting Physician Cardiology 05/26/19 documented as of this encounter
--- OUTSIDE RECORDS SUMMARY | 2025-04-03 13:12 | XMS_ITS | Encounter Summary ---
Author Organization [facility] Facility Care Team Providers Care Superior Court Clerk Name Role Phone Solomon Ortiz MD Primary Care Provider [phone] Migue Arevalo MD Unavailable Tristan Crawford MD Primary Care Provide r Encounter Details Date Type Department Care Team (Latest Contact Info) Description 09/28/2017 Orders Only [facility] CLINCONV ProviderTiburcio MD [address] [place] [address] Social History Tobacco Use Types Packs/Day Years Used Date Smoking Tobacco: Never Assessed Comments Unknown Sex and Gender Information Value Date Recorded Sex Assigned at Not on file Legal Sex Female 8:21 PM POURER OFF Gender Identity Not on file Sexual Orientation [...] on filedocumented in this encounter Care Teams Superior Court Clerk Relationship Specialty Start Date End Date Solomon Ortiz MD [address] [place] [id number] PCP - General Family Medicine 05/23/19 02/06/21 Tristan Crawford MD [address] [place] [address] PCP - General Emergency Medicine 02/07/21 Migue Arevalo MD [address] [facility] [address] [place] [address] Consulting Physician Cardiology 05/26/19 documented as of this encounter
--- OUTSIDE RECORDS SUMMARY | 2025-04-03 13:12 | XMS_ITS | Encounter Summary ---
Author Organization [facility] Facility Care Team Providers Care Career Development Counselor Name Role Phone Solomon Ortiz MD Primary Care Provider [phone] Migue Arevalo MD Unavailable [phone] Tristan Crawford MD Primary Care Provide r Encounter Details Date Type Department Care Team (Latest Contact Info) Description 11/10/2017 Orders Only [facility] CLINCONV ProviderTiburcio MD [address] [place] [address] Social History Tobacco Use Types Packs/Day Years Used Date Smoking Tobacco: Never Assessed Comments Unknown Sex and Gender Information Value Date Recorded Sex Assigned at Not on file Legal Sex Female 8:21 PM LEAD DATABASE ADMINISTRATOR Gender Identity Not on file Sexual Orientation Not on file documented as of this encounter Plan of Treatment Not on file documented as of this encounter Procedures Procedure Name Priority Date/Time Associated Diagnosis Comments SCAN - LABS 11/12/2017 12:00 AM LEAD DATABASE ADMINISTRATOR documented in this encounter Results * SCAN - LABS (11/12/2017 12:00 AM LEAD DATABASE ADMINISTRATOR) Narrative 11/12/2017 12:00 AM LEAD DATABASE ADMINISTRATOR Ordered by an unspecified provider. Historical Provider Final Res ult documented in this encounter Visit Diagnoses Not on filedocumented in this encounter Care Teams Career Development Counselor Relationship Specialty Start Date End Date Solomon Ortiz MD [address] [place] [address] PCP - General Family Medicine 05/23/19 02/06/21 Tristan Crawford MD [address] [place] [address] PCP - General Emergency Medicine 02/07/21 Migue Arevalo MD [address] [facility] [place] [address] Consulting Physician Cardiology 05/26/19 documented as of this encounter
--- OUTSIDE RECORDS SUMMARY | 2025-04-03 13:12 | XMS_ITS | Encounter Summary ---
Author Organization [facility] Facility Care Team Providers Care Hvac Refrigeration Technician Name Role Phone Solomon Ortiz MD Primary Care Provider [phone] Migue Arevalo MD Unavailable [phone] Tristan Crawford MD Primary Care Provide r Encounter Details Date Type Department Care Team (Latest Contact Info) Description 02/09/2018 Orders Only [facility] CLINCONV ProviderTiburcio MD [address] [place] [address] Social History Tobacco Use Types Packs/Day Years Used Date Smoking Tobacco: Never Assessed Comments Unknown Sex and Gender Information Value Date Recorded Sex Assigned at Not on file Legal Sex Female 8:21 PM BELT MAKER HELPER Gender Identity Not on file Sexual [...] on filedocumented in this encounter Care Teams Hvac Refrigeration Technician Relationship Specialty Start Date End Date Solomon Ortiz MD [address] [place] [address] PCP - General Family Medicine 05/23/19 02/06/21 Tristan Crawford MD [address] [facility] [place] [place] [address] PCP - General Emergency Medicine 02/07/21 Migue Arevalo MD [address] [facility] [place] [address] Consulting Physician Cardiology 05/26/19 documented as of this encounter
--- OUTSIDE RECORDS SUMMARY | 2025-04-03 13:12 | XMS_ITS | Encounter Summary ---
Author Organization [facility] Facility Care Team Providers Care Well Treatment Offsider Name Role Phone Solomon Ortiz MD Primary Care Provider [phone] Migue Arevalo MD Unavailable [phone] Tristan Crawford MD Primary Care Provide r Encounter Details Date Type Department Care Team (Latest Contact Info) Description 03/01/2018 Orders Only [facility] CLINCONV ProviderTiburcio MD [address] [place] [address] Social History Tobacco Use Types Packs/Day Years Used Date Smoking Tobacco: Never Assessed Comments Unknown Sex and Gender Information Value Date Recorded Sex Assigned at Not on file Legal Sex Female 8:21 PM LAB TECH Gender Identity Not on file Sexual Orientation [...] on filedocumented in this encounter Care Teams Well Treatment Offsider Relationship Specialty Start Date End Date Solomon Ortiz MD [address] [place] [address] PCP - General Family Medicine 05/23/19 02/06/21 Tristan Crawford MD [address] [place] [address] PCP - General Emergency Medicine 02/07/21 Migue Arevalo MD [address] [facility] [place] [address] Consulting Physician Cardiology 05/26/19 documented as of this encounter
--- OUTSIDE RECORDS SUMMARY | 2025-04-03 13:12 | XMS_ITS | Clinical Summary ---
Author Organization [facility] Address [address] [place] [address] Care Team Providers Care Coding And Reimbursement Specialist Name Role Phone Migue Arevalo MD Unavailable [phone] Tristan Crawford MD Primary Care Provide r [...] 1 TABLET BY MOUTH DAILY 90 tablet 5 Active potassium chloride ER 20 mEq [...] 10/15/2018 Assessment & Plan (11/23/2019 1:13 PM OPTHALMIC TECH): Impression: Stable hypertension. Plan: Continue current antihypertensive regimen as directed by PCP. 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 Previous type 2 endoleak has since spontaneously resolved. CTA surveillance revealed interval decrease in [place] aneurysm sac with no evidence of endoleaks. [...] Department Care Team Description 01/16/2025 Results Follow-Up [facility] Cardiology [address] [facility] [address] [address] Vivian Gilman RN Basic metabolic panel from Last 3 Months Medical History Medical [...] on file Legal Sex Female 8:21 PM OPTHALMIC TECH Gender Identity Not on file Sexual Orientation Not on file Obstetrics History Last Filed Vital Signs Vital Sign Reading Time Taken Comments Blood Pressure 102/54 12/22/2024 10:51 AM OPTHALMIC TECH Pulse 62 12/22/2024 10:51 AM OPTHALMIC TECH Temperature 36.3 C (97.3 F) 03/18/2022 9:38 AM CDT Respiratory Rate - - Oxygen Saturation 94% 12/22/2024 10: 51 AM OPTHALMIC TECH Inhaled Oxygen Concentration - - Weight 71.2 kg (156 lb 14.4 oz) 025 10:51 AM OPTHALMIC TECH Height 162.6 cm (5' 4) 12/22/2024 10:5 1 AM OPTHALMIC TECH Body Mass Index 26.93 12/22/2024 10:51 AM OPTHALMIC TECH Plan of Treatment Health Maintenance Due Date [...] Routine 01/13/2025 10:57 AM CDT Atherosclerosis of [place] coronary artery of [place] heart without angina pectoris Mixed hyperlipidemia Primary hypertension Paroxysmal atrial fibrillation (HCC) SCREENING MAMMOGRAM BILATERAL W DARRIN Routine 01/14/2016 9:36 AM CDT from Last 3 Months or Most Recently Relevant to Health Maintenance Results * (ABNORMAL) Basic metabolic panel (01/13/2025 10:57 AM CDT) Glucose 180(H) 65 - 99 mg/dL [facility] Comment: Fasting reference interval For someone without known diabetes, a glucose value >125 mg/dL indicates that they may have diabetes and this should be confirmed with a follow-up test. BUN 35(H) 7 - 25 mg/dL [facility] Creatinine 1.39(H) 0.60 - 1.00 mg/dL [facility] eGFR 39(L) > OR = 60 mL/min/1.7 3m2 [facility] BUN/creat ratio 25(H) 6 - 22 (calc) [facility] Sodium 130(L) 135 - 146 mmol/L [facility] Potassium, pl 4.4 3.5 - 5.3 mmol/L [facility] Chloride 95(L) 98 - 110 mmol/L [facility] [place] CO2 27 20 - 32 mmol/L [facility] Calcium 8.7 8.6 - 10.4 mg/dL [facility] Blood 01/13/2025 10:5 7 AM CDT 01/13/2025 10:57 AM CDT Narrative [facility] - 01/13/2025 6:14 PM CDT FASTING:YES FASTING: YES Migue Arevalo MD LAB BLOOD ORDERABLES Final Result [facility] [address] [place] [address] * Screening Mammogram Bilateral W Darrin (01/14/2016 [...] exam. Electronically signed by: Tashi aguirre/jeet:01/14/2016 11:04:24 Control Operator: [facility] letter sent: Normal Exam Reading location: [...] made to exams dated: 07/20/2013 mammogram - [facility] and 07/02/2011 [facility]. BREAST TISSUE: There are scattered areas [...] is made to exams dated: 07/20/2013 mammogram -[facility] and 07/02/2011 [facility]. BREAST TISSUE: There are scattered areas [...] exam. Electronically signed by: Tashi aguirre/jeet:01/14/2016 11:04:24 Control Operator: Karly Hernández, [facility] letter sent: Normal Exam Reading location: BI-RADS: 1 Negative [EOD] Solomon Ortiz MD IMG MAMMO PROCEDURES Alisa l Result from Last 3 Months or Most Recently Relevant to Health Maintenance [place] [address] [facility] [place] MEDICARE [employer] [facility] [place] Member Subscriber Plan / Payer (Ef fective 2012-Present) Name:Amarilys Garvin Relation to Subscriber:Self Name:Garvin Amarilys E Payer ID:[id number] Group ID:Not on file Type:COMMERCIAL Address: [address] SUDHA Carmen Care Teams Coding And Reimbursement Specialist Relationship Specialty Start Date End Date Tristan Crawford MD [address] [place] [address] PCP - General Emergency Medicine 02/07/21 Migue Arevalo MD [address] [place] [address] Consulting Physician Cardiology 05/26/19
--- OUTSIDE RECORDS SUMMARY | 2025-04-03 13:12 | XMS_ITS | Encounter Summary ---
Author Organization [facility] Care Team Providers Care Record Label Intern Name Role Phone Solomon Ortiz MD Primary Care Provider [phone] Migue Arevalo MD Unavailable [phone] Tristan Crawford MD Primary Care Provide r Encounter Details Date Type Department Care Team (Latest Contact Info) Description 11/11/2017 Orders Only [facility] ProviderTiburcio MD [address] [place] [id number] Social History Tobacco Use Types Packs/Day Years Used Date Smoking Tobacco: Never Assessed Comments Unknown Sex and Gender Information Value Date Recorded Sex Assigned at Not on file Legal Sex Female 8:21 PM STAGECRAFT TEACHER Gender Identity Not on file Sexual Orientation Not on file documented as of this encounter Plan of Treatment Not on file documented as of this encounter Procedures Procedure Name Priority Date/Time Associated Diagnosis Comments SCAN - LABS 11/12/2017 12:00 AM STAGECRAFT TEACHER documented in this encounter Results * SCAN - LABS (11/12/2017 12:00 AM STAGECRAFT TEACHER) Narrative 11/12/2017 12:00 AM STAGECRAFT TEACHER Ordered by an unspecified provider. Historical Provider Final Res ult documented in this encounter Visit Diagnoses Not on filedocumented in this encounter Care Teams Record Label Intern Relationship Specialty Start Date End Date Solomon Ortiz MD [address] [place] [address] PCP - General Family Medicine 05/23/19 02/06/21 Tristan Crawford MD [address] [place] [address] PCP - General Emergency Medicine 02/07/21 Migue Arevalo MD [address] [place] [address] Consulting Physician Cardiology 05/26/19 documented as of this encounter
== END 2025-04-03 12:15 | disposition home or self-care (01) ==
PROVIDERS: Visit Provider Internal Medicine Hematology & Oncology
DX: R92.8 Other abnormal and inconclusive findings on diagnostic imaging of breast (principal)
CPT/HCPCS: 76642; 77061; 77065; G0279

== ENCOUNTER 2025-07-10 08:56 | Emergency (ER) | payer MEDICARE, OTHER, SELFPAY ==
[2025-07-10] VITALS (47 sets, daily range): BP systolic 47–172; BP diastolic 15–144; PULSE 72–196; RESP 22–42; TEMP 36.5; O2SAT 62–100
--- NOTE | ~2025-07-10 | XR_ITS ---
EXAMINATION: XR chest 1V portable 07/10/2025 10:34 INDICATION: SOA TECHNIQUE:A single portable AP upright frontal image of the chest was obtained COMPARISON: 09/24/2017 FINDINGS: Heart is moderately enlarged. No pneumothorax. No free air in the diaphragm. Possible small bilateral pleural effusions. Moderate-sized interstitial and airspace opacities in the mid and lower lungs. IMPRESSION: 1: Moderate-sized interstitial and airspace opacities in the mid and lower lungs. Differential includes but is not limited to edema or pneumonia. Recommend follow-up to resolution. 2. Possible small bilateral pleural effusions. Reviewed, dictated and finalized at location Q. IMPRESSION: 1: Moderate-sized interstitial and airspace opacities in the mid and lower katelyn gs. Differential includes but is not limited to edema or pneumonia. Recommend f ollow-up to resolution. 2. Possible small bilateral pleural effusions.
--- NOTE | 2025-07-10 09:00 | ECG_ITS ---
Test Date: 2025-07-10 08:57:56 Measurements Intervals [place] Rate: 185 P: 0 MS: 0 QRS: -43 QRSD: 109 T: 133 QT: 266 QTc: 468 Interpretive Statements ATRIAL FIBRILLATION WITH RAPID VENTRICULAR RESPONSE LEFT AXIS DEVIATION [QRS AXIS < -30] POSSIBLE ANTERIOR MYOCARDIAL INFARCTION , OF INDETERMINATE AGE [30 ms Q WAVE IN V3/V4, OR R < 0.2 mV IN V4] MODERATE T-WAVE ABNORMALITY, CONSIDER LATERAL ISCHEMIA [-0.1+ mV T-WAVE IN I/aVL/V5/V6] CRITICAL TEST RESULT No previous ECG available for comparison Electronically Signed On 07-10-2025 14:32:26 CDT by Edgardo Bella M.D.
--- NOTE | 2025-07-10 09:03 | ED.SOB ---
HPI - SOB/Dyspnea General Chief Complaint: Shortness of Breath/Dyspnea Stated Complaint: SOB, weakness Time Seen by Provider: 07/10/25 08:59 History of Present Illness HPI Narrative: Patient is a 80-year-old female who presents ER with shortness of breath and weakness. Ongoing for 4 days. Having difficulty getting out of bed due to her weakness and fatigue. Today she fell out of bed. No fevers or chills or sweats. No productive cough. No history of atrial fibrillation. She reports she does have history of heart failure in the past but has had no issues recently. No known sick contacts. No pain with deep breath. Patient is cool and pale on arrival. She reports she is a DNR and would not want chest compressions or intubation. Discussed that she appears to be in a rapid irregular heart rate which will necessitate medication to slow her heart down and she verbalized understanding Related Data Home Medications ?Medication ?Instructions ?Recorded ?Confirmed ?Last Taken ?Type atorvastatin 80 mg tablet 80 mg PO DAILY 11/19/20 02/06/25 Unknown History furosemide 40 mg tablet See Rx Instructions PO QAM 11/19/20 02/06/25 Unknown History isosorbide mononitrate 30 mg 30 mg PO DAILY 11/19/20 02/06/25 Unknown History tablet,extended release 24 hr losartan 25 mg tablet 25 mg PO DAILY 11/19/20 02/06/25 Unknown History metoprolol tartrate 100 mg tablet 100 mg PO DAILY 11/19/20 02/06/25 Unknown History potassium chloride 20 mEq 40 meq PO BID 11/19/20 02/06/25 Unknown History tablet,extended release(part/cryst) (Klor-Con M) spironolactone 25 mg tablet 25 mg PO DAILY 11/19/20 02/06/25 Unknown History aspirin 81 mg tablet,delayed 81 mg PO DAILY 12/30/21 02/06/25 Unknown History release (Adult Low Dose Aspirin) metolazone 2.5 mg tablet 2.5 mg QAM 10/02/22 02/06/25 Unknown History tamoxifen 20 mg tablet 20 mg PO DAILY 10/23/23 02/06/25 Unknown History Allergies Allergy/AdvReac Type Severity Reaction Status Date / Time No Known Allergies Allergy Verified 02/06/25 11:31 Review of Systems Review of Systems: All systems reviewed & are unremarkable except as noted in HPI and below Constitutional: Constitutional: Reports no additional constitutional complaints ENT: Reports system reviewed and no additional complaints, except as documented Cardiovascular: Cardiovascular: Reports no additional cardiovascular complaints Respiratory: Respiratory: Reports no additional respiratory complaints Gastrointestinal: Gastrointestinal: Reports no additional gastrointestinal complaints Musculoskeletal: Musculoskeletal: Reports no additional musculoskeletal complaints [facility] Past Medical History Medical History Encounter for other specified surgical aftercare Knee effusion, right Right knee DJD Right knee DJD Post-menopausal Other screening mammogram Chronic pain AAA (abdominal aortic aneurysm) (~2018) Blurred vision Flatulence Mumps High cholesterol Chicken pox Cataracts, both eyes Bronchitis Arthritis HLD (hyperlipidemia) CHF (congestive heart failure) CAD (coronary artery disease) HTN (hypertension) Diabetes mellitus Surgical History Surgical History Hx of lumpectomy Right breast lumpectomy w SLNB on 10/15/22 History of endovascular stent graft for abdominal aortic aneurysm (AAA) S/P hysterectomy History of heart artery stent (~2017) Family History Family History Father , 47 Heart attack due to cobalt treatment Heart attack Mother , 89 No problems noted. Social History Social History (Updated 02/06/25 @ 11:41 by Cheyanne Amador MA) Social History: Patient drinks 3 cups of caffeine daily Smoking packs per day: 1 Smoking cigarettes per day: 20.0 Years smoked: 35 Smoking pack-years: 35.00 Smoking status: Former smoker Tobacco type: cigarettes Second hand tobacco smoke exposure: No Smoking end date: 10/19/16 Alcohol intake: former Alcohol use details: rarely Substance use: never Substance use type: does not use Current Housing: Decline to Answer Concerned About Future Housing: Decline to Answer Difficulty Paying Gas/Electric Bills: Decline to Answer Difficulty Paying for Meds: Decline to Answer Currently Unemployed: Decline to Answer Education: Decline to Answer Difficulty w/ Childcare or Family Care: Decline to Answer Living arrangements: alone Occupation/Education: retired Gender identity (if verbalized by the patient): Female Sexual Orientation (if Verbalized by the Patient): Straight or Heterosexual Spiritual care concerns: No Exam Narrative: GENERAL: Ill-appearing, well-nourished, and in mild distress. HEAD: Normocephalic, atraumatic. EYES: PERRL and EOMI. ENT: Mucous membranes moist. CHEST: Clear to auscultation. No respiratory distress. HEART: Irregularly irregular rate and rhythm that is tachycardic. Normal peripheral pulses. ABDOMEN: Soft, nontender, nondistended. EXTREMITIES: Normal range of motion. No edema. SKIN: Cool, pale, poor perfusion universally. NEURO: Alert and oriented x3. PSYCH: Normal mood and affect. Course Course Emergency Course: 1137: Minimal control of heart rate with diltiazem and metoprolol. Discussed abnormal lab work including troponin/BMP/lactate/creatinine/LFTs with Cardiology. Amiodarone started at the recommendation. Patient continues to have low blood pressures the heart rate is improving with amiodarone. Patient's sister is at the bedside who is the POA. She also has a friend at bedside as well. Discussed need for central line placement and likely need for ventilator as patient is now obtunded on BiPAP. Patient is a DNR/DNI. The decision has been made for patient to be comfort care. We will stop all drips at this time for provide comfort support. We are attempting to get pastoral care to the bedside at the request of the sister. 1202: Patient became bradycardic a nap neck with agonal breathing. Received morphine 4 mg. Pronounces having at 11:54 a.m. with sister and friend at bedside. Vital Signs Vital signs: Vital Signs Temperature 97.7 F 07/10/25 08:52 Pulse Rate 177 H 07/10/25 08:52 Respiratory Rate 24 H 07/10/25 08:52 Blood Pressure 139/126 H 07/10/25 08:52 Pulse Oximetry 84 L 07/10/25 08:52 Oxygen Delivery Room Air 07/10/25 08:52 Temperature 97.7 F 07/10/25 08:52 Pulse Rate 72 07/10/25 11:43 Respiratory Rate 22 H 07/10/25 11:43 Blood Pressure 56/44 L 07/10/25 11:43 Pulse Oximetry 70 L 07/10/25 11:43 Oxygen Delivery BiPAP 07/10/25 10:04 Oxygen Flow Rate 15 07/10/25 09:20 Fraction of Inspired Oxygen 80 07/10/25 10:04 MDM - SOB/Dyspnea Lab Data 07/10/25 09:25 07/10/25 09:23 Labs: Lab Results 07/10/25 07/10/25 07/10/25 Range/Units 09:23 09: 09:35 WBC 17.9 H (4.5-10.0) K/mm3 RBC 4.37 (4.2-5.4) M/mm3 Hgb 14.2 (12.0-15.0) g/dL Hct 44.9 (37.0-47.0) % MCV 102.7 H (80-100) fl MCH 32.5 (26-34) pg MCHC 31.6 L (32-36) g/dl RDW 15.3 H (11.5-14.5) % Plt Count 114 L (150-375) k/mm3 MPV 11.1 H (7.4-10.4) fl Immature Gran % (Auto) 2.2 H (0-0.5) % Neut % (Auto) 81.5 H (45.5-73.1) % Lymph % (Auto) 6.6 L (18.3-44.2) % Cowley % (Auto) 9.3 H (2.6-8.5) % Eos % (Auto) 0.0 (0-4.4) % Baso % (Auto) 0.4 (0.2-1.2) % Lymph # (Auto) 1.17 (0.9-3.2) K/mm3 Cowley # (Auto) 1.7 H (0.1-0.6) K/mm3 Eos # (Auto) 0.0 (0-0.3) K/mm3 Baso # (Auto) 0.1 (0.0-0.1) K/mm3 Abs Immat Gran (auto) 0.39 H (0.00-0.031) K/mm3 Absolute Neuts (auto) 14.6 H (1.3-6.7) K/mm3 Absolute Nucleated RBC 0.020 H (0.0-0.012) K/mm3 Nucleated RBC % 0.1 (0.0-0.2) % PT 34.4 H (11.1-14.7) Seconds INR 3.5 APTT 45.6 H (22.3-36.8) Seconds Methemoglobin 0.3 (0-1.5) %THb Sodium 131 L (137-145) mmol/L Potassium 4.9 (3.4-5.0) mmol/L Chloride 98 (98-107) mmol/L Carbon Dioxide 9 L (22-30) mmol/L Anion Gap 24 H (4-12) mmol/L BUN 71 H D (7-17) mg/dL Creatinine 2.80 H (0.7-1.0) mg/dL Estim Creat Clear Calc 15 ml/min Estimated GFR 16 L (59 - ) Glucose 123 H (65-110) mg/dL Lactic Acid 9.9 H* (0.7-2.0) mmol/L Calcium 9.2 (8.4-10.2) mg/dL Magnesium 2.2 (1.6-2.3) mg/dL Total Bilirubin 3.8 H (0.2-1.3) mg/dL AST 1609 H (14-36) U/L ALT 1229 H (6-35) U/L Alkaline Phosphatase 68 (38-126) U/L Troponin I 0.265 H* (0.000-0.034) ng/mL NT-Pro-B Natriuret Pep > 92205 H (19.9-100) pg/mL Total Protein 6.5 (6.3-8.2) g/dL Albumin 3.7 (3.5-5.1) g/dL Influenza A (RT-PCR) Negative (Negative) Influenza B (RT-PCR) Negative (Negative) RSV (RT-PCR) Negative (Negative) SARS-CoV-2 RNA (RT-PCR) Negative (Negative) ABG Data ABG results: 07/10/25 09:35 ABG pH 7.315 L ABG pCO2 15.3 L* ABG pO2 256.6 H ABG PO2/FiO2 Ratio 2.57 ABG HCO3 7.6 L ABG O2 Saturation 99.6 ABG O2 Content 20.8 ABG Base Excess -15.6 A-a Gradient 441.1 Oxyhemoglobin 99.0 Carboxyhemoglobin 0.5 Reduced Hemoglobin 0.2 Total Hemoglobin 14.5 FiO2 100 Imaging Data Radiologist's impression: ITS Impressions Chest X-Ray 07/10/25 10:35 IMPRESSION: 1: Moderate-sized interstitial and airspace opacities in the mid and lower lungs. Differential includes but is not limited to edema or pneumonia. Recommend follow-up to resolution. 2. Possible small bilateral pleural effusions. ECG Data EKG #1: ECG completion date: 07/10/25 ECG completion time: 08:57 EKG Interpretation: tachycardia, atrial fibrillation, non-specific ST changes, normal QRS and left axis EKG #2: ECG completion date: 07/10/25 ECG completion time: 09:47 EKG Interpretation: tachycardia (122), atrial fibrillation, non-specific ST changes, normal QRS and normal QT Critical Care Time Critical Care Time Critical Care Time: Yes Total Critical Care Time: 60 Discharge Plan Discharge Clinical Impression: Pneumonia, Severe sepsis, Multisystem organ failure Patient Disposition: Condition: Patient Language: [place] Citizen Prescriptions: No Action tamoxifen 20 mg Tablet 20 mg PO DAILY aspirin [Adult Low Dose Aspirin] 81 mg tablet,delayed release (DR/EC) 81 mg PO DAILY Patient Comments: QAM isosorbide mononitrate 30 mg tablet extended release 24 hr 30 mg PO DAILY Patient Comments: QAM furosemide 40 mg tablet See Rx Instructions PO QAM Rx Instructions: TAKE 1 AND 1/2 TABLETS PO every morning; atorvastatin 80 mg tablet 80 mg PO DAILY losartan 25 mg tablet 25 mg PO DAILY spironolactone 25 mg tablet 25 mg PO DAILY potassium chloride [Klor-Con M20] 20 mEq tablet,ER particles/crystals 40 meq PO BID metoprolol tartrate 100 mg tablet 100 mg PO DAILY Patient Comments: QAM fluticasone propionate [Flonase Allergy Relief] 50 mcg/actuation spray,suspension 1 spray intranasal BID Qty: 48 0RF Rx Instructions: administer into each nostril metolazone 2.5 mg tablet 2.5 mg QAM docusate sodium [Colace] 100 mg capsule 100 mg PO BID Qty: 30 0RF glipizide 10 mg tablet See Rx Instructions .ROUTE .COMPLEX Qty: 180 2RF Dose Instruction: TAKE 1 TABLET BY MOUTH TWICE DAILY BEFORE BREAKFAST AND SUPPER Rx Instructions: TAKE 1 TABLET BY MOUTH TWICE DAILY BEFORE BREAKFAST AND SUPPER Januvia 50 mg tablet See Rx Instructions .ROUTE .COMPLEX Qty: 90 2RF Dose Instruction: TAKE 1 TABLET BY MOUTH DAILY Rx Instructions: TAKE 1 TABLET BY MOUTH DAILY meloxicam 15 mg tablet 15 mg PO BID Qty: 180 2RF Follow-up/Referrals: UNKNOWN,DOCTOR [Primary Care Provider]
--- NOTE | 2025-07-10 09:17 | PC.NURSE ---
15 mg of Diltiazem IV given per verbal order by ED P dr Sierra.
[2025-07-10] MEDS: METOPROLOL TARTRATE INJ 5 MG/5 ML VIAL IV PUSH (09:26)
[2025-07-10 09:29] LABS: Hematocrit 44.9 % (37.0-47.0); Hemoglobin 14.2 g/dL (12.0-15.0); Immature Granulocyte Percent A 2.2 % (0-0.5); Lymphocytes Absolute Auto 1.17 K/mm3 (0.9-3.2); Mean Corpuscular HGB Conc 31.6 g/dl (32-36); Mean Corpuscular Hemoglobin 32.5 pg (26-34); Mean Corpuscular Volume 102.7 fl (80-100); Nucleated Red Blood Cells Absolute Auto 0.020 K/mm3 (0.0-0.012); Nucleated Red Blood Cells Perc 0.1 % (0.0-0.2); Platelet Count Result 114 k/mm3 (150-375); Red Blood Count 4.37 M/mm3 (4.2-5.4); White Blood Count 17.9 K/mm3 (4.5-10.0)
[2025-07-10 09:40] LABS: Alveolar/Arterial O2 Gradient 441.1 mmHg; Carboxyhemoglobin 0.5 % THb (0-2.0); Fractional Inspired Oxygen 100 %; HCO3 ABG 7.6 mEq/l (22.0-26.0); Methemoglobin ABG 0.3 %THb (0-1.5); Oxygen Content ABG 20.8 %vol (16.0-22.0); Oxygen Saturation ABG 99.6 % (95.0-100.0); PO2 ABG 256.6 mmHg (80.0-100.0); PO2 FiO2 Ratio Arterial Blood 2.57 %; Reduced Hemoglobin 0.2 %THb (0-5.0)
--- NOTE | 2025-07-10 09:40 | ECG_ITS ---
Test Date: 2025-07-10 09:47:54 Measurements Intervals [place] Rate: 122 P: 0 UT: 0 QRS: -48 QRSD: 109 T: 150 QT: 307 QTc: 438 Interpretive Statements ATRIAL FIBRILLATION WITH RAPID VENTRICULAR RESPONSE LEFT ANTERIOR FASCICULAR BLOCK [QRS AXIS <= -45, QR IN I, RS IN II] PROBABLE LATERAL MYOCARDIAL INFARCTION , OF INDETERMINATE AGE [35 ms Q WAVE IN I/aVL/V5/V6] T-WAVE ABNORMALITIES; CONSIDER ISCHEMIA Compared to ECG 07/10/2025 08:57:56 VENTRICULAR RATES HAVE IMPROVED Electronically Signed On 07-10-2025 14:35:16 CDT by Edgardo Bella M.D.
[2025-07-10 09:41] LABS: INR 3.5; Prothrombin Time 34.4 Seconds (11.1-14.7)
[2025-07-10] MEDS: ONDANSETRON INJ 4 MG/2 ML VIAL IV PUSH (09:41)
[2025-07-10 09:42] LABS: Partial Thromboplastin Time 45.6 Seconds (22.3-36.8)
[2025-07-10 09:47] LABS: Albumin Level 3.7 g/dL (3.5-5.1); Alkaline Phosphatase 68 U/L (38-126); Anion Gap 24 mmol/L (4-12); Bilirubin,Total 3.8 mg/dL (0.2-1.3); Blood Urea Nitrogen 71 mg/dL (7-17); Calcium 9.2 mg/dL (8.4-10.2); Carbon Dioxide 9 mmol/L (22-30); Chloride 98 mmol/L (98-107); Estimated CRCL calculation 15 ml/min; Estimated Glomerular Filt Rate 16; Glucose 123 mg/dL (65-110); Magnesium 2.2 mg/dL (1.6-2.3); Potassium 4.9 mmol/L (3.4-5.0); Sodium 131 mmol/L (137-145); Total Protein 6.5 g/dL (6.3-8.2)
[2025-07-10] MEDS: SODIUM CHLORIDE 0.9% IV 1,000 ML 999 ML IV CONT ×2 (09:52→09:53)
--- OUTSIDE RECORDS SUMMARY | 2025-07-10 10:01 | XMS_ITS | Clinical Summary ---
Author Organization [facility] Hermes mitchell [facility] Address [address] [place] [address] Care Team Providers Care Fuel Tank Sealer And Tester Name Role Phone Tristan Crawford MD Primary Care Provider [phone] Allergies No known active allergies Medications atorvastatin [...] Encounters Date Type Department Care Team Description 06/27/2025 External Device Data [facility] ABSTRACTION Provider, Abstract 06/20/2025 External Device Data [facility] ABSTRACTION Provider, Abstract 06/07/2025 External Device Data [facility] ABSTRACTION Provider, Abstract 05/03/2025 External Device Data [facility] ABSTRACTION Provider, Abstract 05/03/2025 External Device Data [facility] ABSTRACTION Provider, Abstract 05/03/2025 External Device Data [facility] ABSTRACTION Provider, Abstract [...] on file Legal Sex Female 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 Gender Identity Not on file Sexual Orientation [...] 162.6 cm (5' 4) 11/04/2022 3:02 PM COUNTY ADVISER Body Mass Index 26.54 11/04/2022 3:02 PM COUNTY ADVISER Plan of Treatment Upcoming Encounters Date Type Department Care Team (Late st Contact Info) Description 07/12/2025 11:00 AM CDT Office Visit [facility] Oncology and Hematology - Sandip [address] [place] [address] Panda Busby MD [address] [facility] [address] [place] [address] Health Maintenance Due Date Last Done Comments DTAP/TDAP/TD VACCINES (1 - Tdap) 1964 PNEUMOCOCCAL VACCINE 50+ YEARS (1 of 2 - PCV) 04/25/19 [birth year] Traditional Medicare (ACO) Annual Wellness Visit 04/25 ZOSTER VACCINE (1 of 2) 1997 RSV VACCINE (60+ or ) (1 - 1-dose 75+ series) 2022 INFLUENZA VACCINE (#1) 2025 OSTEOPOROSIS SCREENING 03/10/2028 03/10/2023 Insurance MEDICARE [facility] [facility] Care Teams Fuel Tank Sealer And Tester Relationship Specialty Start Date End Date Tristan Crawford MD [address] [place] [address] PCP - General Internal Medicine 10/31/22
[2025-07-10 10:03] LABS: PCO2 ABG 15.3 mmHg (35.0-45.0)
[2025-07-10 10:05] LABS: Influenza A QL RT-PCR Negative (Negative); Influenza B QL RT-PCR Negative (Negative); RSV RNA, RT-PCR Negative (Negative); SARS-CoV-2 RNA PCR Negative (Negative)
[2025-07-10 10:11] LABS: NT Pro B Type Natriuretic Pept > 30000 pg/mL (19.9-100)
[2025-07-10 10:15] LABS: Alanine Aminotransferase 1229 U/L (6-35)
[2025-07-10 10:18] LABS: Troponin I 0.265 ng/mL (0.000-0.034)
[2025-07-10] MEDS: dilTIAZem 100 MG/100 ML 100 MG/100 ML BAG IV CONT (10:36)
[2025-07-10] MEDS: cefTRIAXone 1 GM in SODIUM CHLORIDE 0.9% IV 50 ML 100 ML IVPB (10:44)
[2025-07-10] MEDS: STAT BOLUS COMMUNICATION ORDER 2184 ML IV CONT (10:49)
[2025-07-10 11:10] LABS: Aspartate Amino Transferase 1609 U/L (14-36)
[2025-07-10] MEDS: AZITHROMYCIN IV 500 MG in SODIUM CHLORIDE 0.9% IV 250 ML IVPB (11:23)
--- NOTE | 2025-07-10 11:42 | PC.NURSE ---
Pt is non responsive, agonal breathing, family at bedside decided to do comfort care only.
[2025-07-10] MEDS: MORPHINE SULFATE (*CRX) 4 MG/ML INJ IV PUSH (11:51)
--- NOTE | 2025-07-10 11:58 | PC.NURSE ---
Pt at 1154.
--- NOTE | 2025-07-10 13:04 | PCCCNOTE ---
Call received from charge nurse requesting pastoral care for pt as comfort care was instituted. Met with sister Tamra and pt's friend. Tamra requested last rights. Attempt was made to locate spike driver, locally, to perform last rights mainly due to time but pt passed quickly prior to locating an available spike driver. Tamra states pt has arrangements made & prepaid with [facility] in [place]. She will stop by there on her way home to see what she needs to do. Nursing staff called rolloff truck driver and took are of [facility]. Family was free to go whenever they are ready and staff will take care of pt's transferring to [facility].
== END 2025-07-10 13:20 | disposition expired ==
PROVIDERS: Physician Assistant; Emergency Provider Emergency Medicine
DX: A41.9 Sepsis, unspecified organism (principal); R65.20 Severe sepsis without septic shock; J18.9 Pneumonia, unspecified organism; Z20.822 Contact with and (suspected) exposure to COVID-19; I50.9 Heart failure, unspecified; I11.0 Hypertensive heart disease with heart failure; I25.10 Atherosclerotic heart disease of native coronary artery without angina pectoris; E78.00 Pure hypercholesterolemia, unspecified; E11.9 Type 2 diabetes mellitus without complications; M17.11 Unilateral primary osteoarthritis, right knee; Z66 Do not resuscitate; Z95.5 Presence of coronary angioplasty implant and graft; Z87.891 Personal history of nicotine dependence; Z90.710 Acquired absence of both cervix and uterus; Z79.82 Long term (current) use of aspirin; Z79.899 Other long term (current) drug therapy; Z79.84 Long term (current) use of oral hypoglycemic drugs; I48.91 Unspecified atrial fibrillation; R94.31 Abnormal electrocardiogram [ECG] [EKG]; I44.4 Left anterior fascicular block
CPT/HCPCS: 36415; 36600; 51702; 71045; 80053; 82375; 82805; 83050; 83605; 83735; 83880; 84484; 85018; 85025; 85610; 85730; 87040; 87637; 93005; 96365; 96367; 96368; 96375; 96376; 99284; J0282; J0456; J0616; J0696; J1163; J2270; J2405; J7030; J7050